=== PATIENT | female | born 1970 ===

== ENCOUNTER 2020-05-26 09:29 | Outpatient (REF) | payer MEDICAID, SELFPAY ==
--- NOTE | 2020-05-26 09:34 | CT_ITS ---
EXAMINATION: CT ABDOMEN WITHOUT AND WITH CONTRAST CLINICAL INFORMATION: Disorder of adrenal gland COMPARISON: CT abdomen and pelvis with and without contrast 06/25/2018 TECHNIQUE: Contiguous axial thin section helical images of the abdomen were performed before and after the administration of oral contrast and 85 mL of Omnipaque 350 intravenous contrast. The data set was reformatted in the coronal and sagittal planes and reviewed on an independent workstation. This CT examination was performed using dose optimization techniques as appropriate, variously including the following: *Automated exposure control *Adjustment of mA and/or kV according to patient size (this includes techniques or standardized protocols for targeted exams where dose is matched to indication/reason for exam; i.e. extremities or head) *Use of iterative reconstruction technique DLP: 578 mGy-cm FINDINGS: LUNG BASES: There is dependent bibasilar atelectasis. The heart size is normal. LIVER, GALLBLADDER, AND BILIARY TREE: The liver is normal size, shape and position. There is homogeneous liver enhancement without any focal lesion or intrahepatic ductal dilatation. The gallbladder is nondistended but appears unremarkable. PANCREAS: The pancreas is normal size and shape. No focal lesion seen. SPLEEN: The spleen is unremarkable. ADRENAL GLANDS AND KIDNEYS: The right adrenal lesion measuring 2.2 x 1.6 cm. On precontrast it measures -9 Hounsfield units. On immediate post contrast, it measures 58 Hounsfield units and delayed 10 minute washout measures 21 Hounsfield units. Relative washout of greater than 40% and low precontrast value is suggestive of adenoma. The left adrenal gland measures 1.3 x 1.0 cm. On precontrast exam, it measures 9.14 Hounsfield units. On immediate postcontrast exam, it measures 80 Hounsfield units and delayed 10 minute postcontrast images it measures 20 Hounsfield units. The absolute washout greater than 60%, relative washout greater than 75% suggestive of adenoma. Both kidneys are normal size, shape and position. No enhancing renal mass seen. There is a nonobstructive 2 mm radiopaque calculi, upper pole calyx left kidney. There is a 5 mm small nonenhancing cyst, upper pole right kidney. BOWEL LOOPS: Scattered stool and gas seen throughout the colon without any significant distention. The small bowel loops are normal caliber. The appendix has been surgically removed. LYMPH NODES: No abnormal size retroperitoneal or mesenteric lymph nodes seen. VASCULAR: Unremarkable. PELVIS: On partially visualized pelvis, the uterus is heterogenous and enlarged most likely from fibroid disease. BONES: There are 2 cages at L5-S1 disc level for disc fusion. No lytic or sclerotic process seen. CT/CT abdomen wo/w con IMPRESSION: 1. Bilateral adrenal adenomas. They are stable. 2. A non-obstructive 2 mm radiopaque calculi, upper pole left kidney. No hydronephrosis seen. 3. Bulky enlarged uterus, heterogenous most likely fibroid disease. These findings were seen on the previous CT abdomen and pelvic exam 06/25/2018.
[2020-05-26] MEDS: iohexoL 350 MG/ML 100 ML INFUS..BTL IV (11:05)
== END 2020-05-26 09:30 | disposition home or self-care (01) ==
LOC: HO.CT 09:29
PROVIDERS: PCP Internal Medicine; Visit Provider Internal Medicine
DX: E27.9 Disorder of adrenal gland, unspecified (principal); K31.9 Disease of stomach and duodenum, unspecified; R93.5 Abnormal findings on diagnostic imaging of other abdominal regions, including retroperitoneum
CPT/HCPCS: 74170; Q9967

== ENCOUNTER → 2020-09-24 10:54 | Outpatient (BNVA) | payer MEDICAID, SELFPAY | PROVIDERS: PCP Internal Medicine; Visit Provider Obstetrics & Gynecology ==

== ENCOUNTER 2020-10-07 13:12 | Outpatient (REF) | payer MEDICAID, SELFPAY ==
[2020-10-07 15:02] LABS: Hematocrit 48.3 % (37-47); Mean Corpuscular HGB Conc 33.1 g/dl (31.0-35.0); Mean Corpuscular Volume 96.6 fL (80-98); Mean Platelet Volume 10.1 fL (9.4-12.3); Platelet Count 286 X10*3/uL (160-400); Red Cell Distribution Width 12.8 % (11.0-16.0); White Blood Count 11.1 X10*3/uL (4.8-10.8)
[2020-10-07 17:47] LABS: HCG Quantitative < 2 mIU/mL; Thyroid Stimulating Hormone 0.36 uIU/mL (0.32-4.0)
[2020-10-07 17:59] LABS: CT PCR NOT DETECTED (Not Detect.); NG PCR NOT DETECTED (Not Detect.)
[2020-10-10 01:07] LABS: HPV mRNA E6/E7 rflx Not Detected (Not Detected)
== END 2020-10-07 13:13 | disposition home or self-care (01) ==
LOC: HO.LAB 13:12
PROVIDERS: PCP Internal Medicine; Visit Provider Obstetrics & Gynecology
DX: N92.1 Excessive and frequent menstruation with irregular cycle (principal)
CPT/HCPCS: 36415; 58100; 58301; 84443; 84702; 85027; 87491; 87591; 87624; 88142; 88305; 99212

== ENCOUNTER 2020-10-14 10:56 | Outpatient (REF) | payer MEDICAID, SELFPAY ==
--- NOTE | ~2020-10-14 | US_ITS ---
EXAMINATION: PELVIC ULTRASOUND CLINICAL INFORMATION: Excessive and frequent menstruation with irregular cycle COMPARISON: Previous Pelvic ultrasound December 2018 and pelvic MRI January 2019 TECHNIQUE: transabdominal and transvaginal pelvic ultrasound was performed. Transvaginal exam was performed for better visualization of the uterus and ovaries. FINDINGS: The uterus is anteverted. The uterus is enlarged measuring 11.3 x 7.6 x 8.6 cm in dimension. Uterine echotexture is diffusely heterogeneous again suggestive of adenomyosis. There are 3 small focal hypoechoic uterine lesions measuring 2 x 1.1 x 1.9 cm in the anterior uterine body, 1.6 x 1.2 x 1.4 cm in the right uterine body and 0.8 x 0.6 x 1.1 cm in the anterior uterine body questionable for focal adenomyomas versus small fibroids. There are small cysts seen in the uterus near the endometrium. The endometrium does not appear thickened measuring 0.4 cm. There are small nabothian cysts in the cervix. The right ovary is enlarged measuring 4.3 x 2.7 x 4.4 cm, volume 27 mL. There is a 3.1 x 2.7 x 3.5 cm simple right ovarian cyst. The left ovary measures 3 x 1.4 x 2.7 cm, volume 7 mL and is normal-appearing. There is no fluid in the pelvis. There is a 1.4 x 1.1 x 2 cm simple cyst seen in the posterior cul-de-sac on transvaginal imaging. US/US pelvic complete IMPRESSION: Enlarged heterogeneous uterus likely related to adenomyomatosis. 3 small focal uterine lesions, largest measuring 2 cm, questionable for focal adenomyomas versus small fibroids. Normal thickness endometrium. 3.1 x 2.7 x 3.5 cm simple right ovarian cyst. 1.4 x 1.1 x 2 cm simple cyst seen on transvaginal imaging in the posterior cul-de-sac.
== END 2020-10-14 10:57 | disposition home or self-care (01) ==
LOC: HO.US 10:56
PROVIDERS: PCP Internal Medicine; Visit Provider Internal Medicine
DX: N92.1 Excessive and frequent menstruation with irregular cycle (principal)
CPT/HCPCS: 76830; 76856

== ENCOUNTER → 2020-10-26 16:02 | Outpatient (BNVA) | payer MEDICAID, SELFPAY | PROVIDERS: PCP Internal Medicine; Visit Provider Obstetrics & Gynecology ==

== ENCOUNTER 2020-11-27 11:22 | Outpatient (REF) | payer MEDICAID, SELFPAY ==
--- NOTE | ~2020-11-27 | MM_ITS ---
EXAMINATION: MM SCREENING DIGITAL BREAST TOMOSYNTHESIS, BILATERAL CLINICAL INFORMATION: Screening. Asymptomatic. History reduction mammoplasty 2013. Due for yearly. The lifetime risk of breast cancer based on the Tyrer-Cuzick Model is 11%. COMPARISON: Mammography: 10/09/2018, 04/05/2017, 12/24/2015, 07/10/2014, 05/15/2017, 12/24/2015, 07/10/2014 TECHNIQUE: Digital breast tomosynthesis is performed in both the craniocaudal and mediolateral oblique views along with computer-aided detection (CAD). Synthesized 2D images are generated from the tomosynthesis. FINDINGS: There are scattered areas of fibroglandular density (ACR BI-RADS breast composition Category b). Parenchymal pattern is similar to prior studies. There are shifting fibroglandular densities from year to year consistent positioning and compression without significant mass, architectural abnormality, or abnormal calcifications. The axilla and skin contours are unremarkable. No significant changes. MM/MM tomosynthesis screening BI IMPRESSION: No significant changes from prior studies. ASSESSMENT: BI-RADS 2: Benign RECOMMENDATION: Routine annual mammography screening. This patient's information was entered into a reminder system with a target due date for their next mammogram.
== END 2020-11-27 11:23 | disposition home or self-care (01) ==
LOC: HO.MAMMO 11:22
PROVIDERS: PCP Internal Medicine; Visit Provider Obstetrics & Gynecology
DX: Z12.31 Encounter for screening mammogram for malignant neoplasm of breast (principal)
CPT/HCPCS: 77063; 77067

== ENCOUNTER 2021-03-10 14:13 | Outpatient (REF) | payer MEDICAID, SELFPAY ==
[2021-03-10 16:14] LABS: Hematocrit 36.7 % (37-47); Hemoglobin 11.4 g/dl (12.0-16.0); Mean Corpuscular HGB Conc 31.1 g/dl (31.0-35.0); Mean Corpuscular Hemoglobin 25.1 pg (27.0-33.0); Mean Corpuscular Volume 80.8 fL (80-98); Mean Platelet Volume 9.9 fL (9.4-12.3); Red Blood Count 4.54 X10*6/uL (4.20-5.50); Red Cell Distribution Width 16.4 % (11.0-16.0); White Blood Count 11.2 X10*3/uL (4.8-10.8)
[2021-03-10 16:28] LABS: Platelet Count 463 X10*3/uL (160-400)
== END 2021-03-10 14:14 | disposition home or self-care (01) ==
LOC: HO.LAB 14:13
PROVIDERS: PCP Internal Medicine; Visit Provider Obstetrics & Gynecology
DX: N93.9 Abnormal uterine and vaginal bleeding, unspecified (principal)
CPT/HCPCS: 36415; 85027; 99212

== ENCOUNTER 2022-04-06 14:54 | Outpatient (REF) | payer MEDICAID, SELFPAY ==
--- NOTE | ~2022-04-06 | MM_ITS ---
EXAMINATION: MM SCREENING DIGITAL BREAST TOMOSYNTHESIS, BILATERAL CLINICAL INFORMATION: Screening. Asymptomatic. History reduction mammoplasty, 2013. The lifetime risk of breast cancer based on the Tyrer-Cuzick Model is 11%. COMPARISON: Mammography: 11/27/2020, 10/09/2018, 04/05/2017 TECHNIQUE: Digital breast tomosynthesis is performed in both the craniocaudal and mediolateral oblique views along with computer-aided detection (CAD). Synthesized 2D images are generated from the tomosynthesis. FINDINGS: There are scattered areas of fibroglandular density (ACR BI-RADS breast composition Category b). There are no significant masses, abnormal calcifications, or other abnormalities. Parenchymal pattern is similar to prior studies. There is no developing density or architectural abnormality. The axilla and skin contours are unremarkable. No significant changes. MM/MM tomosynthesis screening BI IMPRESSION: No mammographic evidence of malignancy. ASSESSMENT: BI-RADS 1: Negative RECOMMENDATION: Routine annual mammography screening. This patient's information was entered into a reminder system with a target due date for their next mammogram.
== END 2022-04-06 14:55 | disposition home or self-care (01) ==
LOC: HO.MAMMO 14:54
PROVIDERS: Visit Provider Internal Medicine
DX: Z12.31 Encounter for screening mammogram for malignant neoplasm of breast (principal)
CPT/HCPCS: 77063; 77067

== ENCOUNTER → 2022-04-12 08:42 | Outpatient (BNVA) | payer MEDICAID, SELFPAY | PROVIDERS: PCP Internal Medicine; Visit Provider Obstetrics & Gynecology | DX: N92.0 Excessive and frequent menstruation with regular cycle (principal) | CPT/HCPCS: 99212 ==

== ENCOUNTER → 2022-10-27 10:28 | Outpatient (BNVA) | payer MEDICAID, SELFPAY | PROVIDERS: PCP Internal Medicine; Visit Provider Obstetrics & Gynecology ==

== ENCOUNTER 2022-11-10 11:00 | Outpatient (REF) | payer MEDICAID, SELFPAY ==
--- NOTE | ~2022-11-10 | US_ITS ---
EXAMINATION: US PELVIS COMPLETE CLINICAL INFORMATION: Leiomyoma; the last menstrual period was 3 weeks prior. COMPARISON: Pelvic ultrasound dated 10/14/2020; MRI pelvis dated 02/13/2019. TECHNIQUE: Transabdominal imaging was performed. FINDINGS: The uterus is of normal size and echogenicity, measuring 12.4 x 7.3 x 8.8 cm. The uterus is anteverted and anteflexed. There is asymmetric thickening of the posterior myometrium, raising the possibility of adenomyosis. A regular, homogeneous endometrium is identified measuring 0.5 cm. Nabothian cysts are seen within the cervix FIBROIDS: There are 5 fibroids seen. 1. Location: Rightward mid body, subendometrial. Size: 1.9 x 1.2 x 1.3 cm. Prior: 0.8 x 0.6 x 1.1 cm. Fibroid characteristics: Heterogeneous echotexture. 2. Location: Leftward body, myometrial. Size: 1.5 x 0.7 x 1.1 cm. Prior: Not seen. Fibroid characteristics: Heterogeneous echotexture. 3. Location: Upper rightward body, subendometrial. Size: 1.6 x 2.7 x 2.0 cm. Prior: 2.0 x 1.1 x 1.9 cm per Fibroid characteristics: Hyperechoic. 4. Location: Left isthmus, myometrial. Size: 1.1 x 1.1 x 0.8 cm. Prior: Not seen. Fibroid characteristics: Heterogeneous echotexture. 5. Location: Rightward fundus, myometrial. Size: 1.9 x 1.9 x 2.0 cm. Prior: 1.6 x 1.2 x 1.4 cm. Fibroid characteristics: Heterogeneous echotexture. Both ovaries are of normal size and echogenicity. The right ovary measures 3.2 x 2.5 x 1.8 cm for a volume of 7.5 mL. The left ovary measures 4.3 x 1.9 x 2.7 cm for a volume of 11.6 mL. The left ovary contains a 2.0 cm anechoic, simple, dominant follicle. There is a small amount of free fluid in the cul-de-sac. Within the cul-de-sac, a 2.2 x 1.2 x 1.9 cm simple cyst is seen, possibly a paraovarian cyst. US/US pelvic and transvaginal IMPRESSION: 1. There is uterine fibroid disease. 2. There is asymmetric thickening of the posterior myometrium, raising the possibility of adenomyosis. This is consistent with prior MRI findings. 3. Nabothian cysts are seen within the cervix. 4. A 2.0 cm benign, simple left ovarian cyst is seen, for which no imaging follow-up is recommended. 5. Within the cul-de-sac, a 2.2 cm simple cyst is seen, possibly a paraovarian cyst. 6. A 2.0 cm benign, simple left ovarian dominant follicle is noted.
== END 2022-11-10 11:01 | disposition home or self-care (01) ==
LOC: HO.US 11:00
PROVIDERS: PCP Internal Medicine; Visit Provider Obstetrics & Gynecology
DX: D25.9 Leiomyoma of uterus, unspecified (principal)
CPT/HCPCS: 76830; 76856

== ENCOUNTER → 2022-12-01 10:08 | Outpatient (BNVA) | payer MEDICAID, SELFPAY | PROVIDERS: PCP Internal Medicine; Visit Provider Obstetrics & Gynecology | DX: D25.9 Leiomyoma of uterus, unspecified (principal) | CPT/HCPCS: 99212 ==

== ENCOUNTER 2023-04-28 15:10 | Outpatient (REF) | payer MEDICAID, SELFPAY | END 2023-04-28 15:11 | disposition home or self-care (01) | LOC: HO.MAMMO 15:10 | PROVIDERS: PCP Internal Medicine; Visit Provider Internal Medicine | DX: Z12.31 Encounter for screening mammogram for malignant neoplasm of breast (principal) | CPT/HCPCS: 77063; 77067 ==

== ENCOUNTER → 2023-04-28 15:15 | Outpatient (BNV) | payer MEDICAID, SELFPAY | PROVIDERS: PCP Internal Medicine; Visit Provider Radiology Diagnostic Radiology | DX: Z12.31 Encounter for screening mammogram for malignant neoplasm of breast (principal) | CPT/HCPCS: 77063; 77067 ==

== ENCOUNTER 2023-11-09 10:06 | Outpatient (AMB) | payer MEDICAID, SELFPAY ==
[2023-11-09 10:25] VITALS: BP 112/68; BMI 30.3
--- NOTE | 2023-11-09 10:25 | A.OFFVIS_ITS ---
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 No complaints. Last Pap/HPV was negative in 10/21 Last Mammogram was BI-RADS 1 in 04/24 Last pelvic ultrasound in 11/22 showed multiple myomas Last Colonoscopy was few years ago, the patient is unsure of the date but was told by her PCP that she has not due for a screening colonoscopy this year [facility] Medical History HTN (hypertension) H/O nephrolithotomy with removal of calculi Back problem Kidney stones Surgical History History of appendectomy Hx of abdominoplasty History of breast reconstruction History of bilateral tubal ligation Family History Mother HTN (hypertension) Father Emphysema lung Social History (Updated 11/09/23 @ 10:33 by Marsha Thomas CMA) Household Members Other:: daughter Housing: House Alcohol intake: never Patient Tobacco Use Status: Current everyday Tobacco user Cigarettes Per Day: 1 Current occupational status: unemployed Sexually active: Yes Sexual orientation: Straight/Heterosexual Gender identity: Female Female Reproductive History Menstrual Age of Menarche: 13 Date of last menstrual period: 10/15/23 Total pregnancies: 3 Full term: 2 Number of Living Children: 2 Ab spontaneous: 1 Date of last pap smear: 10/08/20 Date of Mammogram: 04/28/23 Review of Systems Const All systems reviewed & are unremarkable except as noted in HPI and below Card Reports as per HPI Resp Reports as per HPI GI Reports as per HPI and Reports no additional complaints Reports as per HPI Physical Exam Vital Signs: BMI result Body Mass Index 30.3 Const General: cooperative, healthy appearing and comfortable Chest Chest palpation & inspection: normal inspection of the chest and normal palpa tion of entire chest wall Breast/axilla inspection: normal inspection of the breasts and normal inspection of the axillae Breast/axilla palpation: normal palpation of the breasts, normal palpation of the axillae and no axillary lymphadenopathy Resp Effort & Inspection: normal respiratory effort Auscultation: clear to auscultation bilaterally Percussion: percussion normal Cardio Palpation: normal PMI Rate: regular rate Rhythm: regular rhythm Heart sounds: no murmurs and no rubs Peripheral pulses: Peripheral pulses 2+ throughout GI Inspection: Yes normal to inspection Palpation (GI): Soft to palpation, nontender, no guarding, not rigid and No hepatosplenomegaly present Percussion: Yes normal to percussion Auscultation: normal bowel sounds Rectal Exam - Female: deferred General: Yes bladder normal to palpation External Female Exam: No lesion Speculum Exam - Vagina: normal appearance of the vagina, normal palpation, normal vaginal discharge and not erythematous Speculum Exam - Cervix: normal appearance of the cervix and normal palpation Bimanual exam- vagina & uterus: normal bimanual exam, normal palpation, uterine size normal, bladder normal to palpation, consistency normal and normal palpation Bimanual Exam- Adnexa, other: normal adnexae, no masses and no tenderness Assessment & Plan Assessment & Plan (1) Well woman exam: Code(s): Z01.419 - Encounter for gynecological examination (general) (routine) without abnormal findings Category: Medical Plan: Co testing not indicated this year. Counseled the patient about the recommended dietary allowance of 1200 mg of Calcium & 600 IU of vitamin D. Instructions given the patient check on her next due date for her screening colonoscopy and to schedule next screening Mammogram in 04/25. The patient was instructed to perform monthly self-breast exams and schedule annual exam in a year. All questions answered and the patient verbalized understanding. (2) Uterine myoma: Code(s): D25.9 - Leiomyoma of uterus, unspecified Category: Medical Plan: Will repeat pelvic ultrasound and compare the size of previous myomas. Instructions given the patient to schedule the ultrasound and a follow-up appointment, all questions answered, the patient verbalized understanding Orders: Orders US pelvic and transvaginal Today D25.9 - Leiomyoma of uterus, unspecified Coding Level of Care Code Est Pt Prev Care 40-64y(87375) Diagnoses Well woman exam Z01.419 Uterine myoma D25.9
== END 2023-11-09 10:47 | disposition home or self-care (01) ==
LOC: HO.HWS 10:06
PROVIDERS: PCP Internal Medicine; Visit Provider Obstetrics & Gynecology
DX: Z01.419 Encounter for gynecological examination (general) (routine) without abnormal findings (principal); D25.9 Leiomyoma of uterus, unspecified
CPT/HCPCS: 99396

== ENCOUNTER → 2023-11-09 10:06 | Outpatient (BNVA) | payer MEDICAID, SELFPAY | PROVIDERS: PCP Internal Medicine; Visit Provider Obstetrics & Gynecology | DX: Z01.419 Encounter for gynecological examination (general) (routine) without abnormal findings (principal); D25.9 Leiomyoma of uterus, unspecified | CPT/HCPCS: 99396 ==

== ENCOUNTER 2023-11-21 11:20 | Outpatient (REF) | payer MEDICAID, SELFPAY ==
--- NOTE | ~2023-11-21 | US_ITS ---
EXAMINATION: US PELVIS COMPLETE CLINICAL INFORMATION: Leiomyoma; the last menstrual period was on 11/14/2023. COMPARISON: Pelvic ultrasound dated 11/10/2022. TECHNIQUE: Transabdominal imaging was performed. FINDINGS: The uterus is of normal size and echogenicity, measuring 1.2 x 7.8 x 8.2 cm. The uterus is anteverted and anteflexed. A regular homogeneous endometrium is identified measuring 0.5 cm. Nabothian cysts are seen within the cervix FIBROIDS: There are 5 fibroids seen. 1. Location: Rightward body, myometrial. Size: 1.1 x 0.8 x 1.1 cm. Prior: 1.9 x 1.2 x 1.3 cm. Fibroid characteristics: Heterogeneously hypoechoic. 2. Location: Leftward body, subserosal. Size: 1.4 x 1.2 x 1.3 cm. Prior: 1.5 x 0.7 x 1.1 cm. Fibroid characteristics: Heterogeneous echotexture. 3. Location: Upper rightward body, subendometrial. Size: 2.2 x 1.4 x 2.5 cm. Prior: 1.6 x 2.7 x 2.0 cm. Fibroid characteristics: Hypoechoic. 4. Location: Upper leftward body towards the isthmus, myometrial. Size: 1.8 x 1.5 x 1.4 cm. Prior: 1.1 x 1.1 x 0.8 cm. Fibroid characteristics: Heterogeneously hypoechoic. 5. Location: Rightward fundus, myometrial. Size: 1.7 x 1.4 x 1.5 cm. Prior: 1.9 x 1.9 x 2.0 cm. Fibroid characteristics: Heterogeneously hypoechoic. Both ovaries are of normal size and echogenicity. [The ovaries show normal doppler flow.] The right ovary measures 2.8 x 2.3 x 2.2 cm for a volume of 7.4 mL. The left ovary measures 3.1 x 2.5 x 1.7 cm for a volume of 6.9 mL. The left ovary contains a 1.8 cm benign, simple follicle, for which no imaging follow-up is recommended. There is no pelvic free fluid. No adnexal solid mass is seen. A 2.2 x 1.2 x 2.1 cm left paraovarian cyst is seen. US/US pelvic and transvaginal IMPRESSION: 1. Multiple uterine fibroids are redemonstrated. 2. Nabothian cysts are seen within the cervix. 3. A 2.2 cm left paraovarian cyst is seen.
== END 2023-11-21 11:21 | disposition home or self-care (01) ==
LOC: HO.US 11:20
PROVIDERS: PCP Internal Medicine; Visit Provider Obstetrics & Gynecology
DX: D25.9 Leiomyoma of uterus, unspecified (principal)
CPT/HCPCS: 76830; 76856

== ENCOUNTER 2024-02-05 11:48 | Outpatient (AMB) | payer MEDICAID, SELFPAY ==
--- NOTE | 2024-02-05 11:49 | MHC.OFFVIS ---
Intake Visit Reasons: U/S follow up Allergies No Known Allergies [No Known Allergies*] Allergy (Verified 11/09/23 10:31) HPI Comments Details: The patient is scheduled telehealth visit to discuss the results the pelvic ultrasound. No pelvic pain or pressure symptoms with the patient's bleeding is controlled with TXA Recent pelvic ultrasound showed the following: The uterus is of normal size and echogenicity, measuring 1.2 x 7.8 x 8.2 cm. The uterus is anteverted and anteflexed. A regular homogeneous endometrium is identified measuring 0.5 cm. Nabothian cysts are seen within the cervix FIBROIDS: There are 5 fibroids seen. 1. Location: Rightward body, myometrial. Size: 1.1 x 0.8 x 1.1 cm. Prior: 1.9 x 1.2 x 1.3 cm. Fibroid characteristics: Heterogeneously hypoechoic. 2. Location: Leftward body, subserosal. Size: 1.4 x 1.2 x 1.3 cm. Prior: 1.5 x 0.7 x 1.1 cm. Fibroid characteristics: Heterogeneous echotexture. 3. Location: Upper rightward body, subendometrial. Size: 2.2 x 1.4 x 2.5 cm. Prior: 1.6 x 2.7 x 2.0 cm. Fibroid characteristics: Hypoechoic. 4. Location: Upper leftward body towards the isthmus, myometrial. Size: 1.8 x 1.5 x 1.4 cm. Prior: 1.1 x 1.1 x 0.8 cm. Fibroid characteristics: Heterogeneously hypoechoic. 5. Location: Rightward fundus, myometrial. Size: 1.7 x 1.4 x 1.5 cm. Prior: 1.9 x 1.9 x 2.0 cm. Fibroid characteristics: Heterogeneously hypoechoic. Both ovaries are of normal size and echogenicity. [The ovaries show normal doppler flow.] The right ovary measures 2.8 x 2.3 x 2.2 cm for a volume of 7.4 mL. The left ovary measures 3.1 x 2.5 x 1.7 cm for a volume of 6.9 mL. The left ovary contains a 1.8 cm benign, simple follicle, for which no imaging follow-up is recommended. There is no pelvic free fluid. No adnexal solid mass is seen. A 2.2 x 1.2 x 2.1 cm left paraovarian cyst is seen. PFSH Medical History HTN (hypertension) H/O nephrolithotomy with removal of calculi Back problem Kidney stones Surgical History History of appendectomy Hx of abdominoplasty History of breast reconstruction History of bilateral tubal ligation Family History Mother HTN (hypertension) Father Emphysema lung Social History Household Members Other:: daughter Housing: House Alcohol intake: never Patient Tobacco Use Status: Current everyday Tobacco user Cigarettes Per Day: 1 Current occupational status: unemployed Sexual orientation: Straight/Heterosexual Gender identity: Female Female Reproductive History Menstrual Age of Menarche: 13 Review of Systems Const All systems reviewed & are unremarkable except as noted in HPI and below Reports as per HPI and Reports no additional complaints GI Reports no additional complaints Reports no additional complaints Telehealth Telehealth Telehealth Platform: Telephone Location of provider rendering services: practice address Location of patient: address on file Patient Identification confirmed using: Name, : Yes Telehealth method: video Patient verbally consented to treatment: Yes Patient verbally consented to billing insurance company: Yes Patient informed of any privacy concerns related to visit: Yes Assessment & Plan Assessment & Plan (1) Uterine myoma: Code(s): D25.9 - Leiomyoma of uterus, unspecified Category: Medical Plan: Discussed with the patient the findings on pelvic ultrasound & the risk of myosarcoma; discussed with the patient the options of treatment including expectant management versus hysterectomy; the pros and cons, risks benefits of each approach were discussed with the patient including the fact that in cases of myosarcoma, surgical treatment can lead to early diagnosis and positively affects the prognosis; after further discussion, the patient decided to proceed with expectant management. Will repeat pelvic ultrasound periodically. Instructions given to patient to call in case any of the following occurs: pressure symptoms, abnormal uterine bleeding, pelvic pain; and to schedule a future office follow-up appointment for reassessment and to order a repeat ultrasound . All questions answered, the patient verbalized understanding and agreed with the plan . I spent a total of 20 minutes reviewing the chart, talking to the patient via video and documenting in the medical record. Medications: Refilled tranexamic acid 1,300 mg (2 x 650 mg) PO TID 5 days 30 tabs 11RF Coding Level of Care Code Tele Est Pt Level 1 (82340) Diagnoses Uterine myoma D25.9
== END 2024-02-05 13:13 ==
LOC: HO.HWS 11:48
PROVIDERS: PCP Internal Medicine; Visit Provider Obstetrics & Gynecology
DX: D25.9 Leiomyoma of uterus, unspecified (principal)
CPT/HCPCS: 99211

== ENCOUNTER → 2024-02-05 11:48 | Outpatient (BNVA) | payer MEDICAID, SELFPAY | PROVIDERS: PCP Internal Medicine; Visit Provider Obstetrics & Gynecology ==

== ENCOUNTER 2024-04-09 11:14 | Outpatient (REF) | payer MEDICAID, SELFPAY ==
--- NOTE | ~2024-04-09 | XR_ITS ---
EXAMINATION: XR WRIST, LEFT CLINICAL INFORMATION: Wrist pain COMPARISON: None available. TECHNIQUE: PA, lateral, and oblique views of the left wrist. FINDINGS: The bones and soft tissues are normal. No fracture. Alignment is anatomic with normal joint spaces. No erosions or abnormal soft tissue calcifications. XR/XR wrist LT min 3V IMPRESSION: Normal left wrist. Electronically signed by: Lukas Sal MD 04/09/2024 03:26 PM EDT RP
== END 2024-04-09 11:15 | disposition home or self-care (01) ==
LOC: HO.HHCX 11:14
PROVIDERS: Visit Provider Internal Medicine
DX: M25.532 Pain in left wrist (principal)
CPT/HCPCS: 73110

== ENCOUNTER 2024-06-11 14:18 | Outpatient (REF) | payer MEDICAID, SELFPAY | END 2024-06-11 14:19 | disposition home or self-care (01) | LOC: HO.MAMMO 14:18 | PROVIDERS: PCP Internal Medicine; Visit Provider Internal Medicine | DX: Z13.89 Encounter for screening for other disorder (principal) ==

== ENCOUNTER 2024-06-13 09:16 | Outpatient (AMB) | payer MEDICAID, SELFPAY ==
--- NOTE | 2024-06-13 09:28 | A.OFFVIS_ITS ---
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 Operations Specialist: Pharmacy Operations Specialist Present (Teodora) Accompanied by: Self / Same As Patient Allergies No Known Allergies [No Known Allergies*] Allergy (Verified 06/13/24 09:32) HPI Comments Details: Presenting complaining left breast tender lump no associated nipple discharge [facility] Medical History HTN (hypertension) H/O nephrolithotomy with removal of calculi Back problem Kidney stones Surgical History History of appendectomy Hx of abdominoplasty History of breast reconstruction History of bilateral tubal ligation Family History Mother HTN (hypertension) Father Emphysema lung Social History Household Members Other:: daughter Housing: House Alcohol intake: never Patient Tobacco Use Status: Current everyday Tobacco user Cigarettes Per Day: 1 Current occupational status: unemployed Sexual orientation: Straight/Heterosexual Gender identity: Female Female Reproductive History Menstrual Age of Menarche: 13 Duration of menses: 3-5 days Date of last menstrual period: 05/31/24 Physical Exam Chest Chest palpation & inspection: normal inspection of the chest, normal palpation of entire chest wall and abnormal inspection of the chest Breast/axilla inspection: normal inspection of the breasts, normal inspection of the axillae and abnormal inspection of the axilla Breast/axilla palpation: normal palpation of the breasts (Right breast within normal, left breast 02:00 o'clock 9 cm from the nipple ) Assessment & Plan Assessment & Plan (1) Breast lump on left side at 2 o'clock position: Code(s): N63.21 - Unspecified lump in the left breast, upper outer quadrant Category: Medical Plan: Discussed with the patient the finding on Breast exam (breast lump) .The differential diagnosis includes but not limited to lump/cyst/pre cancer/cancer o r dense breast tissue. The work up includes breast US and diagnostic mammogram and referred the patient for surgical breast consult. Instructed the patient to call our office back in case a referral appointment is not scheduled, missed or canceled so that we will assist on rescheduling another appointment, the patient verbalized understanding agreed with the plan. Orders: Orders MM tomosynthesis diagnostic BI Today N63.21 - Unspecified lump in the left breast, upper outer quadrant US breast LT complete Today N63.21 - Unspecified lump in the left breast, upper outer quadrant Coding Level of Care Code Est Pt Level 3 (31490) Diagnoses Breast lump on left side at 2 o'clock position N63.21
== END 2024-06-13 09:50 | disposition home or self-care (01) ==
PROVIDERS: PCP Internal Medicine; Visit Provider Obstetrics & Gynecology
DX: N63.21 Unspecified lump in the left breast, upper outer quadrant (principal)
CPT/HCPCS: 99213

== ENCOUNTER → 2024-06-13 09:16 | Outpatient (BNVA) | payer MEDICAID, SELFPAY | PROVIDERS: PCP Internal Medicine; Visit Provider Obstetrics & Gynecology | DX: N63.21 Unspecified lump in the left breast, upper outer quadrant (principal) | CPT/HCPCS: 99212 ==

== ENCOUNTER 2024-07-09 06:20 | Outpatient (REF) | payer MEDICAID, SELFPAY ==
--- NOTE | 2024-07-09 | EMG_ITS ---
Left median and ulnar motor and sensory studies were performed. Left radial and median and lateral antecubital brachial sensory studies were performed and paraspinal muscles were tested with a needle. IMPRESSION: Mild left median neuropathy across carpal tunnel. MD JOURDAN Pratt/DARIUSZ / [id number]
== END 2024-07-09 06:21 | disposition home or self-care (01) ==
LOC: HO.NEURO 06:20
PROVIDERS: PCP Internal Medicine; Visit Provider Internal Medicine
DX: M25.532 Pain in left wrist (principal)
CPT/HCPCS: 95886; 95910

== ENCOUNTER 2024-08-15 10:29 | Outpatient (REF) | payer MEDICAID, SELFPAY ==
--- OUTSIDE RECORDS SUMMARY | 2024-08-15 11:13 | XMS_ITS | Encounter Summary ---
Author Organization [employer] Address [address] [place] [address] Care Team Providers Care Call Center Support Representative Name Role Phone Marvin Harden MD Primary Care Provide r Reason for Visit * Reason Onset Date Comments Chart Prep 08/08/2024 Encounter Details Date Type Department Care Team ([facility] st Contact Info) Description 08/08/2024 Telephone [facility] MEDICINE [address] [place], [place] [phone] Marvin Harden MD [address] [place], [place] [phone] Chart Prep Social History Tobacco Use Types Packs/Day Years Used Date Smoking Tobacco: Every Day Cigarettes 0.5 39.1 Started: 1985 Passive Smoke Exposure: Current Smokeless Tobacco: Never Alcohol Use Standard Drinks/Week Comments Not Currently 0 (1 standard drink = 0.6 oz pur e alcohol) Depression Answer Date Recorded Patient Health Questionnaire-9 Score 15 04/09/2024 Patient Health Questionnaire-9 Score 15 04/09/2024 Last PHQ-9: Questionnaire Data Not on file 1 Housing Stability Answer Date Recorded What is your housing situation today? I have cayla knight 04/09/[address] you li ve. Do you have problems with any of the following? None of the above 04/09/2024 Food Insecurity Answer Date Recorded Within the past 12 months, y ou worried that your food would run out before you got money to buy more: Never True 04/09/2024 Within the past 12 months,th e food you bought just didn't last and you didn't have enough money to get more: Never True 02/2024 Transportation Answer Date Recorded In the past 12 months, has l ack of transportation kept you from medical appts, meetings, work or from getting things needed for daily living? No 04/09/2024 Utilities Answer Date Recorded In the past 12 months, has t he electric, gas, oil or water company threatened to shut off services in your home? No 04/09/2024 Depression Answer Date Recorded Patient Health Questionnaire-2 Score 5 04/09/2024 Internet Access Answer Date Recorded Internet Access Q1 Yes 04/09/2024 Internet Access Q2 Not on file 04/09/2024 Comments Unknown Sex and Gender Information Value Date Recorded Sex Assigned at Female 05/02/2022 10:16 AM EDT Legal Sex Female 10:16 AM EDT Gender Identity Female 05/02/2022 10:16 AM EDT Sexual Orientation Straight 05/02/2022 10 :16 AM EDT documented as of this encounter Miscellaneous Notes * Telephone Encounter - Yanet Murray [place] - 08/08/2024 2:39 PM EST Chart Prep Labs: not done Images: done Vaccines due: Covid Due, Hep A Due, PCV20 Due, and Flu Due Referrals: Not Applicable Screenings: Lung Cancer screening Overdue care gaps: Sbirt and PHQ-9 Chart prep for upcoming appt with Dr.Esparza james LB documented in this encounter Plan of Treatment Upcoming Encounters Date Type Department Care Team (Late st Contact Info) Description 08/20/2024 3:00 PM EST Office Visit [facility] MEDICINE [address] [place] [address] Marvin Harden MD [address] [place] [address] documented as of this encounter Goals Goal Patient Goal Type Associated Problems Recent Progress Patient-Stated? Author Blood Pressure < 140/90 Blood Pressure 134/77( 024 10:05 AM EDT) No Sid Walters, PharmD Quit using tobacco (cigarettes, smokeless, etc) Tobacco Use Tobacco dependence syndrome No Sid Walters, PharmD documented as of this encounter Visit Diagnoses Not on filedocumented in this encounter Additional Health Concerns Assessment Noted Time PHQ-9 Depression Total Score: 15 024 10:06 AM EDT documented as of this encounter Care Teams Call Center Support Representative Relationship Specialty Start Date End Date Marvin Harden MD [address] [place] [address] PCP - General Internal Medicine 07/31/14 documented as of this encounter
--- OUTSIDE RECORDS SUMMARY | 2024-08-15 11:13 | XMS_ITS | Encounter Summary ---
Author Organization [employer] Address [address] [place] [address] Care Team Providers Care Fruit Tester Name Role Phone Marvin Harden MD Primary Care Provide r Reason for Visit * Reason Comments Pre-visit Planning SDOH Screening negat kory and Tobacco screening negative Encounter Details Date Type Department Care Team ([facility] st Contact Info) Description 08/05/2024 Patient Outreach [facility] MEDICINE [address] [place], [place] [phone] Marvin Harden MD [address] [place], [place] [phone] Pre-visit Planning (SDOH Screening negative and Tobacco screening negative) Social History Tobacco Use Types Packs/Day Years [...] AM EDT documented as of this encounter Progress Notes * Ally Stephens - 08/05/2024 11:27 AM EST [facility] placed successful outbound call to patient for pre-visit planning. Patient name and confirmed. Patient confirms appt date and time, and has transportation arrangements. Biggest concern for appointment at this time is left brace script was sent [facility] but patient received a call from them stating they do not do the brace for hand there. Patient haven't been able to contact the [facility] due to keep coming in and out of the hospital with daughter. Spoke with Doris from [facility] send it to [facility] at [address] [place] [address] . Patient aware. Patient advised to bring to appointment a photo id and insurance card. Appropriate screenings completed in anticipation of appointment. Tobacco screening positive. Will need counseling. documented in this encounter Plan of Treatment Upcoming Encounters Date Type Department Care Team ([facility] st Contact Info) Description 08/20/2024 3:00 PM EST Office Visit [facility] MEDICINE [address] [place] [address] Marvin Harden MD [address] [place] [address] documented as of this encounter Goals Goal Patient Goal Type Associated Problems Recent Progress Patient-Stated? Author Blood Pressure < 140/90 Blood Pressure 134/77( 024 10:05 AM EDT) No Yen Waltersl, PharmD Quit using tobacco (cigarettes, smokeless, etc) Tobacco Use Tobacco dependence syndrome No Sid Walters, PharmD documented as of this encounter Visit Diagnoses Not on filedocumented in this encounter Additional Health Concerns Assessment Noted Time PHQ-9 Depression Total Score: 15 024 10:06 AM EDT documented as of this encounter Care Teams Fruit Tester Relationship Specialty Start Date End Date Marvin Harden MD [address] [place] [address] PCP - General Internal Medicine 07/31/14 documented as of this encounter
--- OUTSIDE RECORDS SUMMARY | 2024-08-15 11:13 | XMS_ITS | Clinical Summary ---
Author Organization [facility] Address [address] [place] [address] Care Team Providers Care It Help Desk Analyst Name Role Phone Unavailable Primary Care Provider Unavailabl e Source Comments PLEASE NOTE, if this patient is a minor, it may be UNLAWFUL to discuss sensitive information that is contained in these records (such as FAMILY PLANNING, MENTAL HEALTH or SUBSTANCE ABUSE) with the minor patient's parent or other person without the patient's specific authorization.[facility] Medications ibuprofen (ADVIL,MOTRIN) 600 mg tabletIndication s:Postoperative pain Take 1 Tab by mouth 4 (four) times daily as needed for pain 18 Tab 8 Active fluoride, sodium, (SF 5000 PLUS) 1.1 % creaIndications: Encounter for dental examination Place in mouth once daily apply a thin ribbon on toothbrush. [place] thoroughly once daily for two minutes, preferably at bedtime. After use expectorate. For best results, do not eat, drink, or rinse for 30 minutes. 51 g 2 Active Social History Tobacco Use Types Packs/Day Years Used Date Smoking Tobacco: Every Day Cigarettes Smokeless Tobacco: Never Tobacco Cessation:Ready to Q uit: Not Asked; Counseling Given: Not Answered Social Connections Answer Date Recorded Connectedness 0 03/21/2024 Financial Resource Strain Answer Date R ecorded Financial Resource Strain 0 2021 Stress Answer Date Recorded Stress 0 01/18/2022 Physical Activity Answer Date Recorded Physical Activity 0 01/18/2022 Food Insecurity Answer Date Recorded Food 0 03/28/2024 Transportation Needs Answer Date Record ed Transportation 0 01/18/2022 Housing Stability Answer Date Recorded Housing 0 01/18/2022 Safety and Environment Answer Date Abdirashid rded Safety 0 01/18/2022 Utilities Answer Date Recorded Utilities 0 01/18/2022 Employment Answer Date Recorded Stress 0 03/21/2024 Comments Unknown Sex and Gender Information Value Date Recorded Sex Assigned at Female 01/18/2022 1:33 PM PDT Legal Sex Female 12:40 PM PDT Gender Identity Female 01/18/2022 1:33 PM PDT Sexual Orientation Straight 01/18/2022 1: 33 PM PDT Last Filed Vital Signs Vital Sign Reading Time Taken Comments Blood Pressure 131/77 01/18/2022 2:34 PM EDT Pulse 76 01/18/2022 2:34 PM EDT Temperature - - Respiratory Rate - - Oxygen Saturation - - Inhaled Oxygen Concentration - - Weight - - Height - - Body Mass Index - - Plan of Treatment Health Maintenance Due Date Last Done Comments Dental FMX/Pano 1971 Dental Perio Charting 1971 Diabetes Screening 1971 HPV Screening 1971 Hepatitis C Screening 1971 Lipid Screening 1971 Pap + HPV 1971 Tobacco Cessation Counseling (#1) 1971 Tobacco Screening 1971 HIV Screening 1986 Imm-DTaP/Tdap/Td (1 - Tdap) 1990 Imm-Hepatitis B (1 of 3 - 19+ 3-dose series) 1 Imm-Pneumococcal (1 of 2 - PCV) 1990 Cervical Cancer Screening 1992 Pap Smear 1992 Breast Cancer Screening (Mammogram) 2011 CT Colonography 2016 Colonoscopy 2016 Colorectal Cancer Screening 2016 FIT/gFOBT 2016 Fecal DNA 2016 Flexible Sigmoidoscopy 2016 Imm-Zoster, Recombinant (1 of 2) 2021 Hypertension Screening (#1) 01/18/2023 Dental BW 01/20/2023 01/18/2022 Dental Examination 01/20/2023 01/18/2022 Dental Prophy 01/20/2023 01/18/2022 [id number] ( season) 2024 Imm-Influenza (#1) 2024 Alcohol and Drug Screen 07/03/2024 Depression Annual Screen 07/03/2024 Cervical Ablation/Cold-Knife Conization Discontinued Cervical Cryotherapy Discontinued Colposcopy Discontinued Endometrial Biopsy Discontinued Excision/Leep Discontinued HPV Genotyping Discontinued Vaginal Pap Discontinued Vulvoscopy Discontinued Procedures Procedure Name Priority Date/Time Associated Diagnosis Comments BITEWINGS - FOUR RADIOGRAPHIC IMAGES Routine 01/18/2022 2:20 PM EDT Encounter for dental examination Full PROPHYLAXIS - ADULT Routine 022 2:20 PM EDT Encounter for dental examination PERIODIC ORAL EVALUATION ESTABLISHED PATIENT Routine 01/18/2022 2:20 PM EDT Encounter for dental examination from Last 3 Months or Most Recently Relevant to [employer] Maintenance Insurance [facility] [place] [place] DENTAL
--- OUTSIDE RECORDS SUMMARY | 2024-08-15 11:13 | XMS_ITS | Clinical Summary ---
Author Organization [employer] Address [address] [place] [address] Care Team Providers Care Hardware Installer Name Role Phone Marvin Harden MD Primary Care Provide r Allergies Active Allergy Reactions Criticality Noted Date Comments Doxycycline Rash Low 07/21/2020 Oxycodone-Acetaminophen Rash Low 08/11/2022 Medications tranexamic acid (Lysteda) 650 MG tablet tablet TAKE 2 TABLETS BY MOUTH THREE TIMES DAILY FOR 5 DAYS 07/15/2022 Active fluticasone (Flonase) 50 MCG/ACT nasal spray SHAKE LIQUID AND USE 2 SPRAYS IN EACH NOSTRIL DAILY 07/08/2023 Active lisinopril-hydr oCHLOROthiazide 10-12.5 MG tablet Take 1 tablet by mouth Once per day. 90 tablet 3 01/15/2024 Active meloxicam (Mobic) 15 MG tabletIndicatio ns:Wrist pain, acute, left Take 1 tablet (15 mg) by mouth Once per day. 30 tablet 3 04/09/2024 Active Active Problems Problem Noted Date Diagnosed Date Class 1 obesity due to exces s calories with serious comorbidity and body mass index (BMI) of 31.0 to 31.9 in adult 04/09/2024 Assessment & Plan (04/09/2024 10:14 AM EDT): Patient has been counseled and educated about diet and exercise. Personal goal of weight loss discussedPatient has comorbidity of: HTN Wrist pain, acute, left 04/09/2024 Assessment & Plan (04/09/2024 10:35 AM EDT): Patient with c/o new onset left wrist pain intensity 4/10 not associated with any trauma. On exam there is tenderness, but no redness, no swelling, no increase in temperature. Equivocal phallen maneuver Etiology ? OA VS CTS Plan: Plain films left wrist. NSAIDS, NCS, Wrist splint at night Follow up if no improvement. Might need OT Endometriosis of uterus 08/11/2022 Assessment & Plan (04/09/2024 10:10 AM EDT): Here for a f/u Under the care of Scouring Train Operator Dr. Sven Colin , last seen 02/05/2024, Last U/S 12/11/2023 Previously she had a Pelvic MRI on 03/16/2016 showed: 1. A 1.4 x 1.3 cm nodule extending from the inferior endometrial surface to project into the endometrial cavity. This is nonspecific in etiology, and may represent a uterine fibroid. An endometrial polyp is considered less likely. A malignant lesion is also considered less likely. Attention on follow-up imaging recommended to ensure stability (consider 6-month followup pelvic MRI without and with contrast) Repeat MRI 02/13/2019 showed: 1. Enlarged uterus similar to prior studies. Probable diffuse underlying adenomyosis. No focal fibroid. 2. Trace fluid cul-de-sac. No significant ascites. No adnexal mass. 3. Prominent gonadal veins on CT 2018, not well visualized on current study. If there is concern for pelvic congestion syndrome, then interventional radiology consult would be recommended. for this reason she was referred to Sven Colin RADAR SCIENTIST . He repeated her Pelvis US that once again showed an enlarged uterus suggestive of adenomyosis. He also did an endometrial biopsy on 04/24/2019 that was negative for malignancy Pt will continue to follow with Dr. Colin Last U/S 12/2023: Multiple uterine fibroids are redemonstrated. Nabothian cysts are seen within the cervix. A 2.2 cm left paraovarian cyst is seen Assessment & Plan (08/11/2022 12:42 PM EST): Here for a f/u Under the care of Scouring Train Operator Dr. Sven Colin , last seen 03/10/2021, Last U/S 10/14/2020 Previously she had a Pelvic MRI on 03/16/2016 showed: 1. A 1.4 x 1.3 cm nodule extending from the inferior endometrial surface to project into the endometrial cavity. This is nonspecific in etiology, and may represent a uterine fibroid. An endometrial polyp is considered less likely. A malignant lesion is also considered less likely. Attention on follow-up imaging recommended to ensure stability (consider 6-month followup pelvic MRI without and with contrast) Repeat MRI 02/13/2019 showed: 1. Enlarged uterus similar to prior studies. Probable diffuse underlying adenomyosis. No focal fibroid. 2. Trace fluid cul-de-sac. No significant ascites. No adnexal mass. 3. Prominent gonadal veins on CT 2018, not well visualized on current study. If there is concern for pelvic congestion syndrome, then interventional radiology consult would be recommended. for this reason she was referred to Sven Colin RADAR SCIENTIST . He repeated her Pelvis US that once again showed an enlarged uterus suggestive of adenomyosis. He also did an endometrial biopsy on 04/24/2019 that was negative for malignancy Pt will continue to follow with Dr. Colin He started her on Lysteda Essential hypertension 08/11/2022 Overview (01/15/2024): Pharmacotherapy: Updated 01/15/24 - Lisinopril/ hydrochlorothiazide 10-12.5mg daily History: Updated 01/15/24 Started CDTM in April 2022. Cares for 22 yo daughter who is blind which is a highly stressful for patient. Hydrochlorothiazide was switched to Lisinopril/ hydrochlorothiazide 10-12.5 mg and has been stable for 1+ years. Assessment & Plan (04/09/2024 10:12 AM EDT): Patient with Hypertension Here for a f/u BP currently controlled She is on a regimen of: Lisinopril 10-Hctz 12.5 mg po daily ( confirmed with [facility] ) Most recent electrolytes, Bun and Creatinine done on: 04/14/2022 were within normal limits. Will repeat plan: Continue current regimen f/u 4 months patient advised to adhere to a low sodium diet, encouraged about medication compliance, counseled about weight loss. Assessment & Plan (01/15/2024 5:44 PM EDT): Assessment: - BP is at goal of less than 140/90 per JNC8 guidelines Plan/ Recommendations: - Continue with current therapy, refills provided - BMP ordered for repeat Monitoring: No results found for: K BP Readings from Last 2 Encounters: 01/15/24 130/80 01/09/23 132/82 Assessment & Plan (01/09/2023 4:35 PM EDT): - BP is at goal of less than 140/90 per JNC8 guidelines. - BMP normal as of 04/2022 - F/u in 1 year. Assessment & Plan (08/11/2022 3:42 PM EST): Patient with Hypertension Here for a f/u currently controlled She is on a regimen of: Lisinopril 10-Hctz 12.5 mg po daily ( confirmed with [facility] ) Most recent electrolytes, Bun and Creatinine done on: 04/14/2022 were within normal limits. Will repeat plan: Continue current regimen f/u 4 months patient advised to adhere to a low sodium diet, encouraged about medication compliance, counseled about weight loss. Chronic midline low back pain without sciatica 0 08/11/2022 Assessment & Plan (08/11/2022 12:41 PM EST): She is s/p Anterior lumbar interbody fusion L5-S1 with titanium cages and bone morphogenic protein product in 07/2018 by Lopez Manning, she initially reported improvement after the surgery, but that is no longer the case Pt was also evaluated as well by Dr. Cintia Monroy Neurosurgeon who was in agreement with Dr. Manning regarding her diagnosis and the plan She was last seen by Dr Manning 06/28/2019 who has been prescribing Gabapentin and Nabumetone 500 mg po BID, she is no longer taking them Previous imaging: MRI LS spine done 05/22/2017 showed multilevel degenerative changes with a new left paracentral disc protrusion at the L5-S1 which impinges in the traversing Left S1 nerve root after review Dr Lopez Manning recommended a microdiscectomy. On 11/15/2017 She underwent microdiscectomy L5-S1 left for a previously described mid thoracic and low back pain. Unfortunately the pain did not improve. Patient is no longer following with [facility]. They had previously prescribed Cymbalta 120 mg po BID for her but she felt it was not helping. Previously I offered patient a referral to a tertiary care center in [place] to be evaluated by a Neurosurgeon for a second opinion. On 09/04/2019 She was finally seen by Dr. Akbar Osuna at the [facility] Neuro[facility] office at [facility]. He mentions in his notes he asked pt for some of her previous imaging and he was going to f/u with her afterwards. Pt tells me she never followed up. I will need to contact Dr Webber to find out exactly what he needs to see if we can facilitate this so he can complete his work up and give an assessment During my last visit I ordered a CBC, ESR, CRP, ANAND, Uric Acid, Lyme titers All of them came back normal with the exception of the Lyme titers, She had 2 IGM borrelial proteins positives suggestive of acute lyme, although given the fact that her symptoms have been present for longer than a month and there is no recent Hx of a tick bite this is likely to be a false positive. Never the lest pt was very symptomatic in terms of joint pain and headaches so I treated her with a full course of Doxy. pt completed the treatment. Adrenal nodule 08/11/2022 Assessment & Plan (04/09/2024 10:19 AM EDT): this was an incidental finding on MRI of the thoracic spine CT of abdomen and pelvis 06/28/2018 showed: Bilateral adrenal nodules, right greater than left demonstrating absolute washout greater than 60% consistent with adrenal adenomas. 2. Punctate nonobstructive left renal calculi. repeat CT 05/26/2020 showed: IMPRESSION: 1. Bilateral adrenal adenomas. They are stable. 2. A non-obstructive 2 mm radiopaque calculi, upper pole left kidney. No hydronephrosis seen. 3. Bulky enlarged uterus, heterogenous most likely fibroid disease. These findings were seen on the previous CT abdomen and pelvic exam 06/25/2018. No further intervention given stability Mucosal abnormality of duodenum (K31.9). Televisit Previous CT of Abdomen and Pelvis 2017 showed: 3. Subtle low-attenuation along the medial wall second portion of duodenum may represent differential enhancement. No evidence of biliary or pancreatic ductal dilatation. Monitoring is recommended. repeat CT of Abdomen with and without contrast showed: BOWEL LOOPS: The small bowel loops are normal caliber. No further intervention Assessment & Plan (08/11/2022 12:43 PM EST): this was an incidental finding on MRI of the thoracic spine CT of abdomen and pelvis 06/28/2018 showed: Bilateral adrenal nodules, right greater than left demonstrating absolute washout greater than 60% consistent with adrenal adenomas. 2. Punctate nonobstructive left renal calculi. repeat CT 05/26/2020 showed: IMPRESSION: 1. Bilateral adrenal adenomas. They are stable. 2. A non-obstructive 2 mm radiopaque calculi, upper pole left kidney. No hydronephrosis seen. 3. Bulky enlarged uterus, heterogenous most likely fibroid disease. These findings were seen on the previous CT abdomen and pelvic exam 06/25/2018. No further intervention given stability Mucosal abnormality of duodenum (K31.9). Televisit Previous CT of Abdomen and Pelvis 2017 showed: 3. Subtle low-attenuation along the medial wall second portion of duodenum may represent differential enhancement. No evidence of biliary or pancreatic ductal dilatation. Monitoring is recommended. repeat CT of Abdomen with and without contrast showed: BOWEL LOOPS: The small bowel loops are normal caliber. No further intervention Urge incontinence of urine 08/11/2022 Assessment & Plan (08/11/2022 12:45 PM EST): Being evaluated by RADAR SCIENTIST, according to pt she might be referred to Uro gynecology per her RADAR SCIENTIST. will f/u She was seen by Urology for this back in 07/2018 they were awaiting her surgery before they would proceed with urodynamic testing Chronic nonintractable headache 08/11/2022 Assessment & Plan (08/11/2022 12:47 PM EST): Pt with previous c/o moderate to severe headaches mainly occipital. radiation from her neck? Previous work up included a CT of her brain on December that was basically negative. In the past she was seen by a neurologist in the area. TSH was [facility] 08/11/2022 Assessment & Plan (04/09/2024 10:12 AM EDT): Mammogram: April 2023 Normal Colonoscopy: 2015 Dr Orellana Assessment & Plan (01/15/2024 5:43 PM EDT): - Ordered A1c and Lipid Panel Assessment & Plan (01/09/2023 4:37 PM EDT): - Due for Shingrix Vaccine. Scheduled for 7-13 in the pharmacy. 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 Cut down starting in 2020. Maintains 1 Cig/daily. Assessment & Plan (01/15/2024 5:42 PM EDT): Still smoking 1 cig/ daily. Not ready to quit Assessment & Plan (01/09/2023 4:36 PM EDT): Has desire to quit but is not ready to quit at this time and would like to do it on her own. Lichen simplex chronicus 03/20/2012 Assessment & Plan (08/11/2022 12:46 PM EST): Pt seen by the ice cream dipper who diagnosed her with Lichen simplex chronicus and injected her previously described lesion on her toe with Kenalog. Depressive disorder 12/15/2011 Assessment & Plan (04/09/2024 10:22 AM EDT): Pt here for a follow up Stopped taking the Cymbalta regularly Of note previously she was recently admitted to a psychiatric unit voluntarily ( records requested) while she was there she was prescribed Trazodone, Hydroxyzine and Aripiprazole She stopped them because she felt itchy and she also feels that the main reason for her to go in was that she was so depressed that she started to feel paranoid but feels like she was always in control and denies any suicidal ideation Her daughter is very ill and she is very stressed, finds herself crying all the time, feels hopeless, denies any SI complicated due to her chronic pain She has a new psychotherapist, Dianelys Lizama at [facility] she declines to be referred to a psychiatric prescriber states she is not interested in taking medications. Denies suicidal ideation. Assessment & Plan (08/11/2022 12:39 PM EST): reports she is taking the Cymbalta regularly Of note previously she was recently admitted to a psychiatric unit voluntarily ( records requested) while she was there she was prescribed Trazodone, Hydroxyzine and Aripiprazole She stopped them because she felt itchy and she also feels that the main reason for her to go in was that she was so depressed that she started to feel paranoid but feels like she was always in control and denies any suicidal ideation Her daughter is very ill and she is very stressed, finds herself crying all the time, feels hopeless, denies any SI complicated due to her chronic pain She used to follow with a psychotherapist Naina Helton, but last visit she told me she was looking for another therapist for her because they are friends. I referred her to our [facility] program. Plan: Continue Cymbalta to 60 mg po daily Chronic neck pain 07/03/1958 Assessment & Plan (08/11/2022 12:44 PM EST): She has chronic neck pain She has a long hx of chronic neck pain .In the past she has been treated with PT, ibuprofen and Flexeril. She has chronic persistent rt sided neck pain and mid thoracic pain. S/p Bilat Breast reduction surgery. Previous MRI of her thoracic and lumbar spine showed mild degenerative disc disease along L5-S1. She no longer follows with [facility] where she had received facet injections with no good results. Back then their impression was that her pain was myofascial . MRI of her C-Spine on May 10, 2012 showed degenerative changes most pronounced at C4-C5 and C5-C6 as well as mild spinal stenosis. Back then she was under the care of a Neurosurgeon (Dr Howard) who recommended PT and a trial of TENS, he thought if both of these modalities were ineffective she may ultimately require C4-C5 and C5-C6 anterior discectomy and fusion. Most recent MRI of her C-Spine on 09/04/2014 and showed: Cervical cord appears normal, it showed cervical spondylosis specially at C5-C6 has a left paracentral hernia disc causing spinal canal stenosis with mild left sided cord compression, NO cord ischemia. Pt no longer follows with [facility], she was discharged from their practice. Pt was seen for a second opinion at the [facility]. 09/04/2019 Encounters Date Type Department Care Team Description 08/08/2024 Telephone [facility] [address] [place] [phone] Marvin Harden MD Chart Prep 08/05/2024 Patient Outreach [facility] [address] [place] [address] Marvin Harden MD Pre-visit Planning (SDOH Screening negative and Tobacco screening negative) from Last 3 Months Immunizations Name Administration Dates Next Due Hep B, adult 10/08/2009,03/03/2009,12/10/2008 Influenza injectable quadriv alent IIV4 with preservative 03/21/2017 Influenza injectable quadriv alent preservative free 03/22/2022,07/21/2020 Influenza, IIV3, injectable 05/22/2014, 1 Influenza, Split (incl. britany fied surface antigen) 07/02/2013 Influenza, seasonal, injecta ble, preservative free 04/14/2015 PPD Test 07/25/2023 TD (adult), 2 Lf tetanus tox oid, preservative free, adsorbed 12/10/2008 Tdap 04/14/2015,07/02/2013 Zoster, Recombinant 04/11/2023,02/07/2023 Social History Tobacco Use Types Packs/Day Years Used Date Smoking Tobacco: Every Day Cigarettes 0.5 39.1 Started: 1985 Passive Smoke Exposure: Current Smokeless Tobacco: Never Tobacco Cessation:Ready to Q uit: Not Asked; Counseling Given: Not Answered Alcohol Use Standard Drinks/Week Comments Not Currently 0 (1 standard drink = 0.6 oz pur e alcohol) Depression Answer Date Recorded Patient Health Questionnaire-9 Score 15 04/09/2024 Patient Health Questionnaire-9 Score 15 04/09/2024 Last PHQ-9: Questionnaire Data Not on file 1 Housing Stability Answer Date Recorded What is your housing situation today? I have cayla eugene 04/09/[address] you li [...] Orientation Straight 05/02/2022 10 :16 AM EDT Last Filed Vital Signs Vital Sign Reading Time Taken Comments Blood Pressure 134/77 04/09/2024 10:05 AM EDT Pulse 68 04/09/2024 10:05 AM EDT Temperature 36.3 ??C (97.3 ??F) 04/09/2024 1 0:05 AM EDT Respiratory Rate 20 04/09/2024 10:0 5 AM EDT Oxygen Saturation 97% 04/09/2024 10: 05 AM EDT Inhaled Oxygen Concentration - - Weight 69.8 kg (153 lb 12.8 oz) 024 10:05 AM EDT Height 149.9 cm (4' 11 ) 04/09/2024 10: 05 AM EDT Body Mass Index 31.06 04/09/2024 10:05 AM EDT Plan of Treatment Upcoming Encounters Date Type Department Care Team (Late st Contact Info) Description 08/20/2024 3:00 PM EST Office Visit [facility] [address] [place] [phone] Marvin Harden MD [address] [place], [place] [phone] Health Maintenance Due Date Last Done Comments CT Colonography 1971 FIT DNA/Cologuard 1971 FIT 1971 FOBT 1971 HIV Screening 1971 Sigmoidoscopy 1971 Alcohol/Substance Use Screening 1983 Hepatitis C Screening 1989 Hepatitis A Vaccines (1 of 2 - Risk 2-dose series) 1990 Pneumococcal Vaccine: 50+ Years (1 of 2 - PCV) 1990 Pap Smear 1992 Lung Cancer Screening 2021 COVID-19 Vaccine ( season) 2024 12/31/2020, 12/09/2020 Influenza Vaccine (#1) 2024 2, 07/21/2020, 03/21/2017, Additional history exists Depression Monitoring (PHQ-9) 10/08/2024 04/09/2024, 04/09/2024 Depression Screening 04/09/2025 04/09/2024, 04/09/20 24 Tobacco Screening 04/09/2025 04/09/2024 DTaP/Tdap/Td Vaccines (3 - Td or Tdap) 04/14/2025 04/14/2015, 07/02/2013, 12/10/2008 Mammogram 04/28/2025 04/28/2023, 10/2021, 10/10/2018 SDOH Screening 08/05/2025 08/05/2024 Cervical Cancer Screening 10/07/2025 HPV/Cotest 10/07/2025 10/07/2020, 10/07/2020 Colonoscopy 02/04/2026 02/05/2016 Colorectal Cancer Screening 02/04/2026 Lipid Panel 04/14/2027 04/14/2022 RSV Patients and Patients Aged 60 years or older (1 - 1-dose 75+ series) 2046 Hepatitis B Vaccines Completed 10/08/2009, 03/03/2009, 12/10/2008 Zoster Vaccines Completed 04/11/2023, 02/07/2023 HIB Vaccines Aged Out No longer eligi ble based on patient's age to complete this topic HPV Vaccines Aged Out No longer eligi ble based on patient's age to complete this topic IPV Vaccines Aged Out No longer eligi ble based on patient's age to complete this topic Meningococcal Vaccine Aged Out No cady tomas eligible based on patient's age to complete this topic RSV under 20 months Aged Out No longe r eligible based on patient's age to complete this topic Rotavirus Vaccines Aged Out No longer eligible based on patient's age to complete this topic Goals Goal Patient Goal Type Associated Problems Recent Progress Patient-Stated? Author Blood Pressure < 140/90 Blood Pressure 134/77( 024 10:05 AM EDT) No Sid Walters PharmD Quit using tobacco (cigarettes, smokeless, etc) Tobacco Use Tobacco dependence syndrome No Sid Walters PharmD Procedures Procedure Name Priority Date/Time Associated Diagnosis Comments BI MAMMOGRAM SCREENING TOMOSYNTHESIS BILATERAL Routine 04/28/2023 3:30 PM EDT LIPID PANEL, STANDARD Routine 04/14/2022 10:45 AM EDT ZZZ HISTORICAL HPV E6/E7 RFLX [place] 16 18/45 Routine 10/07/2020 1:50 PM EDT HM COLONOSCOPY Routine 02/05/2016 from Last 3 Months or Most Recently Relevant to Health Maintenance Results * BI Mammogram Screening Tomosynthesis Bilateral (04/28/2023 3:30 PM EDT) Anatomical Region Laterality Modality Breast Bilateral Mammography 04/28/2023 3:30 PM EDT Narrative 05/21/2023 11:05 PM EST ? [facility] ? [address] ?[place] [address] ? Mammography Report ? Signed ? Patient: Lizama,Neha ?MR#: [id number] ?? 1 ? : 1970 ?Acct:[id number] ? Age/Sex: 52 / F ?ADM Date: 04/28/23 ? Loc: HO.MAMMO ? Attending Dr: Marvin Hough MD ? Ordering Physician: Marvin Hough MD ?Resu ?? lts: 1Negative ? Date of Service: 04/28/23 ?Follow Up: 1 Year From Orig ?? inal Mammogram ? Procedure(s): MM tomosynthesis screening BI ?? Accession Number(s): [id number] ? cc: Marvin Hough MD ? EXAMINATION: ?? MM SCREENING DIGITAL BREAST TOMOSYNTHESIS, BILATERAL ? CLINICAL INFORMATION: ? Screening. Asymptomatic. ? COMPARISON: ?? Mammography: This study is compared with prior exams dating back to ?? 2017. ? TECHNIQUE: ?? Digital breast tomosynthesis is performed in both the craniocaudal and ?? mediolateral oblique views along with computer-aided detection (CAD). ?? Synthesized 2D images are generated from the tomosynthesis. ? FINDINGS: ?? There are scattered areas of fibroglandular density (ACR BI-RADS breast ?? composition Category b). ? There are no significant masses, abnormal calcifications, or other ?? abnormalities. ? MM/MM tomosynthesis screening BI ?? IMPRESSION: ?? No mammographic evidence of malignancy. ? ASSESSMENT: ? BI-RADS BI-RADS 1 - Negative ? RECOMMENDATION: ?? Routine annual mammography screening. ? 1 year F/U ? This examination should not preclude the clinical evaluation of a ?? suspicious palpable abnormality. ? This patient's information was entered into a reminder system with a ?? target due date for their next mammogram. ? Dictated By: ?Phyllis Peterson MD ? Signed By: ?<Electronically signed by Phyllis Peterson MD in [place]> ? 05/21/23 2301 ? DD/ 1530 ? TD/TT: ? Yolk Spray Drier: ? Procedure Note Lav[place], Image - 05/21/2023 [facility] [address] [place] [address] Mammography Report Signed Patient: Desiree Lizama#: [id number] 1 : 1970Acct:[id number] Age/Sex: 52 / FADM Date: 04/28/23 Loc: ISSA Attending Dr: Marvin Hough MD Ordering Physician: Marvin Hough MDResu lts: 1Negative Date of Service: 04/28/23Follow Up: 1 Year From Orig inal Mammogram Procedure(s): MM tomosynthesis screening BI Accession Number(s): [id number] cc: Marvin Hough MD EXAMINATION: MM SCREENING DIGITAL BREAST TOMOSYNTHESIS, BILATERAL CLINICAL INFORMATION: Screening. Asymptomatic. COMPARISON: Mammography: This study is compared with prior exams dating back to 2017. TECHNIQUE: Digital breast tomosynthesis is performed in both the craniocaudal and mediolateral oblique views along with computer-aided detection (CAD). Synthesized 2D images are generated from the tomosynthesis. FINDINGS: There are scattered areas of fibroglandular density (ACR BI-RADS breast composition Category b). There are no significant masses, abnormal calcifications, or other abnormalities. MM/MM tomosynthesis screening BI IMPRESSION: No mammographic evidence of malignancy. ASSESSMENT: BI-RADS BI-RADS 1 - Negative RECOMMENDATION: Routine annual mammography screening. 1 year F/U This examination should not preclude the clinical evaluation of a suspicious palpable abnormality. This patient's information was entered into a reminder system with a target due date for their next mammogram. Dictated By: Phyllis Peterson MD Signed By: <Electronically signed by Phyllis Peterson MD in OV> 05/21/23 2301 DD/ 1530 TD/TT: Yolk Spray Drier: us Marvin Zapata MD IMG BI PROCEDURES Christopher rambo Result - Final * (ABNORMAL) LIPID PANEL, STANDARD (04/14/2022 10:45 AM EDT) Chol/HDLC Ratio 5.2(H) <5.0 (calc) [facility] Cholesterol, Total 214(H) <200 mg/dL [facility] HDL Cholesterol 41(L) > OR = 50 mg/dL [facility] LDL Cholesterol 140(H) mg/dL (calc) [facility] Comment: Reference range: <100 ?? Desirable range <100 mg/dL for primary prevention; ?? <70 mg/dL for patients with CHD or diabetic patients ?? with > or = 2 CHD risk factors. ?? LDL-C is now calculated using the Martha ?? calculation, which is a validated novel method providing ?? better accuracy than the Friedewald equation in the ?? estimation of LDL-C. ?? Brandon GOMEZ et al. NAVIN. 2013;310(19): 2951-7551 ?? (http://education.[employer].Evergig/faq/ZZE808) Non-HDL Cholesterol 173(H) <130 mg/dL (calc) [facility] Comment: For patients with diabetes plus 1 major ASCVD risk ?? factor, treating to a non-HDL-C goal of <100 mg/dL ?? (LDL-C of <70 mg/dL) is considered a therapeutic ?? option. Triglycerides 194(H) <150 mg/dL [facility] 04/14/2022 10:4 5 AM EDT us Marvin Zapata MD LAB BLOOD ORDERABLES Final Result [facility] * HPV E6/E7 RFLX [place] 16 18/45 (10/07/2020 1:50 PM EDT) Pathologist [facility] HPV 16 RNA TNP [facility] HPV 18/45 RNA [facility]NP [facility] HPV E6 E7 ADD [facility]NP [facility] HPV mRNA E6/E7 rflx Not Detected Not Detected [facility] Comment: Methodology: Camera Assembler-Mediated Amplification This assay detects E6/E7 viral messenger RNA (mRNA) from 14 high-risk HPV types (16,18,31,33,35,39,45,51,52,56,58,59,66,68). The analytical performance characteristics of this assay have been determined by [employer]. The modifications have not been cleared or approved by the FDA. This assay has been validated pursuant to the CLIA regulations and is used for clinical purposes. For additional information, please refer to http://education.Stem/faq/ZRR259w7 (This link if provided for information/ educational purposes only.) THIS TEST WAS PERFORMED AT: [facility] [address] [place] [address] [address] [place], [place] ??[phone] MARIVEL GILBERT MD 10/07/2020 1:50 PM EDT us Sven Colin MD HISTORICAL/NON ORDERABLE LABS Fi nal Result [facility] [address] * Hm Colonoscopy (02/05/2016) Colonoscopy Normal Normal us Historical Provider HEALTH MAINTENANCE Final Result from Last 3 Months or Most Recently Relevant to Health Maintenance Insurance C3 [facility] FULL Care Teams Hardware Installer Relationship Specialty Start Date End Date Marvin Harden MD [address] [place] [phone] PCP - General Internal Medicine 07/31/14
[2024-08-15 11:45] LABS: Estimated Average Glucose 117 mg/dL; Hemoglobin A1C 129.7819 umol/L; Hemoglobin A1c % 5.7 % (<6.0); Total Hemoglobin (HGBA1C) 3366.1111 umol/L
[2024-08-15 11:52] LABS: Alanine Aminotransferase 19 U/L (0-31); Albumin Level 4.1 g/dL (3.5-5.0); Alkaline Phosphatase 72 U/L (39-117); Anion Gap 12 (12-20); Aspartate Amino Transferase 17 U/L (5-31); Bilirubin Total 0.3 mg/dL (0.0-1.0); Blood Urea Nitrogen 14 mg/dL (9-16); Carbon Dioxide 24 mmol/L (22-29); Chloride 108 mmol/L (96-108); Cholesterol 204 mg/dL (<200); Estimated Glomerular Filt Rate > 60; Glucose Fasting 80 mg/dL (60-99); Glucose Random 80 mg/dL (60-115); HDL Cholesterol 47 mg/dL (>40); LDL Cholesterol Calculated 125 mg/dL (<100); Potassium 4.3 mmol/L (3.3-5.1); Sodium 140 mmol/L (135-145); Total Protein 7.3 g/dL (6.5-8.0); Triglycerides 162 mg/dL (<150)
[2024-08-15 12:08] LABS: HIV AB/AG Nonreactive (Nonreactive); HIV Num 1 0.08 S/CO (0.00-0.99); ~HepC Num1 0.34 S/CO (0.00-0.79); ~Hepatitis C Antibody Nonreactive (Nonreactive)
[2024-08-15 12:10] LABS: TSH reflex Free T4 0.83 uIU/mL (0.32-4.0)
== END 2024-08-15 10:30 | disposition home or self-care (01) ==
LOC: HO.HHCL 10:29
PROVIDERS: Visit Provider Internal Medicine
DX: Z00.00 Encounter for general adult medical examination without abnormal findings (principal); I10 Essential (primary) hypertension; F32.A Depression, unspecified
CPT/HCPCS: 36415; 80048; 80053; 80061; 83036; 84443; 86803; 87389

== ENCOUNTER 2024-08-29 13:25 | Outpatient (REF) | payer MEDICAID, SELFPAY ==
--- NOTE | ~2024-08-29 | MM_ITS ---
EXAMINATION: MM DIAGNOSTIC DIGITAL BREAST TOMOSYNTHESIS, BILATERAL Limited left breast ultrasound. CLINICAL INFORMATION: Left breast palpable lump upper outer quadrant. COMPARISON: Mammography: Comparison is made with relevant prior exams. TECHNIQUE: Digital breast mammography with tomosynthesis is performed in both the craniocaudal and mediolateral oblique views along with computer-aided detection (CAD). Limited left breast ultrasound. FINDINGS: There are scattered areas of fibroglandular density (ACR BI-RADS breast composition Category b). Status post bilateral reduction mammoplasty changes. Left: BB marker in the upper outer left breast posterior depth at the site of palpable lump without underlying abnormality. Targeted color Doppler ultrasound scanning in the area the patient's palpable lump in the upper outer quadrant and low axilla demonstrates normal axillary and breast tissue and normal-appearing axillary lymph nodes. Is no sonographic abnormality. Right: Post reduction mammoplasty changes are stable. No suspicious masses calcifications or other abnormal findings. Results are provided to the patient at time of visit by the technologist. MM/MM tomosynthesis diagnostic BI IMPRESSION: Right : Benign. Left: No mammographic or sonographic abnormality to account for the patient's palpable left breast lump. Recommend clinical evaluation and follow-up. ASSESSMENT: BI-RADS BI-RADS 2 - Benign Findings RECOMMENDATION: 1 year F/U This patient's information was entered into a reminder system with a target due date for their next mammogram. Electronically signed by: Chel Maldonado DO 08/29/2024 02:36 PM [facility]
--- OUTSIDE RECORDS SUMMARY | 2024-08-29 16:02 | XMS_ITS | Encounter Summary ---
Author Organization [employer] Address [address] [facility] 7t [place] [address] Care Team Providers Care Community Health Nurse Supervisor Name Role Phone Marvin Harden MD Primary Care Provide r Reason for Visit * Reason Onset Date Comments Chart Prep 08/08/2024 Encounter Details Date Type Department Care Team ([facility] st Contact Info) Description 08/08/2024 Telephone [facility] [address] [place], [place] [phone] Marvin Harden MD [address] [place], [place] [phone] Chart Prep Social History Tobacco Use Types Packs/Day Years Used Date Smoking Tobacco: Every Day Cigarettes 0.5 39.2 Started: 1985 Passive Smoke Exposure: Current Smokeless [...] Care Team (Late st Contact Info) Description 11/28/2024 11:30 AM EDT Office Visit [facility] [address] [place] [address] Marvin Harden MD [address] [place] [address] documented as of this encounter Goals Goal [...] documented as of this encounter Care Teams Community Health Nurse Supervisor Relationship Specialty Start Date End Date Marivn Harden MD [address] [place] [phone] PCP - General Internal Medicine 07/31/14 documented as of this encounter
--- OUTSIDE RECORDS SUMMARY | 2024-08-29 16:02 | XMS_ITS | Encounter Summary ---
Author Organization [employer] Address [address] [facility] 7t [place] [address] Care Team Providers Care Block Making Machine Operator Name Role Phone Marvin Harden MD Primary Care Provide r Encounter Details Date Type Department Care Team ([facility] st Contact Info) Description 08/22/[address] [facility] [address] [place], [place] [phone] Marvin Harden MD [address] [place], [place] [phone] Social History Tobacco Use Types Packs/Day Years [...] AM EDT documented as of this encounter Plan of Treatment Upcoming Encounters Date Type Department Care Team (Late st Contact Info) Description 11/28/2024 11:30 [address] EDT Office [address] [facility] [address] [place] [address] Marvin Harden MD [address] [place] [address] documented as of this encounter Goals Goal Patient Goal Type Associated Problems Recent Progress Patient-Stated? Author Blood Pressure < 140/90 Blood Pressure 134/77( 024 10:05 AM EDT) No Yen Waltersl, PharmD Quit using tobacco (cigarettes, smokeless, etc) Tobacco Use Tobacco dependence syndrome No WaltersChapo polkril, PharmD documented as of this encounter Visit Diagnoses Not on filedocumented in this encounter Additional Health Concerns Assessment Noted Time PHQ-9 Depression Total Score: 15 024 10:06 AM EDT documented as of this encounter Care Teams Block Making Machine Operator Relationship Specialty Start Date End Date Marvin Harden MD [address] [place] [address] PCP - General Internal Medicine 07/31/14 documented as of this encounter
--- OUTSIDE RECORDS SUMMARY | 2024-08-29 16:02 | XMS_ITS | Clinical Summary ---
Author Organization [facility] Address [address] [place] [address] Care Team Providers Care Orchestra Leader Name Role Phone Unavailable Primary Care Provider [...] daily apply a thin ribbon on toothbrush. Hawkins thoroughly once daily for two minutes, preferably [...] Examination 01/20/2023 01/18/2022 Dental Prophy 01/20/2023 01/18/2022 [id number] ( season) 2024 Imm-Influenza (#1) 2024 Alcohol [...] 3 Months or Most Recently Relevant to [employer] Maintenance Insurance [facility] [place]ENT[place]
--- OUTSIDE RECORDS SUMMARY | 2024-08-29 16:02 | XMS_ITS | Encounter Summary ---
Author Organization [employer] Address [address] [facility] 7t [place] [address] Care Team Providers Care Strap Cutting Machine Operator Name Role Phone Marvin Harden MD Primary Care Provide r Reason for Visit * Reason Comments Pre-visit Planning SDOH Screening negat kory and Tobacco screening negative Encounter Details Date Type Department Care Team ([facility] st Contact Info) Description 08/05/2024 Patient Outreach [facility] [address] [place], [place] [phone] Marvin Harden MD [address] [place], [place] [phone] Pre-visit Planning (SDOH Screening negative and Tobacco [...] Patient haven't been able to contact the [facility] due to keep coming in and out of the hospital with daughter. Spoke with Doris from [facility] send it to [facility] at [address] [place] [address] . Patient aware. Patient advised to bring to appointment a photo id and insurance card. Appropriate screenings completed in anticipation of appointment. Tobacco screening positive. Will need counseling. documented in this encounter Plan of Treatment Upcoming Encounters Date Type Department Care Team ([facility] st Contact Info) Description 11/28/2024 11:30 AM EDT Office Visit [facility] [address] [place] [address] Marvin Harden MD [address] [place] [address] documented as of this encounter Goals Goal [...] documented as of this encounter Care Teams Strap Cutting Machine Operator Relationship Specialty Start Date End Date Marvin Harden MD [address] [place] [address] PCP - General Internal Medicine 07/31/14 documented as of this encounter
--- OUTSIDE RECORDS SUMMARY | 2024-08-29 16:02 | XMS_ITS | Encounter Summary ---
Author Organization [employer] Address [address] [facility] 7t [place] [address] Care Team Providers Care Machinist Wood Name Role Phone Marvin Harden MD Primary Care Provide r Reason for Visit * Reason Onset Date Comments Durable Medical Equipment 08/22/2024 brace Encounter Details Date Type Department Care Team ([facility] st Contact Info) Description 08/22/2024 Telephone [facility] [address] [place], [place] [phone] Marvin Harden MD [address] [place], [place] [phone] Durable Medical Equipment (brace) Social History Tobacco Use Types Packs/Day Years [...] encounter Miscellaneous Notes * Telephone Encounter - Richelle Bradley - 08/22/2024 11:00 AM EST RX for Brace signed and faxed to [facility] . Confirmation received and sent to scan. If patient calls to check status on above, please advise them to contact [facility] at [phone]. documented in this encounter Plan of Treatment Upcoming Encounters Date Type Department Care Team (Late st Contact Info) Description 11/28/2024 11:30 AM EDT Office Visit [facility] [address] [place] [address] Marvin Harden MD [address] [place] [address] documented as of this encounter Goals Goal [...] documented as of this encounter Care Teams Machinist Wood Relationship Specialty Start Date End Date Marvin Harden MD [address] [place] [address] PCP - General Internal Medicine 07/31/14 documented as of this encounter
--- OUTSIDE RECORDS SUMMARY | 2024-08-29 16:02 | XMS_ITS | Clinical Summary ---
Author Organization [employer] Address [address] [facility] 7t [place] [address] Care Team Providers Care Linking Machine Operator Name Role Phone Marvin Harden [...] for a f/u Under the care of Scanning Supervisor Dr. Sven Colin , last seen 02/05/2024, [...] reason she was referred to Sven Colin ONLINE TRADER . He repeated her Pelvis US that [...] for a f/u Under the care of Scanning Supervisor Dr. Sven Colin , last seen 03/10/2021, [...] reason she was referred to Sven Colin ONLINE TRADER . He repeated her Pelvis US that [...] referral to a tertiary care center in [place] to be evaluated by a Neurosurgeon for a second opinion. On 09/04/2019 She was finally seen by Dr. Akbar Osuna at the [facility] Neurosurgery office at [facility]. He mentions in his notes he asked [...] (08/11/2022 12:45 PM EST): Being evaluated by ONLINE TRADER, according to pt she might be referred to Uro gynecology per her ONLINE TRADER. will f/u She was seen by Urology [...] a neurologist in the area. TSH was [facility] 08/11/2022 Assessment & Plan (04/09/2024 10:12 AM [...] 12:46 PM EST): Pt seen by the inlayer who diagnosed her with Lichen simplex chronicus [...] has a new psychotherapist, Dianelys Lizama at [facility] she declines to be referred to a [...] are friends. I referred her to our [facility] program. Plan: Continue Cymbalta to 60 mg [...] seen for a second opinion at the [facility]. 09/04/2019 Encounters Date Type Department Care Team Description 08/22/2024 Telephone [facility] [address] [place] [phone] Marvin Harden MD Durable Medical Equipment (brace) 08/22/2024 Telephone [facility] [address] [place] [phone] Marvin Harden MD 08/08/[address] [address] Marvin Harden MD Chart Prep 08/05/2024 Patient Outreach [address] [phone] Marvin Harden MD Pre-visit Planning (SDOH Screening [...] Description 11/28/2024 11:30 AM EDT Office Visit [facility] [address] [place], [place] [phone] Marvin Harden MD [address] [place] [address] Health Maintenance Due Date Last Done Comments CT Colonography 1971 FIT DNA/Cologuard 1971 FIT 1971 FOBT 1971 Sigmoidoscopy 1971 Alcohol/Substance Use Screening 1983 Hepatitis A Vaccines (1 of 2 - Risk 2-dose series) 1990 Pneumococcal Vaccine: 50+ Years (1 of 2 - PCV) 1990 Pap Smear 1992 Lung Cancer Screening 2021 COVID-19 Vaccine ( season) 2024 12/31/2020, 12/09/2020 Influenza Vaccine (#1) 2024 , 07/21/2020, 03/21/2017, Additional history exists Depression Monitoring (PHQ-9) 10/08/2024 04/09/2024, 04/09/2024 Depression Screening 04/09/2025 04/09/2024, 04/09/20 24 Tobacco Screening 04/09/2025 04/09/2024 DTaP/Tdap/Td Vaccines (3 - Td or Tdap) 04/14/2025 04/14/2015, 07/02/2013, 12/10/2008 Mammogram 04/28/2025 04/28/2023, 1010/2021, 10/10/2018 SDOH Screening 08/05/2025 08/05/2024 Diabetes: Hemoglobin A1C 08/15/2025 08/15/2024 Cervical Cancer Screening 10/07/2025 HPV/Cotest 10/07/2025 10/07/2020, 10/07/2020 Colonoscopy 02/04/2026 02/05/2016 Colorectal Cancer Screening 02/04/2026 Lipid Panel 08/15/2029 08/15/2024, 04/14/2022 RSV Patients and Patients Aged 60 years or older (1 - 1-dose 75+ series) 2046 Hepatitis B Vaccines Completed 10/08/2009, 03/03/2009, 12/10/2008 Zoster Vaccines Completed 04/11/2023, 02/07/2023 HIV Screening Completed 08/15/2024 Hepatitis C Screening Completed 08/15/2024 HIB Vaccines Aged Out No longer eligi [...] Tobacco dependence syndrome No Sid Walters, PharmD Procedures Procedure Name Priority Date/Time Associated Diagnosis Comments BASIC METABOLIC PANEL, FASTING Routine 08/15/2024 10:32 AM EST HEMOGLOBIN A1C Routine 08/15/2024 10:32 AM EST HIV 1/2 ANTIGEN/ANTIBODY, FOURTH GENERATION W/RFL Routine 08/15/2024 10:32 AM EST Preventative health care HEPATITIS C AB W/REFL TO HCV RNA, QN, PCR Routine 08/15/2024 10:32 AM EST Preventative health care TSH W/REFLEX TO FT4 Routine 08/15/2024 1 0:32 AM EST Depressive disorder COMPREHENSIVE METABOLIC PANEL Routine 08/15/2024 10:32 AM EST Essential hypertension LIPID PANEL, STANDARD Routine 08/15/2024 10:32 AM EST Essential hypertension BI MAMMOGRAM SCREENING TOMOSYNTHESIS BILATERAL Routine 04/28/2023 3:30 PM EDT ZZZ HISTORICAL HPV E6/E7 RFLX [place] 16 18/45 Routine 10/07/2020 1:50 PM EDT HM COLONOSCOPY Routine 02/05/2016 from Last 3 Months or Most Recently Relevant to Health Maintenance Results * Basic Metabolic Panel, Fasting (08/15/2024 10:32 AM EST) Glucose Fasting 80 60 - 99 mg/dL [facility] 08/15/2024 10:3 2 AM EST 08/15/2024 11:15 AM EST us Marvin Zapata MD LAB BLOOD ORDERABLES Final Result [facility] [address] [place] [phone] * TSH with Reflex to Free T4 (08/15/2024 10:32 AM EST) TSH reflex Free T4 0.83 0.32 - 4.0 uIU/mL [facility] Blood Venous blood specimen / Unknown 08/15/2024 10:32 AM EST 08/15/2024 11:15 AM EST Marvin Zapata MD LAB BLOOD ORDERABLES Final Result Performing Organization Address [facility]/ZIP Co de Phone Number [facility] [address] [place] [phone] [phone] * Hepatitis C Antibody with Reflex to HCV, RNA, Quantitative, Real-Time PCR (08/15/2024 10:32 AM EST) Hepatitis C Antibody Nonreactive Nonreactive [facility] Comment:Antibodies to HCV no t detected; does not exclude early acuteHCV infection. Blood Venous blood specimen / Unknown 08/15/2024 10:32 AM EST 08/15/2024 11:15 AM EST Marvin Zapata MD LAB BLOOD ORDERABLES Final Result Performing Organization Address City/[facility]/ZIP Co de Phone Number [facility] [address] [place] [phone] * HIV-1/2 Antigen and Antibodies, Fourth Generation, with Reflexes (08/15/2024 10:32 AM EST) HIV AB/AG Nonreactive Nonreactive [facility] Comment:HIV-1 p24 Ag and/or HIV-1/HIV-2 Ab not detected.A test result that is nonreactive does not exclude thepossibility of exposure to or infection with HIV-1 and/orHIV-2. Nonreactive results in this assay for individualswith prior exposure to HIV-1 and/or HIV-2 may be due toantigen and antibody levels that are below the limit ofdetection of this assay.The [employer] HIV Ag/Ab Combo assay result andsupplemental assay results should be interpreted inconjunction with the patient's clinical presentation,history and other laboratory results. If the results areinconsistent with clinical evidence, additional testing issuggested to confirm the result. Blood Venous blood specimen / Unknown 08/15/2024 10:32 AM EST 08/15/2024 11:15 AM EST Marvin Zapata MD LAB BLOOD ORDERABLES Final Result Performing Organization Address [facility] Co de Phone Number [facility] [address] [place] [phone] * Hemoglobin A1c (08/15/2024 10:32 AM EST) Hemoglobin A1c 5.7 <6.0 % [facility] Comment:Hemoglobin A1C Refer ence Range Adults: 4.8 - 6.0 % Non diabetic: < 6.0 % Goal: < 7.0 %Additional Action Suggested: > 8.0 %Note: Hemoglobin A1c results are invalid for patients with abnormal amounts of HbF. Blood transfusions may impact the HbA1c concentration in the patient sample. Estimated Average Glucose 117 mg/dL [facility] Comment:eAG = Estimated ave rage glucose which is %A1C expressed asaverage glucose, using the formula of the I2T-JvaighoCtultfk Glucose study (ADAG), Diabetes Care, Vol.31,#8,Jan. 2007 08/15/2024 10:3 2 AM EST 08/15/2024 11:15 AM EST Marvin Zapata MD LAB BLOOD ORDERABLES Final Result Performing Organization Address [facility] Co de Phone Number [facility] [address] [place] [phone] * (ABNORMAL) Lipid Panel, Standard (08/15/2024 10:32 AM EST) Triglycerides 162(H) <150 mg/dL [facility] Comment:Desirable Triglyceri de: less than 150 mg/dLBorderline High Triglyceride 150-199 mg/dLHigh Triglyceride: 200-499 mg/dLVery High Triglyceride: greater than or equal to 5OO mg/dL Cholesterol 204(H) <200 mg/dL [facility] Comment:Desirable Cholestero l: less than 200 mg/dLBorderline High Cholesterol: 200-239 mg/dLHigh Cholesterol: greater than 239 mg/dL LDL Cholesterol Calculated 125(H) <100 mg/dL [facility] Comment:Desirable LDL: less than 100 mg/dLNear Optimal/Above Optimal LDL: 110- 129 mg/dLBorderline High LDL: 130-159 mg/dLHigh LDL: 160-189 mg/dLVery High LDL: greater than or equal to 190 mg/dL HDL Cholesterol 47 >40 mg/dL [facility] Comment:Desirable HDL: great er than 40 mg/dL Note: This HDL assay may give artificially low results in patients with liver disease. Blood Venous blood specimen / Unknown 08/15/2024 10:32 AM EST 08/15/2024 11:15 AM EST us Marvin Zapata MD LAB BLOOD ORDERABLES Final Result [facility] [address] [place] [phone] * Comprehensive Metabolic Panel (08/15/2024 10:32 AM EST) Sodium 140 135 - 145 mmol/L [facility] Potassium 4.3 3.3 - 5.1 mmol/L [facility] Chloride 108 96 - 108 mmol/L [facility] Carbon Dioxide 24 22 - 29 mmol/L [facility] Anion Gap 12 12 - 20 [facility] Urea Nitrogen (BUN) 14 9 - 16 mg/dL [facility] Creatinine, Serum 0.72 0.5 - 1.4 mg/dL [facility] Estimated Glomerular Filt Rate >60 [facility] Comment:Chronic Kidney Disea se: Estimated GFR < 60 mL/min/1.75w2Kzpnxi Kidney Disease: Estimated GFR < 15 mL/min/1.73m2 Glucose 80 60 - 115 mg/dL [facility] Calcium 9.0 8.4 - 10.2 mg/dL [facility] Bilirubin, Total 0.3 0.0 - 1.0 mg/dL [facility] Aspartate Amino Transferase 17 5 - 31 U/L [facility] Alanine Aminotransferase 19 0 - 31 U/L [facility] Total Protein 7.3 6.5 - 8.0 g/dL [facility] Albumin Level 4.1 3.5 - 5.0 g/dL [facility] Alkaline Phosphatase 72 39 - 117 U/L [facility] Blood Venous blood specimen / Unknown 08/15/2024 10:32 AM EST 08/15/2024 11:15 AM EST us Marvin Zapata MD LAB BLOOD ORDERABLES Final Result [facility] [address] [facility] [place] [address] [phone] * BI Mammogram Screening Tomosynthesis Bilateral (04/28/2023 3:30 PM EDT) Anatomical Region Laterality Modality Breast Bilateral Mammography 04/28/2023 3:30 PM EDT Narrative 05/21/2023 11:05 PM EST ? [facility] [place] ? [address] ?[place] [address] ? Mammography Report ? Signed ? Patient: Lizama,Neha ?MR#: [id number] ?? 1 ? : 1970 ?Acct:[id number] ? Age/Sex: 52 / F ?ADM Date: 10/27/23 ? Loc: HO.MAMMO ? Attending Dr: Marvin Hough MD ? Ordering Physician: Marvin Hough MD ?Resu ?? lts: 1Negative ? Date of Service: 04/28/23 ?Follow Up: 1 Year From Orig ?? inal Mammogram ? Procedure(s): MM tomosynthesis screening BI ?? Accession Number(s): [id number] ? cc: Marvin Hough MD ? EXAMINATION: ?? MM SCREENING DIGITAL BREAST TOMOSYNTHESIS, BILATERAL ? CLINICAL INFORMATION: ? Screening. Asymptomatic. ? COMPARISON: ?? Mammography: This study is compared with prior exams dating back to ?? 2016. ? TECHNIQUE: ?? Digital breast tomosynthesis is [...] by Phyllis Peterson MD in OV> ? 05/21/231 ? DD/ 29 ? TD/TT: ? Museum Informatics Specialist: ? Procedure Note Lav[place], Image - 05/21/2023 [facility] [address] [place] [address] Dr. [place], [place] [address] Mammography Report Signed Patient: Desiree Lizama#: [id number] 1 : 1970Acct:[id number] Age/Sex: 52 / FADM Date: 04/28/23 Loc: HO.MAMMO Attending Dr: Marvin Hough MD Ordering Physician: Marvin Hough MDResu lts: 1Negative Date of Service: 04/28/23Follow Up: 1 Year From Orig inal Mammogram Procedure(s): MM tomosynthesis screening BI Accession Number(s): [id number] cc: Marvin Hough MD EXAMINATION: MM SCREENING [...] in OV> 05/21/23 2301 DD/ 1530 TD/TT: Museum Informatics Specialist: us Marvin Zapata MD IMG BI PROCEDURES Christopher rambo Result - Final * HPV E6/E7 RFLX [place] 16 18/45 (10/07/2020 1:50 PM EDT) HPV 16 RNA TNP [facility] HPV 18/45 RNA [facility] HPV E6 E7 ADD [facility]NP [facility] HPV mRNA E6/E7 rflx Not Detected Not Detected [facility] Comment: Methodology: University Administrative Assistant-Mediated Amplification This assay detects E6/E7 viral messenger RNA (mRNA) from 14 high-risk HPV types (16,18,31,33,35,39,45,51,52,56,58,59,66,68). The analytical performance characteristics of this assay have been determined by [employer]. The modifications have not been cleared or approved by the FDA. This assay has been validated pursuant to the CLIA regulations and is used for clinical purposes. For additional information, please refer to http://education.[employer]/faq/FPT417v2 (This link if provided for information/ educational purposes only.) THIS TEST WAS PERFORMED AT: [employer] [address] [place] [address],[address] [place], [place] ??[phone] MARIVEL GILBERT MD 10/07/2020 1:50 PM EDT Sven Colin MD HISTORICAL/NON ORDERABLE LABS Fi nal Result [facility] [address] * Colonoscopy (02/05/2016) Pathologist [facility] Colonoscopy Normal Normal Historical Provider HEALTH MAINTENANCE Final Result from Last 3 Months or Most Recently Relevant to Health Maintenance [place] [address] [place] [address] C3 [employer]SN FULL Care Teams Linking Machine Operator Relationship Specialty Start Date End Date Marvin Harden MD [address] [place] [phone] PCP - General Internal Medicine 07/31/14
== END 2024-08-29 13:26 | disposition home or self-care (01) ==
LOC: HO.MAMMO 13:25
PROVIDERS: PCP Internal Medicine; Visit Provider Obstetrics & Gynecology
DX: N63.21 Unspecified lump in the left breast, upper outer quadrant (principal)
CPT/HCPCS: 76642; 77062; 77066

== ENCOUNTER → 2024-08-29 13:30 | Outpatient (BNV) | payer MEDICAID, SELFPAY | PROVIDERS: PCP Internal Medicine; Visit Provider Internal Medicine | DX: N63.21 Unspecified lump in the left breast, upper outer quadrant (principal) | CPT/HCPCS: 76642; 77062; 77066 ==

== ENCOUNTER 2025-05-07 13:34 | Outpatient (REF) | payer MEDICAID, SELFPAY ==
[2025-05-07 16:29] LABS: Bacterial Vaginosis PCR NEGATIVE (Negative); Candida Group PCR NOT DETECTED (Not Detect); Candida glab krusei PCR NOT DETECTED (Not Detect); Trichomonas vaginalis PCR NOT DETECTED (Not Detect)
--- OUTSIDE RECORDS SUMMARY | 2025-05-07 17:49 | XMS_ITS | Clinical Summary ---
Author Organization [facility] Address [address] [place] [address] Care Team Providers Care Warehouse Shift Supervisor Name Role Phone Unavailable Primary Care Provider [...] daily apply a thin ribbon on toothbrush. [place] thoroughly once daily for two minutes, preferably at bedtime. After use expectorate. For best results, do not eat, drink, or rinse for 30 minutes. 51 g 2 Active ibuprofen 600 mg tabletIndication s:Post-op pain Take 1 Tablet by mouth 3 (three) times daily as needed for pain for up to 3 days. 9 Tablet 5 05/03/20 25 Active Problems No known active problems Encounters Date Type Department Care Team Description 04/30/2025 2:20 PM EDT Office Visit [facility] [address] [place] [address] [phone] Chiquis Fermin DDS 04/29/2025 2:20 PM EDT Office Visit [facility] [address] [place] [phone] Chiquis Fermin DDS 04/16/2025 3:20 PM EDT Office Visit [facility] [place] [phone] Abril Lizama from Last 3 Months Social History Tobacco Use Types Packs/Day Years [...] Sign Reading Time Taken Comments Blood Pressure 104/76 04/30/2025 2:36 PM EDT Pulse 73 04/30/2025 2:36 PM EDT Temperature - - Respiratory Rate - - Oxygen Saturation - - Inhaled Oxygen Concentration - - Weight - - Height - - Body Mass Index - - Plan of Treatment Upcoming Encounters Date Type Department Care Team (Late st Contact Info) Description 05/16/2025 1:40 PM EST Office Visit [facility] [address] [place] [phone] Chiquis Fermin DDS [facility] [place] [address] 05/21/2025 9:40 AM EST Office Visit [facility] [address] [place] [address] [phone] Chiquis Fermin DDS [facility] [place] [address] 07/16/2025 3:00 PM EST Office Visit [facility] [address] [place] [phone] Abril Lizama [address] [place] [address] Health Maintenance Due Date Last Done Comments Anxiety Screening 1971 HPV Screening (self-collect) 1971 HPV Screening 1971 Pap + HPV 1971 Tobacco Cessation Counseling (#1) 1971 Imm-Pneumococcal 50+ (1 of 2 - PCV) 1990 Cervical Cancer Screening 1992 Pap Smear 1992 Breast Cancer Screening (Mammogram) 2011 CT Colonography 2016 Colonoscopy 2016 Colorectal Cancer Screening 2016 FIT/gFOBT 2016 Fecal DNA 2016 Flexible Sigmoidoscopy 2016 Alcohol and Drug Screen 07/03/2024 Depression Annual Screen 07/03/2024 [id number] ( season) 2025 Imm-Influenza (#1) 2025 03/22/2022, 0 07/21/2020, 03/21/2017, Additional history exists Imm-DTaP/Tdap/Td (3 - Td or Tdap) 04/14/2025 04/14/2015, 07/02/2013, 12/10/2008 Diabetes Screening 08/15/2025 08/15/2024, 08/15/2024 Dental BW 04/18/2026 04/16/2025, 01/18/2022 Dental Examination 04/18/2026 04/16/2025, 01/18/2022 Dental Perio Charting 04/18/2026 04/16/2025 Dental Prophy 04/18/2026 04/16/2025, 01/18/2022 Hypertension Screening (#1) 04/30/2026 Lipid Screening 08/15/2029 08/15/2024 Dental FMX/Pano 04/18/2030 04/16/2025 Imm-Hepatitis B Completed 10/08/2009, 09/0 07/2008, 12/10/2008 Imm-Zoster, Recombinant Completed 04/11/2023, 02/07 HIV Screening Completed 08/15/2024, 08/15/2024 Hepatitis C Screening Completed 08/15/2024 Cervical Ablation/Cold-Knife Conization Discontinued Cervical Cryotherapy Discontinued Colposcopy Discontinued Excision/Leep Discontinued HPV Genotyping Discontinued Vaginal Pap Discontinued Vulvoscopy Discontinued Procedures Procedure Name Priority Date/Time Associated Diagnosis Comments CASE PRESENTATION SUBS DTL & EXTENSIVE TX PLN Routine 04/30/2025 2:20 PM EDT Post-op pain 2 EXTRACTION ERUPTED TOOTH OR EXPOSED ROOT Routine 04/30/2025 2:20 PM EDT Post-op pain CASE PRESENTATION SUBS DTL & EXTENSIVE TX PLN Routine 04/29/2025 2:20 PM EDT Abfraction 28 B(V) RESIN-BASED COMPOSITE - ONE SURFACE POSTERIOR Routine 04/29/2025 2:20 PM EDT Abfraction 29 B(V) RESIN-BASED COMPOSITE - ONE SURFACE POSTERIOR Routine 04/29/2025 2:20 PM EDT Abfraction PERIODIC ORAL EVALUATION ESTABLISHED PATIENT Routine 04/16/2025 3:20 PM EDT Encounter for dental examination and cleaning with abnormal findings Stage 3 grade C generalized periodontitis per AAP/EFP 2017 classification DENTAL CASE MANAGEMENT - MOTIVATIONAL INTV Routine 04/16/2025 3:20 PM EDT Encounter for dental examination and cleaning with abnormal findings Stage 3 grade C generalized periodontitis per AAP/EFP 2017 classification PROPHYLAXIS - ADULT Routine 04/16/2025 3 :20 PM EDT Encounter for dental examination and cleaning with abnormal findings Stage 3 grade C generalized periodontitis per AAP/EFP 2017 classification COMP PERIODONTAL EVALUATION - NEW/EST PATIENT Routine 04/16/2025 3:20 PM EDT Encounter for dental examination and cleaning with abnormal findings Stage 3 grade C generalized periodontitis per AAP/EFP 2017 classification INTRAORAL - COMP SERIES OF RADIOGRAPHIC IMAGES Routine 04/16/2025 3:20 PM EDT Encounter for dental examination and cleaning with abnormal findings Stage 3 grade C generalized periodontitis per AAP/EFP 2017 classification CARIES RISK ASSESSMENT & DOC FINDING HIGH RISK Routine 04/16/2025 3:20 PM EDT Encounter for dental examination and cleaning with abnormal findings Stage 3 grade C generalized periodontitis per AAP/EFP 2017 classification NUTRITIONAL COUNSELING CONTROL OF DENTAL DISEASE Routine 04/16/2025 3:20 PM EDT Encounter for dental examination and cleaning with abnormal findings Stage 3 grade C generalized periodontitis per AAP/EFP 2017 classification ORAL HYGIENE INSTRUCTIONS Routine 04/16/2025 3:20 PM EDT Encounter for dental examination and cleaning with abnormal findings Stage 3 grade C generalized periodontitis per AAP/EFP 2017 classification ORAL CANCER SCREENING Routine 04/16/2025 3:20 PM EDT Encounter for dental examination and cleaning with abnormal findings Stage 3 grade C generalized periodontitis per AAP/EFP 2017 classification CASE PRESENTATION SUBS DTL & EXTENSIVE TX PLN Routine 04/16/2025 3:20 PM EDT Encounter for dental examination and cleaning with abnormal findings from Last 3 Months [facility] DENT[facility] MEDICAID DENTAL
== END 2025-05-07 13:35 | disposition home or self-care (01) ==
LOC: HO.LNP 13:34
PROVIDERS: PCP Internal Medicine; Visit Provider Obstetrics & Gynecology
DX: Z01.419 Encounter for gynecological examination (general) (routine) without abnormal findings (principal); N93.9 Abnormal uterine and vaginal bleeding, unspecified; D25.9 Leiomyoma of uterus, unspecified; Z12.11 Encounter for screening for malignant neoplasm of colon; Z12.31 Encounter for screening mammogram for malignant neoplasm of breast
CPT/HCPCS: 81515; 87626; 88175; 99212; 99396

== ENCOUNTER 2025-05-07 13:34 | Outpatient (AMB) | payer MEDICAID, SELFPAY ==
--- NOTE | 2025-05-07 14:11 | MHC.OFFVIS ---
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 Quality Control Projectionist Required: No Allergies acetaminophen (From Percocet) Adverse Reaction (Mild, Verified 05/07/25 14:18) Itching oxycodone (From Percocet) Adverse Reaction (Mild, Verified 05/07/25 14:18) Itching Medication List - Last Reconciled 05/07/25 by Jessy Bone LPN lisinopril-hydrochlorothiazide 10-12.5 mg 1 tab PO DAILY tranexamic acid 1,300 mg (2 x 650 mg) PO TID 5 days Is last menstrual period known: Yes Last menstrual period: 04/15/25 Post menopausal: No Patient : No Do you need a note to return to daycare/school/sports/work: No HPI Comments Details: Presenting for annual exam. Complaining of irregular menstrual cycle over the last few months Last Pap/HPV was negative in 10/21 Last Mammogram was BI-RADS 2 in 08/27 Last Colonoscopy was around 10 years ago Last ultrasound in 11/23 showed multiple uterine myomas PFSH Medical History HTN (hypertension) H/O nephrolithotomy with removal of calculi Back problem Kidney stones Surgical History History of appendectomy Hx of abdominoplasty History of breast reconstruction History of bilateral tubal ligation Family History Mother HTN (hypertension) Father Emphysema lung Paternal Aunt Breast cancer in female Social History Household Members Other:: daughter Housing: House Alcohol intake: never Patient Tobacco Use Status: Current everyday Tobacco user Cigarettes Per Day: 1 Patient : No Current occupational status: unemployed Sexual orientation: Straight/Heterosexual Gender identity: Female Female Reproductive History Menstrual Age of Menarche: 13 Duration of menses: 6-7 days Date of last menstrual period: 04/15/25 control method: permanent sterilization Total pregnancies: 3 Number of Living Children: 2 Date of last pap smear: 10/08/20 Date of Mammogram: 08/29/24 Review of Systems Const All systems reviewed & are unremarkable except as noted in HPI and below Card Reports as per HPI Resp Reports as per HPI GI Reports as per HPI and Reports no additional complaints Reports as per HPI Physical Exam Vital Signs: Last Vital Signs BP 124/88 05/07/25 14:13 BMI result Body Mass Index 27.9 Const General: cooperative, healthy appearing and comfortable Chest Chest palpation & inspection: normal inspection of the chest and normal palpation of entire chest wall Breast/axilla inspection: normal inspection of the breasts and normal inspection of the axillae Breast/axilla palpation: normal palpation of the breasts, normal palpation of the axillae and no axillary lymphadenopathy Resp Effort & Inspection: normal respiratory effort Auscultation: clear to auscultation bilaterally Percussion: percussion normal Cardio Palpation: normal PMI Rate: regular rate Rhythm: regular rhythm Heart sounds: no murmurs and no rubs Peripheral pulses: Peripheral pulses 2+ throughout GI Inspection: Yes normal to inspection Palpation (GI): Soft to palpation, nontender, no guarding, not rigid and No hepatosplenomegaly present Percussion: Yes normal to percussion Auscultation: normal bowel sounds Rectal Exam - Female: deferred General: Yes bladder normal to palpation External Female Exam: No lesion Speculum Exam - Vagina: normal appearance of the vagina, normal palpation, normal vaginal discharge and not erythematous Speculum Exam - Cervix: normal appearance of the cervix and normal palpation Bimanual exam- vagina & uterus: normal bimanual exam, normal palpation, uterine size normal, bladder normal to palpation, consistency normal and normal palpation Bimanual Exam- Adnexa, other: normal adnexae, no masses and no tenderness Assessment & Plan Assessment & Plan (1) Well woman exam: Code(s): Z01.419 - Encounter for gynecological examination (general) (routine) without abnormal findings Category: Medical Plan: Co testing done. Counseled the patient about the recommended dietary allowance of 1200 mg of Calcium & 600 IU of vitamin D. Mammogram ordered. The patient was referred to GI for screening colonoscopy . The patient was instructed to perform monthly self-breast exams and schedule annual exam in a year. All questions answered and the patient verbalized understanding. (2) Uterine myoma: Code(s): D25.9 - Leiomyoma of uterus, unspecified Category: Medical Plan: Ultrasound ordered, instructions given the patient to schedule an ultrasound follow-up appointment within 2 weeks. All questions answered, the patient verbalized understanding (3) Abnormal uterine bleeding (AUB): Code(s): N93.9 - Abnormal uterine and vaginal bleeding, unspecified Category: Medical Plan: Co testing done, GC and chlamydia taken CBC, TSH, HCG, and pelvic ultrasound ordered. Discussed with the patient the different causes of abnormal bleeding including thyroid disorders, uterine and ovarian pathology, endometrial hyperplasia, carcinoma and other potential causes. Discussed with the patient the work up including CBC (to r/o anemia), TSH, pelvic Ultrasound, endometrial biopsy to r/o endometrial pathology. All questions answered and the patient verbalized understanding. Instructed the patient to schedule an appointment for an endometrial biopsy in 2 weeks. Orders: Orders Complete Blood Count no Diff Today N93.9 - Abnormal uterine and vaginal bleeding, unspecified TSH reflex Free T4 Today N93.9 - Abnormal uterine and vaginal bleeding, unspecified Follicle Stimulating Hormone Today N93.9 - Abnormal uterine and vaginal bleeding, unspecified HCG Quantitative Today N93.9 - Abnormal uterine and vaginal bleeding, unspecified MM screening mammo BI Today Z12.31 - Encounter for screening mammogram for malignant neoplasm of breast Lutenizing Hormone Today N93.9 - Abnormal uterine and vaginal bleeding, unspecified US pelvic and transvaginal Today N93.9 - Abnormal uterine and vaginal bleeding, unspecified Referrals Gastroenterology Referral Z12.11 - Encounter for screening for malignant neoplasm of colon Coding Level of Care Code Est Pt Level 3 (50868) Est Pt Prev Care 40-64y(87080) Diagnoses Well woman exam Z01.419 Uterine myoma D25.9 Abnormal uterine bleeding (AUB) N93.9
[2025-05-07 14:13] VITALS: BP 124/88; BMI 27.9
--- OUTSIDE RECORDS SUMMARY | 2025-05-07 16:28 | XMS_ITS | Clinical Summary ---
Author Organization [employer] Address [address] [facility] [address] [place] [address] Care Team Providers Care Bulb Tester Name Role Phone Marvin Harden MD [...] SPRAYS IN EACH NOSTRIL DAILY 07/08/2023 Active meloxicam (Mobic) 15 MG tabletIndicatio ns:Wrist pain, acute, left Take 1 tablet (15 mg) by mouth Once per day. 30 tablet 3 11/28/2024 Active lisinopril-hydr oCHLOROthiazide 10-12.5 MG tablet TAKE 1 TABLET BY MOUTH DAILY 90 tablet 3 03/18/2025 Active Active Problems Problem Noted Date Diagnosed Date Class 1 obesity due to exces s calories with serious comorbidity and body mass index (BMI) of 31.0 to 31.9 in adult 04/09/2024 Assessment & Plan (11/28/2024 11:51 AM EDT): Patient has been counseled and educated about diet and exercise. Personal goal of weight loss discussedPatient has comorbidity of: HTN Assessment & Plan (04/09/2024 10:14 AM EDT): Patient has been counseled and educated about diet and exercise. Personal goal of weight loss discussedPatient has comorbidity of: HTN Carpal tunnel syndrome of left wrist 04/09/2024 Assessment & Plan (11/28/2024 11:54 AM EDT): Patient with c/o new onset left wrist pain intensity 4/10 not associated with any trauma. On exam there was tenderness, but no redness, no swelling, no increase in temperature. Equivocal phallen maneuver Etiology ? OA VS CTS Plain films left wrist: === 04/09/24 === XR WRIST 3+ VIEWS LEFT - Impression - Normal left wrist. Plan: continue NSAIDS, NCS, showed: mild CTS Recommended Wrist splint at night Follow up if no improvement. Might need OT Assessment & Plan (04/09/2024 10:35 AM EDT): [...] for a f/u Under the care of Garage Attendant Dr. Sven Colin , last seen 02/05/2024, [...] mass. 3. Prominent gonadal veins on CT 2017, not well visualized on current study. If there is concern for pelvic congestion syndrome, then interventional radiology consult would be recommended. for this reason she was referred to Sven Colin ONLINE PRODUCER . He repeated her Pelvis US that [...] for a f/u Under the care of Garage Attendant Dr. Sven Colin , last seen 03/10/2021, [...] she was referred to Sven Colin ONLINE PRODUCER . He repeated her Pelvis US that [...] stable for 1+ years. Assessment & Plan (11/28/2024 11:51 AM EDT): Patient with Hypertension Here for a f/u BP currently controlled She is on a regimen of: Lisinopril 10-Hctz 12.5 mg po daily ( confirmed with [facility] ) Most recent electrolytes, Bun and Creatinine done on: Lab Results Component Value Date NA 140 08/15/2024 K 4.3 08/15/2024 CL 108 08/15/2024 BUN 14 08/15/2024 BUN 16 04/14/2022 CREATININE 0.72 08/15/2024 were within normal limits. plan: Continue current regimen f/u 4 months patient advised to adhere to a low sodium diet, encouraged about medication compliance, counseled about weight loss. Assessment & Plan (04/09/2024 10:12 AM EDT): [...] referral to a tertiary care center in [place] to be evaluated by a Neurosurgeon for a second opinion. On 09/04/2019 She was finally seen by Dr. Akbar Osuna at [place] [facility]. He mentions in his notes he [...] 12:45 PM EST): Being evaluated by ONLINE PRODUCER, according to pt she might be referred to Uro gynecology per her ONLINE PRODUCER. will f/u She was seen by Urology [...] a neurologist in the area. TSH was wnl [facility] 08/11/2022 Assessment & Plan (11/28/2024 12:05 PM EDT): Mammogram: April 2023 Normal,Pt tells me she had a repeat. Records requested Colonoscopy: 2015 Dr Orellana Assessment & Plan (04/09/2024 10:12 AM EDT): [...] 12:46 PM EST): Pt seen by the finishing trimmer who diagnosed her with Lichen simplex chronicus [...] has a new psychotherapist, Dianelys Lizama at [facility] she declines to be referred to [...] are friends. I referred her to our [facility] program. Plan: Continue Cymbalta to 60 [...] seen for a second opinion at the [facility]. 09/04/2019 Encounters Date Type Department Care Team Description 04/03/[address] [facility] [address] [place] [address] Marvin Harden MD Chronic midline low back pain without sciatica (Primary Dx) 04/01/[address] [facility] [address] [place] [address] Marvin Harden MD Referral 03/17/[address] [facility] [address] [place] [address] Marvin Harden MD May recall 03/13/[address] [facility] [address] [place] [address] Carlee Mac, RN NTTS 03/08/[address] [facility] [address] [place] [address] Sid Walters, PharmD from Last 3 Months Immunizations Immunization Administration Dates Next Due Hep B, adult [...] Types Packs/Day Years Used Date Smoking Tobacco: Some Days Cigarettes 0.5 39.8 Started: 1985 Passive Smoke Exposure: Current Smokeless [...] Sign Reading Time Taken Comments Blood Pressure 130/72 11/28/2024 11:47 AM EDT Pulse 77 11/28/2024 11:47 AM EDT Temperature 36.4 C (97.5 F) 11/28/2024 11:47 AM EDT Respiratory Rate 18 11/28/2024 11:47 AM EDT Oxygen Saturation 98% 11/28/2024 11:47 AM EDT Inhaled Oxygen Concentration - - Weight 64 kg (141 lb 3.2 oz) 11/28/2024 11:47 AM EDT Height 149.9 cm (4' 11 ) 11/28/2024 11:47 AM EDT Body Mass Index 28.52 11/28/2024 11:47 AM EDT Plan of Treatment Upcoming Encounters Date Type Department Care Team (Late st Contact Info) Description 05/27/2025 1:15 PM EST Office Visit [facility] [address] [place] [address] Marvin Harden MD [address] [place] [address] Health Maintenance Due Date Last Done Comments CT Colonography 1971 FIT DNA/Cologuard 1971 FIT 1971 FOBT 1971 Sigmoidoscopy 1971 Disability Screening 1971 Alcohol/Substance Use Screening 1983 Pap Smear 1992 Lung Cancer Screening 2021 Depression Monitoring 10/08/2024 04/09/2024, 024 COVID-19 Vaccine ( season) 2025 12/31/2020, 12/09/2020 Influenza Vaccine (#1) 2025 , 07/21/2020, 03/21/2017, Additional history exists DTaP/Tdap/Td Vaccines (3 - Td or Tdap) 04/14/2025 04/14/2015, 07/02/2013, 12/10/2008 Mammogram 04/28/2025 04/28/2023, 10/2021, 10/10/2018 SDOH Screening 08/05/2025 08/05/2024 Diabetes: Hemoglobin A1C 08/15/2025 08/15/2024 Cervical Cancer Screening 10/07/2025 HPV/Cotest 10/07/2025 10/07/2020, 10/07/2020 Pneumococcal Vaccine: 50+ Years (1 of 2 - PCV) 11/28/2025 Postponed from 1990 (Patient Refused) Tobacco Screening 11/28/2025 11/28/2024 Colonoscopy 02/04/2026 02/05/2016 Colorectal Cancer Screening 02/04/2026 [...] on patient's age to complete this topic Hepatitis A Vaccines Aged Out No long er eligible based on patient's age to complete this topic IPV Vaccines Aged Out No longer eligi ble based on patient's age to complete this topic Meningococcal B Vaccine Aged Out No l onger eligible based on patient's age to complete [...] Author Blood Pressure < 140/90 Blood Pressure 130/72( 025 11:47 AM EDT) No Sid Walters, [place] Quit using tobacco (cigarettes, smokeless, etc) Tobacco Use Tobacco dependence syndrome No Sid Walters PharmD Procedures Procedure Name Priority Date/Time Associated Diagnosis Comments HEPATITIS C AB W/REFL TO HCV RNA, QN, PCR Routine 08/15/2024 10:32 AM EST Preventative health care HIV 1/2 ANTIGEN/ANTIBODY, FOURTH GENERATION W/RFL Routine 08/15/2024 10:32 AM EST Preventative health care HEMOGLOBIN A1C Routine 08/15/2024 10:32 AM EST LIPID PANEL, STANDARD Routine 08/15/2024 10:32 AM EST Essential hypertension BI MAMMOGRAM SCREENING TOMOSYNTHESIS BILATERAL Routine 04/28/2023 3:30 PM EDT ZZZ HISTORICAL HPV E6/E7 RFLX [place] 16 18/45 Routine 10/07/2020 1:50 PM EDT HM COLONOSCOPY Routine 02/05/2016 from Last 3 Months or Most Recently Relevant to Health Maintenance Results * Hepatitis C Antibody with Reflex to HCV, RNA, Quantitative, Real-Time PCR (08/15/2024 10:32 AM EST) Pathologist [facility] Hepatitis C Antibody Nonreactive Nonreactive [facility] Comment:Antibodies to HCV no t detected; does not exclude early acuteHCV infection. Blood Venous blood specimen / Unknown 08/15/2024 10:32 AM EST 08/15/2024 11:15 AM EST us Marvin Zapata MD LAB BLOOD ORDERABLES Final Result [facility] [address] [place] [phone] * HIV-1/2 Antigen and Antibodies, Fourth Generation, with Reflexes (08/15/2024 10:32 AM EST) Pathologist [facility] HIV AB/AG Nonreactive Nonreactive [facility] Comment:HIV-1 p24 Ag and/or HIV-1/HIV-2 Ab not detected.A test result that is nonreactive does not exclude thepossibility of exposure to or infection with HIV-1 and/orHIV-2. Nonreactive results in this assay for individualswith prior exposure to HIV-1 and/or HIV-2 may be due toantigen and antibody levels that are below the limit ofdetection of this assay.The [employer] HIV Ag/Ab Combo assay result andsupplemental assay results should be interpreted inconjunction with the patient's clinical presentation,history and other laboratory results. If the results areinconsistent with clinical evidence, additional testing issuggested to confirm the result. Blood Venous blood specimen / Unknown 08/15/2024 10:32 AM EST 08/15/2024 11:15 AM EST Marvin Zapata MD LAB BLOOD ORDERABLES Final Result Performing Organization Address City/[facility]/ZIP Co de Phone Number [facility] [address] [place] [phone] * Hemoglobin A1c (08/15/2024 10:32 AM EST) Hemoglobin A1c 5.7 <6.0 % [facility] Comment:Hemoglobin A1C Refer ence Range Adults: 4.8 - 6.0 % Non diabetic: < 6.0 % Goal: < 7.0 %Additional Action Suggested: > 8.0 %Note: Hemoglobin A1c results are invalid for patients with abnormal amounts of HbF. Blood transfusions may impact the HbA1c concentration in the patient sample. Estimated Average Glucose 117 mg/dL [facility] Comment:eAG = Estimated ave rage glucose which is %A1C expressed asaverage glucose, using the formula of the H1D-KubvtwlAiczuiw Glucose study (ADAG), Diabetes Care, Vol.31,#8,Jan. 2007 08/15/2024 10:3 2 AM EST 08/15/2024 11:15 AM EST Marvin Zapata MD LAB BLOOD ORDERABLES Final Result Performing Organization Address City/[facility]/ZIP Co de Phone Number [facility] [address] [place] [phone] * (ABNORMAL) Lipid Panel, Standard (08/15/2024 10:32 AM EST) Triglycerides 162(H) <150 mg/dL [facility] Comment:Desirable Triglyceri de: less than 150 mg/dLBorderline High Triglyceride 150-199 mg/dLHigh Triglyceride: 200-499 mg/dLVery High Triglyceride: greater than or equal to 5OO mg/dL Cholesterol 204(H) <200 mg/dL [facility] Comment:Desirable Cholestero l: less than 200 mg/dLBorderline High Cholesterol: 200-239 mg/dLHigh Cholesterol: greater than 239 mg/dL LDL Cholesterol Calculated 125(H) <100 mg/dL [facility] Comment:Desirable LDL: less than 100 mg/dLNear Optimal/Above Optimal LDL: 110- 129 mg/dLBorderline High LDL: 130-159 mg/dLHigh LDL: 160-189 mg/dLVery High LDL: greater than or equal to 190 mg/dL HDL Cholesterol 47 >40 mg/dL [facility] Comment:Desirable HDL: great er than 40 mg/dL Note: This HDL assay may give artificially low results in patients with liver disease. Blood Venous blood specimen / Unknown 08/15/2024 10:32 AM EST 08/15/2024 11:15 AM EST us Marvin Zapata MD LAB BLOOD ORDERABLES Final Result [facility] [address] [place] [phone] * BI Mammogram Screening Tomosynthesis Bilateral (04/28/2023 3:30 PM EDT) Anatomical Region Laterality Modality Breast Bilateral Mammography 04/28/2023 3:30 PM EDT Narrative 05/21/2023 11:05 PM EST [facility] [address] [place] [address] [place] [address] Mammography Report Signed Patient: Neha Lizama MR#: [id number] 1 : 1970 Acct:[id number] Age/Sex: 52 / F ADM Date: 04/28/23 Loc: [facility] Attending Dr: Marvin Hough MD Ordering Physician: Marvin Hough MD Resu lts: 1Negative Date of Service: 04/28/23 Follow Up: 1 Year From Orig inal Mammogram Procedure(s): MM tomosynthesis screening BI Accession Number(s): [id number] cc: Marvin Hough MD EXAMINATION: MM SCREENING [...] in OV> 05/21/23 2301 DD/ 1530 TD/TT: Bell Tier: Procedure Note Donotuseinterpreter, Image - 05/21/2023 [facility] [address] [place], [place] [address] Mammography Report Signed Patient: Desiree Lizama#: [id number] 1 : 1970Acct:[id number] Age/Sex: 52 / FADM Date: 04/28/23 Loc: ISSA Attending Dr: Marvin Hough MD Ordering Physician: Marvin Hough MDResu lts: 1Negative Date of Service: 04/28/23Follow Up: 1 Year From Orig inal Mammogram Procedure(s): MM tomosynthesis screening BI Accession Number(s): [id number] cc: Marvin Hough MD EXAMINATION: MM SCREENING [...] in OV> 05/21/23 2301 DD/ 1530 TD/TT: Bell Tier: us Marvin Zapata MD IMG BI PROCEDURES Christopher rambo Result - Final * HPV E6/E7 RFLX [place] 16 18/45 (10/07/2020 1:50 PM EDT) HPV 16 RNA TNP [facility] HPV 18/45 RNA [facility]NP [facility] HPV E6 E7 ADD TNP [facility] HPV mRNA E6/E7 rflx Not Detected Not Detected [facility] Comment: Methodology: Certified Phlebotomist-Mediated Amplification This assay detects E6/E7 viral messenger RNA (mRNA) from 14 high-risk HPV types (16,18,31,33,35,39,45,51,52,56,58,59,66,68). The analytical performance characteristics of this assay have been determined by [facility]. The modifications have not been cleared or approved by the FDA. This assay has been validated pursuant to the CLIA regulations and is used for clinical purposes. For additional information, please refer to http://education.[employer]/faq/CAZ260k9 (This link if provided for information/ educational purposes only.) THIS TEST WAS PERFORMED AT: [facility] [address] [place] [address] [address] [phone] MARIVEL GILBERT MD 10/07/2020 1:5 0 PM EDT Sven Colin MD HISTORICAL/NON ORDERABLE LABS Fi nal Result [facility] [address] * Colonoscopy (02/05/2016) Colonoscopy Normal Normal Historical Provider HEALTH MAINTENANCE Final Result from Last 3 Months or Most Recently Relevant to Health Maintenance Insurance [employer] Care Teams Bulb Tester Relationship Specialty Start Date End Date Marvin Harden MD [address] [place] [phone] PCP - General Internal Medicine 07/31/14
--- OUTSIDE RECORDS SUMMARY | 2025-05-07 16:28 | XMS_ITS | Clinical Summary ---
Author Organization [facility] Address [address] [address] Phone Care Team Providers Care Cardiovascular Invasive Specialist Name Role Phone Marvin Hough MD Primary Care Provide r Social History Tobacco Use Types Packs/Day Years Used Date Smoking Tobacco: Never Assessed Education Answer Date Recorded Are you interested in more education? Not on isela e 10/28/2022 Are you concerned about learning? Not on file 10/28/2022 No 10/28/2022 No 10/28/2022 Digital Access Answer Date Recorded No 11/26/2022 No 11/26/2022 No 11/26/2022 Reliable internet access at home? Not on file 11/26/2022 Device with a working camera? Not on file Comments Unknown Sex and Gender Information Value Date Recorded Sex Assigned at Not on file Legal Sex Female 12:51 PM EST Gender Identity Not on file Sexual Orientation Not on file Plan of Treatment Health Maintenance Due Date Last Done Comments LIPID PANEL 1971 DEPRESSION SCREENING 1983 SMOKING Hx and SMOKELESS TOBACCO SCREENING 1984 HEPATITIS C SCREENING 1989 HIV ONE-TIME SCREENING (18-65 YEARS) 1989 PAP SMEAR 1992 COLOGUARD 2016 COLONOSCOPY 2016 COLORECTAL CANCER SCREENING 2016 FIT TEST 2016 FOBT 2016 SIGMOIDOSCOPY 2016 VIRTUAL COLONOSCOPY 2016 PNEUMOCOCCAL VACCINES (50+ years) (1 of 1 - PCV) 2021 ZOSTER VACCINES (1 of 2) 2021 INFLUENZA VACCINE (#1) 2025 , 03/21/2017, 04/14/2015, Additional history exists COVID-19 VACCINE ( season) 2025 12/31/2020, 12/09/2020 Adult Td,Tdap Booster 04/14/2025 04/14/2015 , 07/02/2013, 12/10/2008 MAMMOGRAM 04/28/2025 04/28/2023 RSV VACCINE (1 - 1-dose 75+ series) 2046 HEPATITIS A VACCINES Aged Out No long er eligible based on patient's age to complete this topic HIB VACCINES Aged Out No longer eligi ble based on patient's age to complete this topic MENINGOCOCCAL VACCINES (ACWY) Aged Out No longer eligible based on patient's age to complete this topic MENINGOCOCCAL VACCINES (B) Aged Out N o longer eligible based on patient's age to complete this topic Medical Devices Not on file Insurance C3 ACO C3 ACO C3 ACO C3 ACO C3 ACO C3 ACO C3 ACO C3 ACO [facility] C3 ACO Care Teams Cardiovascular Invasive Specialist Relationship Specialty Start Date End Date Marvin Hough MD [address] [place] [address] [address] [place] [phone] josé PCP - General Internal Medicine 06/06/19 Additional Source Comments The information contained in this document represents components of the legal health record. It is not the complete legal health record.[facility]
== END 2025-05-07 14:44 | disposition home or self-care (01) ==
LOC: HO.HWS 13:34
PROVIDERS: PCP Internal Medicine; Visit Provider Obstetrics & Gynecology
DX: Z01.419 Encounter for gynecological examination (general) (routine) without abnormal findings (principal); D25.9 Leiomyoma of uterus, unspecified; N93.9 Abnormal uterine and vaginal bleeding, unspecified
CPT/HCPCS: 99213; 99396; 99459

== ENCOUNTER 2025-05-08 09:45 | Outpatient (REF) | payer MEDICAID, SELFPAY ==
[2025-05-08 10:40] LABS: Hematocrit 44.4 % (37.0-47.0); Hemoglobin 14.0 g/dl (12.0-16.0); Mean Corpuscular HGB Conc 31.5 g/dl (31.0-35.0); Mean Corpuscular Hemoglobin 27.8 pg (27.0-33.0); Mean Corpuscular Volume 88.1 fL (80.0-98.0); NRBC Abs Auto 0.050 X10*3/uL (0.0-0.012); NRBC Pct Auto 0.8 /100WBC (0.0-0.2); Platelet Count 352 X10*3/uL (160-400); Red Blood Count 5.04 X10*6/uL (4.20-5.50); White Blood Count 6.4 X10*3/uL (4.8-10.8)
--- OUTSIDE RECORDS SUMMARY | 2025-05-08 11:01 | XMS_ITS | Clinical Summary ---
Author Organization [facility] Address [address] [place] [address] Care Team Providers Care Oncology Account Specialist Name Role Phone Unavailable Primary Care Provider [...] daily apply a thin ribbon on toothbrush. [place] thoroughly once daily for two minutes, preferably [...] Description 04/30/2025 2:20 PM EDT Office Visit [facility] [address] [place] [address] [phone] Chiquis Fermin DDS 04/29/2025 2:20 PM EDT Office Visit [facility] [address] [place] [phone] Chiquis Fermin DDS 04/16/2025 3:20 PM EDT Office Visit [facility] [place] [phone] Abril Lizama from Last 3 Months Social [...] Description 05/16/2025 1:40 PM EST Office Visit [facility] [address] [place] [phone] Chiquis Fermin DDS [facility] [place] [address] 05/21/2025 9:40 AM EST Office Visit [facility] [address] [place] [address] [phone] Chiquis Fermin DDS [facility] [place] [address] 07/16/2025 3:00 PM EST Office Visit [facility] [address] [place] [phone] Abril Lizama [address] [place] [address] Health Maintenance Due Date Last Done Comments [...] Drug Screen 07/03/2024 Depression Annual Screen 07/03/2024 [id number] ( season) 2025 Imm-Influenza (#1) 2025 03/22/2022, [...] with abnormal findings from Last 3 Months [facility] MEDICAID DENTAL
--- OUTSIDE RECORDS SUMMARY | 2025-05-08 11:01 | XMS_ITS | Clinical Summary ---
Author Organization [facility] [employer] Address [address] [facility] [address] [place] [address] Care Team Providers Care Installer Helper Name Role Phone Marvin Harden MD Primary [...] for a f/u Under the care of Recruiting Team Lead Dr. Sven oClin , last seen 02/05/2024, Last U/S 12/11/2023 [...] reason she was referred to Sven Colin TOOL ROOM ATTENDANT . He repeated her Pelvis US that [...] for a f/u Under the care of Recruiting Team Lead Dr. Sven Colin , last seen 03/10/2021, [...] reason she was referred to Sven Colin TOOL ROOM ATTENDANT . He repeated her Pelvis US that [...] referral to a tertiary care center in [place] to be evaluated by a Neurosurgeon for a second opinion. On 09/04/2019 She was finally seen by Dr. Akbar Osuna at the [facility] Neurosurgery office at [facility]. He mentions in his notes he [...] (08/11/2022 12:45 PM EST): Being evaluated by TOOL ROOM ATTENDANT, according to pt she might be referred to Uro gynecology per her TOOL ROOM ATTENDANT. will f/u She was seen by Urology [...] neurologist in the area. TSH was wnl [facility] 08/11/2022 Assessment & Plan (11/28/2024 12:05 [...] 12:46 PM EST): Pt seen by the sounding device operator who diagnosed her with Lichen simplex chronicus [...] are friends. I referred her to our [facility] program. Plan: Continue Cymbalta to [...] seen for a second opinion at the [facility] Spine Center. 09/04/2019 Encounters Date Type Department Care Team Description 04/03/2025 Orders Only [facility] [address] [place] [address] Marvin Harden MD Chronic midline low back pain without sciatica (Primary Dx) 04/01/2025 Telephone [facility] [address] [place] [address] Marvin Harden MD Referral 03/17/2025 Telephone [facility] [address] [place] [address] Marvin Harden MD May recall 03/13/2025 Telephone [facility] [address] [place] [address] Carlee Mac, RN NTTS 03/08/2025 Refill [facility] [address] [place] [address] Sid Walters, PharmD from Last 3 Months [...] Description 05/27/2025 1:15 PM EST Office Visit [facility] [address] [place] [address] Marvin Harden MD [address] [place] [address] Health Maintenance Due Date Last Done Comments [...] 130/72( 025 11:47 AM EDT) No Sid Walters PharmD Quit using tobacco (cigarettes, smokeless, etc) Tobacco Use Tobacco dependence syndrome No Sid Walters PharmD Procedures Procedure Name Priority Date/Time Associated Diagnosis Comments CBC Routine 05/08/2025 9:54 AM EST Chronic midline low back pain without sciatica HEPATITIS C AB W/REFL TO HCV RNA, [...] Recently Relevant to Health Maintenance Results * (ABNORMAL) CBC (05/08/2025 9:54 AM EST) White Blood Count 6.4 4.8 - 10.8 X10*3/uL [facility] Red Blood Count 5.04 4.20 - 5.50 X10*6/uL [facility] Hemoglobin 14.0 12.0 - 16.0 g/dl [facility] Hematocrit 44.4 37.0 - 47.0 % [facility] Mean Corpuscular Volume 88.1 80.0 - 98.0 fL [facility] Mean Corpuscular Hemoglobin 27.8 27.0 - 33.0 pg [facility] Mean Corpuscular HGB Conc 31.5 31.0 - 35.0 g/dl [facility] Red Cell Distribution Width 14.7 11.0 - 16.0 % [facility] Platelet Count 352 160 - 400 X10*3/uL [facility] Mean Platelet Volume 10.6 9.4 - 12.3 fL [facility] NRBC Pct Auto 0.8(H) 0.0 - 0.2 /100WBC [facility] NRBC Abs Auto 0.050(H) 0.0 - 0.012 X10*3/uL [facility] 05/08/2025 9:54 AM EST 05/08/2025 10:00 AM EST us Generic External Data Provider LAB BLOOD ORDERAB LES Final Result Performing Organization Address [facility]/ZIP Co de Phone Number [facility] [address] [place] [phone] * Hepatitis C Antibody with Reflex to HCV, RNA, Quantitative, Real-Time PCR (08/15/2024 10:32 AM EST) Hepatitis C Antibody Nonreactive Nonreactive [facility] Comment:Antibodies to HCV no t detected; does not exclude early acuteHCV infection. Blood Venous blood specimen / Unknown 08/15/2024 10:32 AM EST 08/15/2024 11:15 AM EST Marvin Zapata MD LAB BLOOD ORDERABLES Final Result Performing Organization Address [facility] Co de Phone Number [facility] [address] [place] [phone] * HIV-1/2 Antigen and Antibodies, Fourth Generation, with Reflexes (08/15/2024 10:32 AM EST) HIV AB/AG Nonreactive Nonreactive [facility] Comment:HIV-1 p24 Ag and/or HIV-1/HIV-2 Ab not detected.A test result that is nonreactive does not exclude thepossibility of exposure to or infection with HIV-1 and/orHIV-2. Nonreactive results in this assay for individualswith prior exposure to HIV-1 and/or HIV-2 may be due toantigen and antibody levels that are below the limit ofdetection of this assay.The Immy HIV Ag/Ab Combo assay result andsupplemental assay results should be interpreted inconjunction with the patient's clinical presentation,history and other laboratory results. If the results areinconsistent with clinical evidence, additional testing issuggested to confirm the result. Blood Venous blood specimen / Unknown 08/15/2024 10:32 AM EST 08/15/2024 11:15 AM EST Marvin Zapata MD LAB BLOOD ORDERABLES Final Result Performing Organization Address City/[facility]/ZIP Co de Phone Number [facility] [address] [place] [phone] * Hemoglobin A1c (08/15/2024 10:32 AM EST) Hemoglobin A1c 5.7 <6.0 % [facility] Comment:Hemoglobin A1C Refer ence Range Adults: 4.8 - 6.0 % Non diabetic: < 6.0 % Goal: < 7.0 %Additional Action Suggested: > 8.0 %Note: Hemoglobin A1c results are invalid for patients with abnormal amounts of HbF. Blood transfusions may impact the HbA1c concentration in the patient sample. Estimated Average Glucose 117 mg/dL [facility] Comment:eAG = Estimated ave rage glucose which is %A1C expressed asaverage glucose, using the formula of the Q7W-NmzhkxmVktfweh Glucose study (ADAG), Diabetes Care, Vol.31,#8,Jan. 2007 08/15/2024 10:3 2 AM EST 08/15/2024 11:15 AM EST Marvin Zapata MD LAB BLOOD ORDERABLES Final Result Performing Organization Address City/[facility]/ZIP Co de Phone Number [facility] [address] [place] [phone] * (ABNORMAL) Lipid Panel, Standard (08/15/2024 10:32 AM EST) Triglycerides 162(H) <150 mg/dL [facility] Comment:Desirable Triglyceri de: less than 150 mg/dLBorderline High Triglyceride 150-199 mg/dLHigh Triglyceride: 200-499 mg/dLVery High Triglyceride: greater than or equal to 5OO mg/dL Cholesterol 204(H) <200 mg/dL [facility] Comment:Desirable Cholestero l: less than 200 mg/dLBorderline High Cholesterol: 200-239 mg/dLHigh Cholesterol: greater than 239 mg/dL LDL Cholesterol Calculated 125(H) <100 mg/dL [facility] Comment:Desirable LDL: less than 100 mg/dLNear Optimal/Above Optimal LDL: 110- 129 mg/dLBorderline High LDL: 130-159 mg/dLHigh LDL: 160-189 mg/dLVery High LDL: greater than or equal to 190 mg/dL HDL Cholesterol 47 >40 mg/dL [facility] Comment:Desirable HDL: great er than 40 mg/dL Note: This HDL assay may give artificially low results in patients with liver disease. Blood Venous blood specimen / Unknown 08/15/2024 10:32 AM EST 08/15/2024 11:15 AM EST Marvin Zapata MD LAB BLOOD ORDERABLES Final Result [facility] [address] [place] [phone] * BI Mammogram Screening Tomosynthesis Bilateral (04/28/2023 3:30 PM EDT) Anatomical Region Laterality Modality Breast Bilateral Mammography 04/28/2023 3:30 PM EDT Narrative 05/21/2023 11:05 PM EST [facility] [address] [place] [address] Mammography Report Signed Patient: Neha Lizama MR#: [id number] 1 : 1970 Acct:[id number] Age/Sex: 52 / F ADM Date: 04/28/23 Loc: HO.MAMMO Attending Dr: Marvin Hough MD Ordering Physician: Marvin Hough MD Resu lts: 1Negative Date of Service: 04/28/23 Follow Up: 1 Year From Orig inal Mammogram Procedure(s): MM tomosynthesis screening BI Accession Number(s): [id number] cc: Marvin Hough MD EXAMINATION: MM SCREENING [...] in OV> 05/21/23 2301 DD/ 1530 TD/TT: Template Reproduction Technician: Procedure Note Donotuseinterpreter, Image - 05/21/2023 Od[facility] [address] [place], [place] [address] Mammography Report Signed Patient: Desiree Lizama#: [id number] 1 : 1970Acct:[id number] Age/Sex: 52 / FADM Date: 04/28/23 Loc: HO.MAMMO Attending Dr: Marvin Hough MD Ordering Physician: Marvin Hough MDResu lts: 1Negative Date of Service: 04/28/23Follow Up: 1 Year From Orig inal Mammogram Procedure(s): MM tomosynthesis screening BI Accession Number(s): [id number] cc: Marvin Hough MD EXAMINATION: MM SCREENING [...] in OV> 05/21/23 2301 DD/ 1530 TD/TT: Template Reproduction Technician: Marvin Zapata MD IMG BI PROCEDURES Christopher rambo Result - Final * HPV E6/E7 RFLX [place] 16 18/45 (10/07/2020 1:50 PM EDT) HPV 16 RNA [facility]NP [facility] HPV 18/45 RNA [facility] HPV E6 E7 ADD [facility]NP [facility] HPV mRNA E6/E7 rflx Not Detected Not Detected [facility] Comment: Methodology: Cra Officer-Mediated Amplification This assay detects E6/E7 viral messenger RNA (mRNA) from 14 high-risk HPV types (16,18,31,33,35,39,45,51,52,56,58,59,66,68). The analytical performance characteristics of this assay have been determined by [employer]. The modifications have not been cleared or approved by the FDA. This assay has been validated pursuant to the CLIA regulations and is used for clinical purposes. For additional information, please refer to http://education.Tarari.Blade[employer]ic/faq/XHV276e4 (This link if provided for information/ educational purposes only.) THIS TEST WAS PERFORMED AT: [facility] [address] [place] [address],[place] [phone] MARIVEL GILBERT MD 10/07/2020 1:50 PM EDT Sven Colin MD HISTORICAL/NON ORDERABLE LABS Fi nal Result [facility] [address] * Colonoscopy (02/05/2016) [facility] Signature Colonoscopy Normal Normal Historical Provider HEALTH MAINTENANCE Final Result from Last 3 Months or Most Recently Relevant to Health Maintenance Insurance C3 HSN FULL Care Teams Installer Helper Relationship Specialty Start Date End Date Marvin Harden MD [address] [place] [address] PCP - General Internal Medicine 07/31/14
--- OUTSIDE RECORDS SUMMARY | 2025-05-08 11:01 | XMS_ITS | Clinical Summary ---
Author Organization [facility] Address [address] [address] Phone Care Team Providers Care Housesmith Name Role Phone Marvin Hough MD Primary [...] ACO C3 ACO C3 ACO C3 ACO [facility] C3 ACO Care Teams Housesmith Relationship Specialty Start Date End Date Marvin Hough MD [address] [place] [address] [address] [place] [phone] josé PCP - General Internal Medicine 06/06/19 Additional Source Comments The information contained in this document represents components of the legal health record. It is not the complete legal health record.[facility]
[2025-05-09 06:13] LABS: Follicle Stimulating Hormone 55.3 mIU/mL
== END 2025-05-08 09:46 | disposition home or self-care (01) ==
LOC: HO.LAB 09:45
PROVIDERS: PCP Internal Medicine; Visit Provider Obstetrics & Gynecology
DX: N93.9 Abnormal uterine and vaginal bleeding, unspecified (principal)
CPT/HCPCS: 36415; 83001; 83002; 84443; 84702; 85027

== ENCOUNTER 2025-05-19 13:47 | Outpatient (REF) | payer MEDICAID, SELFPAY ==
--- NOTE | ~2025-05-19 | US_ITS ---
CLINICAL HISTORY: N93.9 - Abnormal uterine and vaginal bleeding, unspecified US pelvis transabdominal and transvaginal Comparison: None provided Findings: Transabdominal scanning performed for overall anatomy. Transvaginal scanning performed for additional detail. Uterus measures 10.3 cm x 8 cm x 7.8 cm. Diffuse myometrial heterogeneity. Scattered four small myometrial fibroid measuring 0.9 cm, 1.6 cm, 2.2 cm and 0.8 cm. Endometrium 6 mm thickness. Right ovary 2.7 x 1.7 x 1.5 cm. Left ovary 3.2 x 1.6 x 2.7 cm. Simple cyst adjacent to left ovary measuring 2.7 cm x 1.1 cm x 1.7 cm. Normal color Doppler of both ovaries. Small nabothian cysts. No free fluid. IMPRESSION: 1. Small myometrial fibroids as described. 2. Approximately 2 cm left para ovarian cyst. This document has been electronically signed by: Olive Alanis MD on 05/19/2025 18:53:38
== END 2025-05-19 13:48 | disposition home or self-care (01) ==
LOC: HO.US 13:47
PROVIDERS: PCP Internal Medicine; Visit Provider Obstetrics & Gynecology
DX: N93.9 Abnormal uterine and vaginal bleeding, unspecified (principal)
CPT/HCPCS: 76830; 76856

== ENCOUNTER → 2025-05-19 13:48 | Outpatient (BNV) | payer MEDICAID, SELFPAY | PROVIDERS: PCP Internal Medicine; Visit Provider Specialist | DX: D25.1 Intramural leiomyoma of uterus (principal); N83.292 Other ovarian cyst, left side | CPT/HCPCS: 76830; 76856 ==

== ENCOUNTER 2025-05-21 09:37 | Outpatient (AMB) | payer MEDICAID, SELFPAY ==
--- NOTE | 2025-05-21 10:04 | A.OFFVIS_ITS ---
Vital Signs 05/21/25 10:11 Height 4 ft 11 in Weight 138 lb BMI 27.9 BP 118/72 Intake Visit Reasons: u/s follow up & emb Allergies acetaminophen (From Percocet) Adverse Reaction (Mild, Verified 05/07/25 14:18) Itching oxycodone (From Percocet) Adverse Reaction (Mild, Verified 05/07/25 14:18) Itching Post menopausal: Yes HPI Comments Details: Presenting for EMB [facility] Medical History HTN (hypertension) H/O nephrolithotomy with removal of calculi Back problem Kidney stones Surgical History History of appendectomy Hx of abdominoplasty History of breast reconstruction History of bilateral tubal ligation Family History Mother HTN (hypertension) Father Emphysema lung Paternal Aunt Breast cancer in female Social History Household Members Other:: daughter Housing: House Alcohol intake: never Patient Tobacco Use Status: Current everyday Tobacco user Cigarettes Per Day: 1 Current occupational status: unemployed Sexual orientation: Straight/Heterosexual Gender identity: Female Female Reproductive History Menstrual Age of Menarche: 13 Review of Systems Const All systems reviewed & are unremarkable except as noted in HPI and below Reports as per HPI and Reports no additional complaints GI Reports no additional complaints Reports no additional complaints Physical Exam Vital Signs: Last Vital Signs BP 118/72 05/21/25 10:11 BMI result Body Mass Index 27.9 Office Procedures Endometrial Biopsy Details: The patient was counseled regarding the indication and benefits of endometrial sampling to rule out endometrial pathology including not limited to endometrial hyperplasia or endometrial cancer and others; The alternatives (Either do nothing vs. hysteroscopy D&C) & the risks were discussed with the patient including but not limited: pain, uterine perforation, bleeding, infection, possible injury to bladder, bowel, ureter, possible need for blood transfusion with all its possible risks. The patient verbalized understanding all questions answered and signed consent. The patient was placed into the dorsal lithotomy position; a speculum was inserted in the vagina. Using aseptic technique for the procedure, the cervix was cleansed with Betadine. The anterior lip of the cervix was grasped with a single tooth tenaculum. The uterus was sounded to 7 cm with a 4 mm Pipelle was used. Tissues samples were obtained and placed in formalin, in a patient labeled container and sent to the pathology department. At the end of the procedure, there was minimal bleeding noted The patient tolerated the procedure well and was discharged in good condition with the following instructions: Nothing in the vagina until the bleeding stops. No sex until the bleeding stops, to call if any of the following occurs: fever (>100.4), flu-like symptoms, abdominal pain, heavy bleeding, four smelling vaginal discharge. The patient was instructed to schedule a Follow up appointment in 2 weeks to discuss pathology results of the biopsy and treatment options. This note was generated with a voice recognition program. Some errors may have been overlooked during the review of this note. Sometimes these errors may affect the content or meaning of a given sentence. [id number] Biopsy Assessment & Plan Assessment & Plan (1) Abnormal uterine bleeding (AUB): Code(s): N93.9 - Abnormal uterine and vaginal bleeding, unspecified Category: Medical Plan: EMB done, see procedure note Orders: Orders AMB Endometrial Biopsy Today N93.9 - Abnormal uterine and vaginal bleeding, unspecified Coding Level of Care Code Procedure Only Diagnoses Abnormal uterine bleeding (AUB) N93.9 CPT Codes Endometrial Biopsy - CPT: 54142-Gxhepxujnrq Biopsy ([id number])
[2025-05-21 10:11] VITALS: BP 118/72; BMI 27.9
--- OUTSIDE RECORDS SUMMARY | 2025-05-21 17:46 | XMS_ITS | Encounter Summary ---
Author Organization [employer] Address [address] [place] [address] Care Team Providers Care Obiee Report Developer Name Role Phone Marvin Harden MD Primary Care Provide r Encounter Details Date Type Department Care Team ([facility] Contact Info) Description 05/19/2025 Orders Only [facility] External Provider, [facility] Social History Tobacco Use Types Packs/Day Years Used Date Smoking Tobacco: Some Days Cigarettes 0.5 39.9 Started: 1985 Passive Smoke Exposure: Current Smokeless [...] the past 12 months, has t he [employer], gas, oil or water company threatened to [...] Description 05/27/2025 1:15 PM EST Office Visit [facility] [address] [place] [address] Marvin Harden MD [address] [place] [address] documented as of this encounter Goals Goal Patient Goal Type Associated Problems Recent Progress Patient-Stated? Author Blood Pressure < 140/90 Blood Pressure 130/72( 025 11:47 AM EDT) No Walters, Chaporil, PharmD Quit using tobacco (cigarettes, smokeless, etc) Tobacco Use Tobacco dependence syndrome No Walters, Jerril, PharmD documented as of this encounter Procedures Procedure Name Priority Date/Time Associated Diagnosis Comments US PELVIS TRANSVAGINAL Routine 05/19/2025 6:53 PM EST documented in this encounter Results * US Pelvis Transvaginal (05/19/2025 6:53 PM EST) Anatomical Region Laterality Modality Pelvis Ultrasound 05/19/2025 6:53 PM EST Narrative 05/19/2025 6:54 PM EST [address] [address] Ultrasound Report Signed Patient: Neha Lizama MR#: [id number] 1 : 1970 Acct:[id number] Age/Sex: 54 / F ADM Date: 05/19/25 Loc: HO.US Attending Dr: Sven Colin MD Ordering Physician: Sven Colin MD Date of Service: 05/19/25 Procedure(s): US pelvic and transvaginal Accession Number(s): [id number] cc: Marvin Hough MD; Sven Colin MD Reason for Exam: N93.9 - Abnormal uterine and vaginal bleeding, unspecified CLINICAL HISTORY: N93.9 - Abnormal uterine and vaginal bleeding, unspecified US pelvis transabdominal and transvaginal Comparison: None provided Findings: Transabdominal scanning performed for overall anatomy. Transvaginal scanning performed for additional detail. Uterus measures 10.3 cm x 8 cm x 7.8 cm. Diffuse myometrial heterogeneity. Scattered four small myometrial fibroid measuring 0.9 cm, 1.6 cm, 2.2 cm and 0.8 cm. Endometrium 6 mm thickness. Right ovary 2.7 x 1.7 x 1.5 cm. Left ovary 3.2 x 1.6 x 2.7 cm. Simple cyst adjacent to left ovary measuring 2.7 cm x 1.1 cm x 1.7 cm. Normal color Doppler of both ovaries. Small nabothian cysts. No free fluid. IMPRESSION: 1. Small myometrial fibroids as described. 2. Approximately 2 cm left para ovarian cyst. This document has been electronically signed by: Olive Alanis MD on 05/19/2025 18:53:38 Dictated By: Olive Alanis MD Signed By: <Electronically signed by Olive Alanis MD in OV> 05/19/251853 DD/ 52 TD/TT: 05/19/251852 Real Estate Investment Analyst: Procedure Note Donotuseinterpreter, Image - 05/19/2025 [place] [address] Ultrasound Report Signed Patient: Desiree Lizama#: [id number] 1 : 1970Acct:[id number] Age/Sex: 54 / FADM Date: 05/19/25 Loc: HO.US Attending Dr: Sven Colin MD Ordering Physician: Sven Colin MD Date of Service: 05/19/25 Procedure(s): US pelvic and transvaginal Accession Number(s): [id number] cc: Marvin Hough MD; Sven Colin MD Reason for Exam: N93.9 - Abnormal uterine and vaginal bleeding,unspecified CLINICAL HISTORY: N93.9 - Abnormal uterine and vaginal bleeding,unspecified US pelvis transabdominal and transvaginal Comparison: None provided Findings: Transabdominal scanning performed for overall anatomy. Transvaginal scanning performed for additional detail. Uterus measures 10.3 cm x 8 cm x 7.8 cm. Diffuse myometrial heterogeneity. Scattered four small myometrial fibroid measuring 0.9 cm, 1.6 cm, 2.2 cm and 0.8 cm. Endometrium 6 mm thickness. Right ovary 2.7 x 1.7 x 1.5 cm. Left ovary 3.2 x 1.6 x 2.7 cm. Simple cyst adjacent to left ovary measuring 2.7 cm x 1.1 cm x 1.7 cm. Normal color Doppler of both ovaries. Small nabothian cysts. No free fluid. IMPRESSION: 1. Small myometrial fibroids as described. 2. Approximately 2 cm left para ovarian cyst. This document has been electronically signed by: Olive Alanis MD on 05/19/2025 18:53:38 Dictated By: Olive Alanis MD Signed By: <Electronically signed by Olive Alanis MD in OV> 05/19/251853 DD/ 52 TD/TT: 05/19/251852 Real Estate Investment Analyst: [facility] External Provider IMG US PROCEDURES Final Result documented in this encounter Visit Diagnoses Not on filedocumented in this encounter Additional Health Concerns Assessment Noted Time PHQ-9 Depression Total Score: 15 024 10:06 AM EDT documented as of this encounter Care Teams Obiee Report Developer Relationship Specialty Start Date End Date Marvin Harden MD [address] [place] [id number] PCP - General Internal Medicine 07/31/14 documented as of this encounter
--- OUTSIDE RECORDS SUMMARY | 2025-05-21 17:46 | XMS_ITS | Clinical Summary ---
Author Organization [employer] Address [address] [facility] [address] [place] [address] Care Team Providers Care Boat Outboard Engine Mechanic Name Role Phone Marvin Harden MD Primary [...] for a f/u Under the care of Technical Project Lead Dr. Sven Colin , last seen 02/05/2024, [...] reason she was referred to Sven Colin TRAFFIC CHIEF . He repeated her Pelvis US that [...] for a f/u Under the care of Technical Project Lead Dr. Sven Colin , last seen [...] reason she was referred to Sven Colin TRAFFIC CHIEF . He repeated her Pelvis US that [...] to a tertiary care center in [place] to be evaluated by a Neurosurgeon for a second opinion. On 09/04/2019 She was finally seen by Dr. Akbar Osuna at the [facility] Neurosurgery office at [facility]. He mentions in his notes he asked pt for some of her previous imaging and he was going to f/u with her afterwards. Pt tells me she never followed up. I will need to contact Dr Akbar to find out exactly what he needs [...] (08/11/2022 12:45 PM EST): Being evaluated by TRAFFIC CHIEF, according to pt she might be referred to Uro gynecology per her TRAFFIC CHIEF. will f/u She was seen by Urology [...] the area. TSH was wnl [facility] 08/11/2022 Assessment & Plan (11/28/2024 12:05 PM [...] 12:46 PM EST): Pt seen by the chisel trimmer who diagnosed her with Lichen simplex [...] has a new psychotherapist, Dianelys Lizama at [facility] she declines to be referred to a [...] are friends. I referred her to our [facility] program. Plan: Continue Cymbalta to [...] seen for a second opinion at the [facility]. 09/04/2019 Encounters Date Type Department Care Team Description 05/19/2025 Orders Only [facility] External Provider, [facility] 05/19/2025 Patient Outreach [facility] [address] [place] [address] Marvin Harden MD Pre-visit Planning (Pre-visit planning - LVM ) 04/03/2025 Orders Only [facility] [address] [place] [address] Marvin Harden MD Chronic midline low back pain without sciatica (Primary Dx) 04/01/2025 Telephone [facility] [address] [place] [address] Marvin Harden MD Referral 03/17/2025 Telephone [facility] [address] [place] [address] Marvin Harden MD November recall 03/13/2025 Telephone [facility] [address] [place] [address] Carlee Mac, RN NTTS 03/08/2025 Refill [facility] [address] [place] [address] Sid Walters, PharmD from Last 3 Months [...] Description 05/27/2025 1:15 PM EST Office Visit [facility] [address] [place] [address] Marvin Harden MD [address] [place] [address] Health Maintenance Due Date Last Done Comments [...] 04/14/2025 04/14/2015, 07/02/2013, 12/10/2008 Mammogram 04/28/2025 04/28/2023, 10/0 10/2021, 10/10/2018 SDOH Screening 08/05/2025 08/05/2024 Diabetes: [...] PELVIS TRANSVAGINAL Routine 05/19/2025 6:53 PM EST LH Routine 05/08/2025 9:54 AM EST Chronic midline low back pain without sciatica FSH Routine 05/08/2025 9:54 AM EST Chronic midline low back pain without sciatica HCG, TOTAL, QN Routine 05/08/2025 9:54 AM EST Chronic midline low back pain without sciatica TSH W/REFLEX TO FT4 Routine 05/08/2025 9 :54 AM EST Chronic midline low back pain without sciatica CBC Routine 05/08/2025 9:54 AM EST Chronic [...] Recently Relevant to Health Maintenance Results * US Pelvis Transvaginal (05/19/2025 6:53 PM EST) Anatomical Region Laterality Modality Pelvis Ultrasound 05/19/2025 6:53 PM EST Narrative 05/19/2025 6:54 PM EST [address] [address] Ultrasound Report Signed Patient: Neha Lizama MR#: [id number] 1 : 1970 Acct:[id number] Age/Sex: 54 / F ADM Date: 05/19/25 Loc: HO.US Attending Dr: Sven Colin MD Ordering Physician: Sven Colin MD Date of Service: 05/19/25 Procedure(s): US pelvic and transvaginal Accession Number(s): [id number] cc: Marvin Hough MD; Sven Colin MD [...] in OV> 05/19/251853 DD/ 52 TD/TT: 05/19/251852 Dairy Farmworker: Procedure Note Donotuseinterpreter, Image - 05/19/[address] [address] Ultrasound Report Signed Patient: Desiree Lizama#: [id number] 1 : 1970Acct:[id number] Age/Sex: 54 / FADM Date: 05/19/25 Loc: HO.US Attending Dr: Sven Colin MD Ordering Physician: Sven Colin MD Date of Service: 05/19/25 Procedure(s): US pelvic and transvaginal Accession Number(s): [id number] cc: Marvin Hough MD; Sven Colin MD [...] in OV> 05/19/251853 DD/ 52 TD/TT: 05/19/251852 Dairy Farmworker: us [facility] External Provider IMG US PROCEDURES Final Result * TSH with Reflex to Free T4 (05/08/2025 9:54 AM EST) TSH reflex Free T4 0.65 0.32 - 4.0 uIU/mL [facility] 05/08/2025 9:54 AM EST 05/08/2025 10:00 AM EST us Generic External Data Provider LAB BLOOD ORDERAB LES Final Result Performing Organization Address City/[facility]/ZIP Co de Phone Number [facility] [address] [place] [address] [phone] * (ABNORMAL) CBC (05/08/2025 9:54 AM EST) White Blood Count 6.4 4.8 - 10.8 X10*3/uL [facility] Red Blood Count 5.04 4.20 - 5.50 X10*6/uL [facility] Hemoglobin 14.0 12.0 - 16.0 g/dl [facility] Hematocrit 44.4 37.0 - 47.0 % [facility] Mean Corpuscular Volume 88.1 80.0 - 98.0 fL [facility] Mean Corpuscular Hemoglobin 27.8 27.0 - 33.0 pg [facility] Mean Corpuscular HGB Conc 31.5 31.0 - 35.0 g/dl [facility] Red Cell Distribution Width 14.7 11.0 - 16.0 % [facility] Platelet Count 352 160 - 400 X10*3/uL [facility] Mean Platelet Volume 10.6 9.4 - 12.3 fL [facility] NRBC Pct Auto 0.8(H) 0.0 - 0.2 /100WBC [facility] NRBC Abs Auto 0.050(H) 0.0 - 0.012 X10*3/uL [facility] 05/08/2025 9:54 AM EST 05/08/2025 10:00 AM EST us Generic External Data Provider LAB BLOOD ORDERAB LES Final Result Performing Organization Address [facility]/ZIP Co de Phone Number [facility] [address] [place] [address] [phone] * hCG, Total, Quantitative (05/08/2025 9:54 AM EST) HCG Quantitative <2 mIU/mL [facility] Comment:Weeks post LMP Appro ximate hCG(Last Menstrual Period) Range (mIU/ml)3 - 4 weeks 9 - 1304 - 5 weeks 75 - 2,6005 - 6 weeks 850 - 20,8006 - 7 weeks 4000 - 100,2007 - 12 weeks 11,500 - 289,18749 - 16 weeks 18,300 - 137,47470 - 29 weeks (2nd trimester) 1,400 - 53,73509 - 41 weeks (3rd trimester) 940 - 60,000The Cortes B- hCG assay is used for the early detection ofpregnancy; it cannot be used to diagnose any conditionunrelated to . If a B-hCG level is not supportedby the clinical evidence, results should be confirmed by analternative method (qualitative urine hCG, for example). 05/08/2025 9:54 AM EST 05/08/2025 10:00 AM EST Generic External Data Provider LAB BLOOD ORDERAB LES Final Result Performing Organization Address City/[facility]/ZIP Co de Phone Number [facility] [address] [place] [phone] * LH (05/08/2025 9:54 AM EST) Lutenizing Hormone 28.9 mIU/mL [facility] Comment:Reference Range Foll icular Phase 1.9-12.5 Mid-Cycle Peak 8.7-76.3 Luteal Phase 0.5-16.9 Postmenopausal 10.0-54.7THIS TEST WAS PERFORMED AT:[facility] [place] [phone] GILBERT MD 05/08/2025 9:54 AM EST 05/08/2025 10:00 AM EST us Generic External Data Provider LAB BLOOD ORDERAB LES Final Result Performing Organization Address City/[facility]/ZIP Co de Phone Number [facility] [address] [place] [phone] * FSH (05/08/2025 9:54 AM EST) Pathologist [facility] Follicle Stimulating Hormone 55.3 mIU/mL [facility] Comment:Reference Range Foll icular Phase 2.5-10.2 Mid-cycle Peak 3.1-17.7 Luteal Phase 1.5- 9.1 Postmenopausal 23.0-116.3THIS TEST WAS PERFORMED AT:[facility] [place] [phone] GILBERT MD 05/08/2025 9:54 AM EST 05/08/2025 10:00 AM EST Generic External Data Provider LAB BLOOD ORDERAB LES Final Result Performing Organization Address [facility]/ZIP Co de Phone Number [facility] [address] [place] [phone] * Hepatitis C Antibody with Reflex to HCV, RNA, Quantitative, Real-Time PCR (08/15/2024 10:32 AM EST) Pathologist [facility] Hepatitis C Antibody Nonreactive Nonreactive [facility] Comment:Antibodies to HCV no t detected; does not exclude early acuteHCV infection. Blood Venous blood specimen / Unknown 08/15/2024 10:32 AM EST 08/15/2024 11:15 AM EST us Marvin Zapata MD LAB BLOOD ORDERABLES Final Result Performing Organization Address City/[facility]/ZIP Co de Phone Number [facility] [address] [place] [phone] * HIV-1/2 Antigen and Antibodies, Fourth Generation, with Reflexes (08/15/2024 10:32 AM EST) Pathologist [facility] HIV AB/AG Nonreactive Nonreactive [facility] Comment:HIV-1 p24 Ag and/or HIV-1/HIV-2 Ab not detected.A test result that is nonreactive does not exclude thepossibility of exposure to or infection with HIV-1 and/orHIV-2. Nonreactive results in this assay for individualswith prior exposure to HIV-1 and/or HIV-2 may be due toantigen and antibody levels that are below the limit ofdetection of this assay.The Yorn HIV Ag/Ab Combo assay result andsupplemental assay results should be interpreted inconjunction with the patient's clinical presentation,history and other laboratory results. If the results areinconsistent with clinical evidence, additional testing issuggested to confirm the result. Blood Venous blood specimen / Unknown 08/15/2024 10:32 AM EST 08/15/2024 11:15 AM EST Marvin Zapata MD LAB BLOOD ORDERABLES Final Result Performing Organization Address [facility] Co de Phone Number [facility] [address] [place] [phone] * Hemoglobin A1c (08/15/2024 10:32 AM EST) Hemoglobin A1c 5.7 <6.0 % [facility] Comment:Hemoglobin A1C Refer ence Range Adults: 4.8 - 6.0 % Non diabetic: < 6.0 % Goal: < 7.0 %Additional Action Suggested: > 8.0 %Note: Hemoglobin A1c results are invalid for patients with abnormal amounts of HbF. Blood transfusions may impact the HbA1c concentration in the patient sample. Estimated Average Glucose 117 mg/dL [facility] Comment:eAG = Estimated ave rage glucose which is %A1C expressed asaverage glucose, using the formula of the D8L-TagftwhOducdjb Glucose study (ADAG), Diabetes Care, Vol.31,#8,Jan. 2007 08/15/2024 10:3 2 AM EST 08/15/2024 11:15 AM EST Marvin Zapata MD LAB BLOOD ORDERABLES Final Result Performing Organization Address [facility] Co de Phone Number [facility] [address] [place] [phone] * (ABNORMAL) Lipid Panel, Standard (08/15/2024 10:32 AM EST) Triglycerides 162(H) <150 mg/dL [facility] Comment:Desirable Triglyceri de: less than 150 mg/dLBorderline High Triglyceride 150-199 mg/dLHigh Triglyceride: 200-499 mg/dLVery High Triglyceride: greater than or equal to 5OO mg/dL Cholesterol 204(H) <200 mg/dL [facility] Comment:Desirable Cholestero l: less than 200 mg/dLBorderline High Cholesterol: 200-239 mg/dLHigh Cholesterol: greater than 239 mg/dL LDL Cholesterol Calculated 125(H) <100 mg/dL [facility] Comment:Desirable LDL: less than 100 mg/dLNear Optimal/Above Optimal LDL: 110- 129 mg/dLBorderline High LDL: 130-159 mg/dLHigh LDL: 160-189 mg/dLVery High LDL: greater than or equal to 190 mg/dL HDL Cholesterol 47 >40 mg/dL [facility] Comment:Desirable HDL: great er than 40 mg/dL Note: This HDL assay may give artificially low results in patients with liver disease. Blood Venous blood specimen / Unknown 08/15/2024 10:32 AM EST 08/15/2024 11:15 AM EST us Marvin Zapata MD LAB BLOOD ORDERABLES Final Result [facility] [address] [place] [phone] * BI Mammogram Screening Tomosynthesis Bilateral (04/28/2023 3:30 PM EDT) Anatomical Region Laterality Modality Breast Bilateral Mammography 04/28/2023 3:30 PM EDT Narrative 05/21/2023 11:05 PM EST [facility] [address] [place] [address] Mammography Report Signed Patient: Neha Lizama MR#: [id number] 1 : 1970 Acct:[id number] Age/Sex: 52 / F ADM Date: 04/28/23 Loc: ISSA Attending Dr: Marvin Hough MD Ordering Physician: Marvin Hough MD Resu lts: 1Negative Date of Service: 04/28/23 Follow Up: 1 Year From Orig inal Mammogram Procedure(s): MM tomosynthesis screening BI Accession Number(s): [id number] cc: Marvin Hough MD EXAMINATION: MM SCREENING [...] in OV> 05/21/23 2301 DD/ 1530 TD/TT: Dairy Farmworker: Procedure Note Donotuseinterpreter, Image - 05/21/2023 [place] [facility] [address] [place] [address] Mammography Report Signed Patient: Desiree Lizama#: [id number] 1 : 1970Acct:[id number] Age/Sex: 52 / FADM Date: 04/28/23 Loc: ISSA Attending Dr: Marvin Hough MD Ordering Physician: Marvin Hough MDResu lts: 1Negative Date of Service: 04/28/23Follow Up: 1 Year From Orig inal Mammogram Procedure(s): MM tomosynthesis screening BI Accession Number(s): [id number] cc: Marvin Hough MD EXAMINATION: MM SCREENING [...] in OV> 05/21/23 2301 DD/ 1530 TD/TT: Dairy Farmworker: Marvin Zapata MD IMG BI PROCEDURES Christopher rambo Result - Final * HPV E6/E7 RFLX [place] 16 18/45 (10/07/2020 1:50 PM EDT) HPV 16 RNA TNP [facility] HPV 18/45 RNA [facility]NP [facility] HPV E6 E7 ADD TNP [facility] HPV mRNA E6/E7 rflx Not Detected Not Detected [facility] Comment: Methodology: Computer Information Systems Professor-Mediated Amplification This assay detects E6/E7 viral messenger RNA (mRNA) from 14 high-risk HPV types (16,18,31,33,35,39,45,51,52,56,58,59,66,68). The analytical performance characteristics of this assay have been determined by [employer]. The modifications have not been cleared or approved by the FDA. This assay has been validated pursuant to the CLIA regulations and is used for clinical purposes. For additional information, please refer to http://education.Sembraire/faq/GKL761n7 (This link if provided for information/ educational purposes only.) THIS TEST WAS PERFORMED AT: [facility] [address] [place] [address] [address],[place] [address] MARIVEL GILBERT MD 10/07/2020 1:50 PM EDT Sven Colin MD HISTORICAL/NON ORDERABLE LABS Fi nal Result [facility] [address] * Colonoscopy (02/05/2016) Colonoscopy Normal Normal Historical Provider HEALTH MAINTENANCE Final Result from Last 3 Months or Most Recently Relevant to Health Maintenance Insurance [facility] C[facility] F[facility] Care Teams Boat Outboard Engine Mechanic Relationship Specialty Start Date End Date Marvin Harden MD [address] [place] [phone] PCP - General Internal Medicine 07/31/14
--- OUTSIDE RECORDS SUMMARY | 2025-05-21 17:46 | XMS_ITS | Encounter Summary ---
Author Organization [employer] Address [address] [facility] [address] [place] [address] Care Team Providers Care Sample Tailor Name Role Phone Marvin Harden MD Primary Care Provide r Reason for Visit * Reason Comments Pre-visit Planning Pre-visit planning - LVM Encounter Details Date Type Department Care Team ([facility] Contact Info) Description 05/19/2025 Patient Outreach [facility] [address] [place] [address] Marvin Harden MD [address] [place] [address] Pre-visit Planning (Pre-visit planning - LVM ) Social History Tobacco Use Types Packs/Day Years [...] encounter Progress Notes * Ally Stephens - 05/19/2025 3:35 PM EST [facility] Chua placed outbound call to patient to complete pre-visit planning. No answer at this time. Patient name and were not confirmed. CC left voicemail requesting return call. Direct contact information provided. documented in this encounter Plan of Treatment Upcoming Encounters Date Type Department Care Team (Late st Contact Info) Description 05/27/2025 1:15 PM EST Office Visit [facility] [address] [place] [address] Marvin Harden MD [address] [place] [address] documented as of this encounter Goals Goal Patient Goal Type Associated Problems Recent Progress Patient-Stated? Author Blood Pressure < 140/90 Blood Pressure 130/72( 025 11:47 AM EDT) No Sid Walters, PharmD Quit using tobacco (cigarettes, smokeless, etc) Tobacco Use Tobacco dependence syndrome No Sid Walters, PharmD documented as of this encounter Visit Diagnoses Not on filedocumented in this encounter Additional Health Concerns Assessment Noted Time PHQ-9 Depression Total Score: 15 024 10:06 AM EDT documented as of this encounter Care Teams Sample Tailor Relationship Specialty Start Date End Date Marvin Harden MD [address] [place] [address] PCP - General Internal Medicine 07/31/14 documented as of this encounter
--- OUTSIDE RECORDS SUMMARY | 2025-05-21 17:46 | XMS_ITS | Clinical Summary ---
Author Organization [facility] Address [address] [employer] [address] [address] Phone Care Team Providers Care Radial Drill Press Set Up Operator Name Role Phone Marvin Hough MD Primary [...] ACO C3 ACO C3 ACO C3 ACO [facility] C3 ACO Care Teams Radial Drill Press Set Up Operator Relationship Specialty Start Date End Date Marvin Hough MD [address] [place] [address] [address] [place] [phone] josé PCP - General Internal Medicine 06/06/19 Additional Source Comments The information contained in this document represents components of the legal health record. It is not the complete legal health record.[facility]
== END 2025-05-21 10:29 | disposition home or self-care (01) ==
LOC: HO.HWS 09:37
PROVIDERS: PCP Internal Medicine; Visit Provider Obstetrics & Gynecology
DX: N93.9 Abnormal uterine and vaginal bleeding, unspecified (principal)
CPT/HCPCS: 58100

== ENCOUNTER 2025-05-21 09:37 | Outpatient (REF) | payer MEDICAID, SELFPAY | END 2025-05-21 09:38 | disposition home or self-care (01) | LOC: HO.LNP 09:37 | PROVIDERS: PCP Internal Medicine; Visit Provider Obstetrics & Gynecology | DX: N93.9 Abnormal uterine and vaginal bleeding, unspecified (principal) | CPT/HCPCS: 58100; 88305 ==

== ENCOUNTER 2025-05-27 14:21 | Outpatient (REF) | payer MEDICAID, SELFPAY ==
--- NOTE | ~2025-05-27 | XR_ITS ---
EXAMINATION: XR FOOT 3 OR MORE VIEWS RIGHT HISTORY: right foot pain COMPARISON: There are no prior studies available for comparison. FINDINGS: Four views of the right foot are submitted. Osseous mineralization is normal. There is no fracture or dislocation. The joint spaces are preserved. The soft tissues are unremarkable. XR/XR foot RT min 3V IMPRESSION: Unremarkable examination of the right foot. Electronically signed by: Jason Rodriguez MD 05/27/2025 02:44 PM [facility]
--- OUTSIDE RECORDS SUMMARY | 2025-05-27 13:15 | XMS_ITS | Encounter Summary ---
Author Organization [employer] Address [address] [facility] 7 [place] [address] Care Team Providers Care Director Of Online Merchandising Name Role Phone Marvin Harden MD Primary Care Provide r Reason for Visit * Reason Comments Follow up HTN Encounter Details Date Type Department Care Team ([facility] st Contact Info) Description 05/27/2025 1:15 PM EST Office Visit [facility] MEDICINE [address], [place] [phone] Marvin Harden MD [address] [place] [address] Essential hypertension (Primary Dx); Chronic midline low back pain without sciatica; Screening for colorectal cancer; Preventative health care; Right foot pain; Encounter for immunization Social History Tobacco Use Types Packs/Day Years [...] AM EDT documented as of this encounter Last Filed Vital Signs Vital Sign Reading Time Taken Comments Blood Pressure 159/82 05/27/2025 1:41 PM EST Pulse 76 05/27/2025 1:33 PM EST Temperature 36.1 C (97 F) 05/27/2025 1:33 PM EST Respiratory Rate 18 05/27/2025 1:33 PM EST Oxygen Saturation - - Inhaled Oxygen Concentration - - Weight 65.2 kg (143 lb 12.8 oz) 05/27/2025 1:33 PM EST Height 149.9 cm (4' 11 ) 05/27/2025 1:33 PM EST Body Mass Index 29.04 05/27/2025 1:33 PM EST documented in this encounter Progress Notes * Marvin Zapata MD - 05/27/2025 1:15 PM EST SUBJECTIVE Neha Lizama is a 54 y.o. female who presents for Follow up HTN . Neha Lizama, 54 years Foot pain - History of plantar fasciitis diagnosed in the past - Current pain located on top of the foot and between toes, with permanent discomfort - Pain described as stronger upon waking, ongoing for several months - Occasional mild swelling and increased discomfort in the affected toe, noted two days prior to visit - Denies trauma or injury to the area - No redness or significant inflammation reported - Previously prescribed topical cream for pain, no oral anti-inflammatory medication given Blood pressure - Reports elevated blood pressure readings at home, with systolic values around 150 - Noted that blood pressure was previously controlled - Advised to monitor blood pressure weekly after taking medications - No symptoms related to blood pressure reported Weight changes - Weight was 153 lbs last year, decreased to 141 lbs, currently 143 lbs - Reports a net weight loss of 10 lbs compared to previous year Colonoscopy - Last colonoscopy performed in 2015 - Next colonoscopy scheduled for the following year Mammogram - Mammogram performed in August 2024, reported as normal Lumbar pain - History of lumbar pain, previously evaluated with imaging showing inflammation - Pain described as less severe than post-surgical pain experienced in the past Misc - Denies need for influenza and tetanus vaccines at this visit HPI Review of Systems Constitutional: Negative for fever. HENT: Negative for sore throat. Respiratory: Negative for cough and shortness of breath. Cardiovascular: Negative for chest pain. Gastrointestinal: Negative for abdominal pain. Neurological: Negative for headaches. Allergies[1] OBJECTIVE Vitals: 05/27/25 1333 05/27/25 1341 BP: (!) 170/90 (!) 159/82 BP Location: Right arm Left arm Patient Position: Sitting Sitting BP Cuff Size: Adult Pulse: 76 Resp: 18 Temp: 97 ??F (36.1 ??C) TempSrc: Oral Weight: 143 lb 12.8 oz (65.2 kg) Height: 4' 11 (1.499 m) Physical Exam Vitals reviewed. Constitutional: Appearance: Normal appearance. HENT: Head: Normocephalic and atraumatic. Right Ear: External ear normal. Left Ear: External ear normal. Nose: Nose normal. Mouth/Throat: Mouth: Mucous membranes are moist. Eyes: Conjunctiva/sclera: Conjunctivae normal. Cardiovascular: Rate and Rhythm: Normal rate and regular rhythm. Pulmonary: Effort: Pulmonary effort is normal. Breath sounds: Normal breath sounds. Skin: General: Skin is warm. Neurological: Mental Status: She is alert. Mental status is at baseline. Assessment/Plan Problem List Items Addressed This Visit Essential hypertension - Primary Patient with Hypertension Here for a f/u BP currently elevated She is on a regimen of: Lisinopril 10-Hctz 12.5 mg po daily ( confirmed with [facility] ) Most recent electrolytes, Bun and Creatinine done on: Lab Results Component Value Date NA 140 08/15/2024 K 4.3 08/15/2024 CL 108 08/15/2024 BUN 14 08/15/2024 BUN 16 04/14/2022 CREATININE 0.72 08/15/2024 were within normal limits. plan: Continue current regimen, repeat BMP, 1 month follow up with RN for BP check and with me f/u 4 months patient advised to adhere to a low sodium diet, encouraged about medication compliance, counseled about weight loss. Relevant Orders Comprehensive Metabolic Panel Lipid Panel, Standard Chronic midline low back pain without sciatica Pt is here for a follow up Patient requested to be seen by BERNARD, appointment was 05/23/2025 @ 9am tried to call to request notes but Left message for them to returm call. She is s/p Anterior lumbar interbody fusion L5-S1 with titanium cages and bone morphogenic protein product in 07/2018 by Lopez Manning, she initially reported improvement after the surgery, but that is no longer the case Pt was also evaluated as well by Dr. Cintia Monroy Neurosurgeon who was in agreement with Dr. Manningregarding her diagnosis and the plan She was [...] previously prescribed Cymbalta 120 mg po BID forher but she felt it was not helping. Previously I offered patient a referral to a tertiary care center in [place] to be evaluated by a Neurosurgeon for a second opinion. On 09/04/2019 She was finally seen by Dr. Akbar Osuna at the [facility] Neurosurgery office at [facility]. He mentions in his notes he asked pt for some of her previous imaging and he was going to f/u with her afterwards. Pt tells me she never followed up. Screening for colorectal cancer Future appointment [facility] 08/13/2025 @ 8am. Preventative health care Mammogram: 08/29/2024 Normal Colonoscopy: 2015 Dr Orellana Relevant Orders POCT Glucose (Completed) Right foot pain Right foot pain with localized discomfort and intermittent swelling; differential includes plantar fasciitis and possible arthritis. - Ordered right foot X-ray to evaluate for arthritis or other pathology. Recommended topical anti-inflammatory cream to be applied twice daily. Relevant Orders XR Foot 3+ Views Right Other Visit Diagnoses Encounter for immunization Relevant Orders TDAP VACCINE 7 yrs + (Completed) This note was drafted using Ambient (AI) technology. The patient/patient's guardian has been informed and has consented to the use of this technology: Yes Future Appointments Date Time Provider Department Center 06/25/2025 3:00 PM [facility] [place] TE[facility] NURSE MEDICINE [facility] 08/28/2025 2:00 PM Marvin Zapata MD MEDICINE [facility] [1] Allergies Allergen Reactions Doxycycline Rash Oxycodone-Acetaminophen Rash documented in this encounter Miscellaneous Notes * Assessment & Plan Note - Marvin Zapata MD - 05/27/2025 1:46 PM EST Associated Problem(s): Right foot pain Right foot pain with localized discomfort and intermittent swelling; differential includes plantar fasciitis and possible arthritis. - Ordered right foot X-ray to evaluate for arthritis or other pathology. Recommended topical anti-inflammatory cream to be applied twice daily. * Assessment & Plan Note - Marvin Zapata MD - 05/27/2025 1:36 PM EST Associated Problem(s): Screening for colorectal cancer Future appointment [facility] 08/13/2025 @ 8am. * Assessment & Plan Note - Mavrin Zapata MD - 05/27/2025 1:36 PM EST Associated Problem(s): Chronic midline low back pain without sciatica Pt is here for a follow up Patient requested to be seen by BERNARD, appointment was 05/23/2025 @ 9am tried to call to request notes but Left message for them to returm call. She is s/p Anterior lumbar interbody fusion L5-S1 with titanium cages and bone morphogenic protein product in 07/2018 by Lopez Manning, she initially reported improvement after the surgery, but that is no longer the case Pt was also evaluated as well by Dr. Cintia Monroy Neurosurgeon who was in agreement with Dr. Manningregarding her diagnosis and the plan She was [...] previously prescribed Cymbalta 120 mg po BID forher but she felt it was not helping. Previously I offered patient a referral to a tertiary care center in [place] to be evaluated by a Neurosurgeon for a second opinion. On 09/04/2019 She was finally seen by Dr. Akbar Osuna at the [facility] Neurosurgery office at [facility]. He mentions in his notes he asked pt for some of her previous imaging and he was going to f/u with her afterwards. Pt tells me she never followed up. * Assessment & Plan Note - Marvin Zapata MD - 05/27/2025 1:33 PM EST Associated Problem(s): Essential hypertension Patient with Hypertension Here for a f/u BP currently elevated She is on a regimen of: Lisinopril 10-Hctz 12.5 mg po daily ( confirmed with [facility] ) Most recent electrolytes, Bun and Creatinine done on: Lab Results Component Value Date NA 140 08/15/2024 K 4.3 08/15/2024 CL 108 08/15/2024 BUN 14 08/15/2024 BUN 16 04/14/2022 CREATININE 0.72 08/15/2024 were within normal limits. plan: Continue current regimen, repeat BMP, 1 month follow up with RN for BP check and with me f/u 4 months patient advised to adhere to a low sodium diet, encouraged about medication compliance, counseled about weight loss. * Assessment & Plan Note - Marvin Zapata MD - 05/27/2025 1:31 PM EST Associated Problem(s): Preventative health care Mammogram: 08/29/2024 Normal Colonoscopy: 2015 Dr Orellana documented in this encounter Plan of Treatment Upcoming Encounters Date Type Department Care Team (Late st Contact Info) Description 06/25/2025 3:00 PM EST Clinical Support [facility] MEDICINE [address] [place] [phone] 08/28/2025 2:00 PM EST Office Visit [facility] MEDICINE [address] [place] [phone] Marvin Harden MD [address] [place] [phone] Scheduled Orders Name Type Priority Associated Diagnoses Orde r Schedule Comprehensive Metabolic Panel Lab Routine Essential hypertension Ordered: 05/27/2025 Lipid Panel, Standard Lab Routine Essential hypertension Ordered: 05/27/2025 documented as of this encounter Goals Goal Patient Goal Type Associated Problems Recent Progress Patient-Stated? Author Blood Pressure < 140/90 Blood Pressure 159/82( 025 1:41 PM EST) No Sid Walters PharmD Quit using tobacco (cigarettes, smokeless, etc) Tobacco Use Tobacco dependence syndrome No Sid Walters PharmD documented as of this encounter Procedures Procedure Name Priority Date/Time Associated Diagnosis Comments XR FOOT 3+ VIEWS RIGHT Routine 05/27/2025 2:40 PM EST Right foot pain POCT GLUCOSE Routine 05/27/2025 1:35 PM EST Preventative health care documented in this encounter Results * XR Foot 3+ Views Right (05/27/2025 2:40 PM EST) Anatomical Region Laterality Modality Lower Extremities, Foot Right Radiogra phic Imaging 05/27/2025 2:40 PM EST Narrative 05/27/2025 2:47 PM EST [address] [address] XRay Report Signed Patient: Neha Lizama MR#: [id number] [birth year] : 1970 Acct:[id number] Age/Sex: 54 / F ADM Date: 05/27/25 Loc: HO.HHCX Attending Dr: Marvin Hough MD Ordering Physician: Marvin Hough MD Date of Service: 05/27/25 Procedure(s): XR foot RT min 3V Accession Number(s): [id number] cc: Marvin Hough MD Reason for Exam: right foot pain EXAMINATION: XR FOOT 3 OR MORE VIEWS RIGHT HISTORY: right foot pain COMPARISON: There are no prior studies available for comparison. FINDINGS: Four views of the right foot are submitted. Osseous mineralization is normal. There is no fracture or dislocation. The joint spaces are preserved. The soft tissues are unremarkable. XR/XR foot RT min 3V IMPRESSION: Unremarkable examination of the right foot. Electronically signed by: Jason Rodriguez MD 05/27/2025 02:44 PM EST Dictated By: Jason Rodriguez MD Signed By: <Electronically signed by Jason Rodriguez MD in OV> 05/27/25 144 DD/ 144 TD/TT: 05/27/251440 Biochemistry Specialist: Procedure Note [place], Image - 05/27/[address] [address] XRay Report Signed Patient: Desiree Lizama#: [id number] 1 : 1970Acct:[id number] Age/Sex: 54 / FADM Date: 05/27/25 Loc: .HHCX Attending Dr: Marvin Hough MD Ordering Physician: Marvin Hough MD Date of Service: 05/27/25 Procedure(s): XR foot RT min 3V Accession Number(s): [id number] cc: Marvin Hough MD Reason for Exam: right foot pain EXAMINATION: XR FOOT 3 OR MORE VIEWS RIGHT HISTORY: right foot pain COMPARISON: There are no prior studies available for comparison. FINDINGS: Four views of the right foot are submitted. Osseous mineralization is normal. There is no fracture or dislocation. The joint spaces are preserved. The soft tissues are unremarkable. XR/XR foot RT min 3V IMPRESSION: Unremarkable examination of the right foot. Electronically signed by: Jason Rodriguez MD 05/27/2025 02:44 PM EST Dictated By: Jason Rodriguez MD Signed By: <Electronically signed by Jason Rodriguez MD in OV> 05/27/25 1444 DD/ 1440 TD/TT: 05/27/25 144 Biochemistry Specialist: us Marvin Zapata MD IMG XR PROCEDURES Fin al Result * POCT Glucose (05/27/2025 1:35 PM EST) Glucose Blood, POC 154 60 - 200 mg/dL QC Media Lot # [id number] Lot# Expiration Date Blood Capillary blood specimen / Unknown 05/27/2025 1:35 PM EST Marvin Zapata MD POINT OF CARE TEST EN TER/EDIT ORDERABLES Final Result documented in this encounter Visit Diagnoses Diagnosis Essential hypertension- Primary Unspecified essential hypertension Chronic midline low back pain without sciatica Screening for colorectal cancer Preventative health care Routine general medical examination at a health care facility Right foot pain Pain in soft tissues of limb Encounter for immunization documented in this encounter Additional Health Concerns Assessment Noted Time PHQ-9 Depression Total Score: 15 024 10:06 AM EDT documented as of this encounter Care Teams Director Of Online Merchandising Relationship Specialty Start Date End Date Marvin Harden MD [address] [place] [phone] PCP - General Internal Medicine 07/31/14 documented as of this encounter
--- OUTSIDE RECORDS SUMMARY | 2025-05-27 18:13 | XMS_ITS | Encounter Summary ---
Author Organization [employer] Address [address] [facility] [address] [place] [address] Care Team Providers Care Director Agricultural Services Name Role Phone Marvin Harden MD Primary Care Provide r Encounter Details Date Type Department Care Team ([facility] st Contact Info) Description 05/23/2025 Telephone [facility] [address] [place], [place] [phone] Marvin Harden MD [address] [place], [place] [phone] Social History Tobacco Use Types Packs/Day Years [...] encounter Miscellaneous Notes * Telephone Encounter - Digna Henderson [place] - 05/23/2025 1:48 PM EST Chart Prep Labs: not applicable Images: not applicable Referrals: Pt has an apt at [facility] 05/23/2025 @ 9am tried to call to request notes but Left message for them to returm call. Future appointment [facility] Gastro 08/13/2025 @ 8am. Vaccines due: Covid, Flu, and Tdap Screenings: not applicable Overdue care gaps: SDOH and Disability screen documented in this encounter Plan of Treatment Upcoming Encounters Date Type Department Care Team ([facility] st Contact Info) Description 06/25/2025 3:00 PM EST Clinical Support [facility] [address] [place] [address] [place] [address] 08/28/2025 2:00 PM EST Office Visit [facility] [address] [place] [phone] Marvin Harden MD [address] [place] [address] documented as of this encounter Goals Goal Patient Goal Type Associated Problems Recent Progress Patient-Stated? Author Blood Pressure < 140/90 Blood Pressure 159/82( 025 1:41 PM EST) No Sid Walters, PharmD Quit using tobacco (cigarettes, smokeless, etc) Tobacco Use Tobacco dependence syndrome No Sid Walters PharmD documented as of this encounter Visit Diagnoses Not on filedocumented in this encounter Additional Health Concerns Assessment Noted Time PHQ-9 Depression Total Score: 15 024 10:06 AM EDT documented as of this encounter Care Teams Director Agricultural Services Relationship Specialty Start Date End Date Marvin Harden MD [address] [place] [phone] PCP - General Internal Medicine 07/31/14 documented as of this encounter
--- OUTSIDE RECORDS SUMMARY | 2025-05-27 18:13 | XMS_ITS | Clinical Summary ---
Author Organization [employer] Address [address] [place] [address] 7[address] [place] [address] Care Team Providers Care Equipment Operator Warehouse Name Role Phone Marvin Harden MD Primary [...] Active Problems Problem Noted Date Diagnosed Date Right foot pain 05/27/2025 Assessment & Plan (05/27/2025 2:46 PM EST): Right foot pain with localized discomfort and intermittent swelling; differential includes plantar fasciitis and possible arthritis. - Ordered right foot X-ray to evaluate for arthritis or other pathology. Recommended topical anti-inflammatory cream to be applied twice daily. Class 1 obesity due to exces s [...] for a f/u Under the care of Bobbin Collector Dr. Sven Colin , last seen 02/05/2024, [...] reason she was referred to Sven Colin POCKET SETTER . He repeated her Pelvis US that [...] for a f/u Under the care of Bobbin Collector Dr. Sven Colin , last seen 03/10/2021, [...] reason she was referred to Sven Colin POCKET SETTER . He repeated her Pelvis US that [...] stable for 1+ years. Assessment & Plan (05/27/2025 1:43 PM EST): Patient with Hypertension Here for [...] counseled about weight loss. Assessment & Plan (11/28/2024 11:51 AM EDT): [...] without sciatica 0 08/11/2022 Assessment & Plan (05/27/2025 1:36 PM EST): Pt is here for a follow up [...] referral to a tertiary care center in [place] to be evaluated by a Neurosurgeon for a second opinion. On 09/04/2019 She was finally seen by Dr. Akbar Osuna at the [facility] Neurosurgery office at [facility]. He mentions in his notes he asked pt for some of her previous imaging and he was going to f/u with her afterwards. Pt tells me she never followed up. Assessment & Plan (08/11/2022 12:41 PM EST): [...] referral to a tertiary care center in [place] to be evaluated by a Neurosurgeon for a second opinion. On 09/04/2019 She was finally seen by Dr. Akbar Osuna at the [facility] Neurosurgery office at [facility]. He mentions in his notes [...] Televisit Previous CT of Abdomen and Pelvis 2018 showed: 3. Subtle low-attenuation along the medial [...] Televisit Previous CT of Abdomen and Pelvis 2018 showed: 3. Subtle low-attenuation along the medial wall second portion of duodenum may represent differential enhancement. No evidence of biliary or pancreatic ductal dilatation. Monitoring is recommended. repeat CT of Abdomen with and without contrast showed: BOWEL LOOPS: The small bowel loops are normal caliber. No further intervention Urge incontinence of urine 08/11/2022 Assessment & Plan (08/11/2022 12:45 PM EST): Being evaluated by POCKET SETTER, according to pt she might be referred to Uro gynecology per her POCKET SETTER. will f/u She was seen by Urology [...] in the area. TSH was [facility] 08/11/2022 Assessment & Plan (05/27/2025 1:31 PM EST): Mammogram: 08/29/2024 Normal Colonoscopy: 2015 Dr Orellana Assessment & Plan (11/28/2024 12:05 PM EDT): [...] - Due for Shingrix Vaccine. Scheduled for 01-12 in the pharmacy. Assessment & Plan (08/11/2022 3:21 PM EST): Mammogram: April 2022 Normal Colonoscopy: 2015 Dr Orellana Screening for colorectal cancer 08/11/2022 Assessment & Plan (05/27/2025 1:36 PM EST): Future appointment [facility] Gastro 08/13/2025 @ 8am. Kidney stone 12/02/2014 Assessment & Plan (08/11/2022 [...] 12:46 PM EST): Pt seen by the propeller inspector who diagnosed her with Lichen simplex chronicus [...] has a new psychotherapist, Dianelys Lizama at [facility] she declines to be referred to a [...] are friends. I referred her to our I program. Plan: Continue Cymbalta to 60 mg [...] seen for a second opinion at the [facility] Spine Center. 09/04/2019 Encounters Date Type Department Care Team Description 05/27/2025 1:15 PM EST Office Visit [facility] [address] [place] [address] Marvin Harden MD Essential hypertension (Primary Dx); Chronic midline low back pain without sciatica; Screening for colorectal cancer; Preventative health care; Right foot pain; Encounter for immunization 05/27/2025 Results Follow-Up [facility] [address] [place] [address] Marvin Harden MD XR Foot 3+ Views Right 05/27/2025 Travel 05/23/2025 Telephone [facility] [address] [place] [address] Marvin Harden MD 05/19/2025 Orders Only [facility] External Provider, [facility] 05/19/2025 Patient Outreach [facility] [address] [place] [address] Marvin Harden MD Pre-visit Planning (Pre-visit planning - LVM ) 04/03/2025 Orders Only [facility] [address] [place] [address] Marvin Harden MD Chronic midline low back pain without sciatica (Primary Dx) 04/01/2025 Telephone [facility] [address] [place] [address] Marvin Harden MD Referral 03/17/[address] [address] Marvin Harden MD November recall 03/13/2025 Telephone [facility] [address] [place] [address] Carlee Mac, RN NTTS 03/08/2025 Refill [facility] [address] [place] [phone] Sid Walters, PharmD from Last 3 Months [...] tox oid, preservative free, adsorbed 12/10/2008 Tdap 05/27/2025,04/14/2015,07/02/2013 Zoster, Recombinant 04/11/2023,02/07/2023 Social History Tobacco Use [...] 18 05/27/2025 1:33 PM EST Oxygen Saturation 98% 11/28/2024 11: 47 AM EDT Inhaled Oxygen Concentration - - Weight 65.2 kg (143 lb 12.8 oz) 025 1:33 PM EST Height 149.9 cm (4' 11 ) 05/27/2025 1:33 PM EST Body Mass Index 29.04 05/27/2025 1:33 PM EST Plan of Treatment Upcoming Encounters Date Type Department Care Team (Late st Contact Info) Description 06/25/2025 3:00 PM EST Clinical Support [facility] [address] [place] [address] [phone] 08/28/2025 2:00 PM EST Office Visit [facility] [address] [place], [place] [phone] Marvin Harden MD [address] [place], [place] [phone] Health Maintenance Due Date Last Done Comments CT Colonography 1971 FIT DNA/Cologuard 1971 FIT 1971 FOBT 1971 Sigmoidoscopy 1971 Disability Screening 1971 Alcohol/Substance Use Screening 1983 Pap Smear 1992 Lung Cancer Screening 2021 Depression Monitoring 10/08/2024 04/09/2024, 024 COVID-19 Vaccine ( season) 2025 12/31/2020, 12/09/2020 Influenza Vaccine (#1) 2025 , 07/21/2020, 03/21/2017, Additional history exists SDOH Screening 08/05/2025 08/05/2024 Diabetes: Hemoglobin A1C 08/15/2025 08/15/2024 Cervical Cancer Screening 10/07/2025 HPV/Cotest 10/07/2025 10/07/2020, 10/07/2020 Pneumococcal Vaccine: 50+ Years (1 of 2 - PCV) 11/28/2025 Postponed from 1990 (Patient Refused) Tobacco Screening 11/28/2025 11/28/2024 Colonoscopy 02/04/2026 02/05/2016 Colorectal Cancer Screening 02/04/2026 Mammogram 08/29/2026 08/29/2024, 04/03, 04/06/2022, Additional history exists Lipid Panel 08/15/2029 08/15/2024, 04/14/2022 DTaP/Tdap/Td Vaccines (3 - Td or Tdap) 05/27/2035 05/27/2025, 04/14/2015, 07/02/2013, Additional history exists RSV Patients and Patients Aged 60 years [...] 025 1:41 PM EST) No Sid Walters, [place] Quit using tobacco (cigarettes, smokeless, etc) Tobacco Use Tobacco dependence syndrome No Sid Walters, PharmD Procedures Procedure Name Priority Date/Time Associated Diagnosis Comments XR FOOT 3+ VIEWS RIGHT Routine 05/27/2025 2:40 PM EST Right foot pain POCT GLUCOSE Routine 05/27/2025 1:35 PM EST Preventative health care AMB REFERRAL TO ORTHOPAEDIC SURGERY Routine 05/23/2025 Chronic midline low back pain without sciatica US PELVIS TRANSVAGINAL Routine 05/19/2025 6:53 PM [...] Recently Relevant to Health Maintenance Results * XR Foot 3+ Views Right (05/27/2025 2:40 PM EST) Anatomical Region Laterality Modality Lower Extremities, Foot Right Radiogra phic Imaging 05/27/2025 2:40 PM EST Narrative 05/27/2025 2:47 PM EST [address] [address] XRay Report Signed Patient: Neha Lizama MR#: [id number] 1 : 1970 Acct:[id number] Age/Sex: 54 / F ADM Date: 05/27/25 Loc: HOBRANDONX Attending Dr: Marvin Hough MD Ordering Physician: Marvin Hough MD Date of Service: 05/27/25 Procedure(s): XR foot RT min 3V Accession Number(s): [id number] cc: Marvin Hough MD Reason for Exam: [...] OV> 05/27/25 1444 DD/ 1440 TD/TT: 05/27/25 1441 Pharmacy Picking Tech: Procedure Note Donotuseinterpreter, Image - 05/27/[address] [address] XRay Report Signed Patient: Williams LizamaR#: [id number] 1 : 1970Acct:[id number] Age/Sex: 54 / FADM Date: 05/27/25 Loc: HO.HHCX Attending Dr: Marvin Hough MD Ordering Physician: Marvin Hough MD Date of Service: 05/27/25 Procedure(s): XR foot RT min 3V Accession Number(s): [id number] cc: Marvin Hough MD Reason for Exam: [...] Jason Rodriguez MD 05/27/2025 02:44 PM EST RP Dictated By: Jason Rodriguez MD Signed By: <Electronically signed by Jason Rodriguez MD in OV> 05/27/25 1444 DD/ 1440 TD/TT: 05/27/25 1441 Pharmacy Picking Tech: us Marvin Zapata MD IMG XR PROCEDURES Fin al Result * POCT Glucose (05/27/2025 1:35 PM EST) Glucose Blood, POC 154 60 - 200 mg/dL QC Media Lot # [id number] Lot# Expiration Date Blood Capillary blood specimen / Unknown 05/27/2025 1:35 PM EST us Marvin Zapata MD POINT OF CARE TEST EN TER/EDIT ORDERABLES Final Result * Referral to Orthopaedic Surgery (05/23/2025) us Marvin Zapata MD OUTPATIENT REFERRAL O RDERABLES Final Result * US Pelvis Transvaginal (05/19/2025 6:53 PM EST) Anatomical Region Laterality Modality Pelvis Ultrasound 05/19/2025 6:53 PM EST Narrative 05/19/2025 6:54 PM EST [address] [address] Ultrasound Report Signed Patient: Neha Lizama MR#: [id number] 1 : 1970 Acct:[id number] Age/Sex: 54 / F ADM Date: 05/19/25 Loc: HO.US Attending Dr: Sven Colin MD Ordering Physician: Sven Colin MD Date of Service: 05/19/25 Procedure(s): US pelvic and transvaginal Accession Number(s): [id number] cc: Marvin Hough MD; Sven Colin MD [...] in OV> 05/19/251853 DD/ 52 TD/TT: 05/19/251852 Pharmacy Picking Tech: Procedure Note Donotuseinterpreter, Image - 05/19/[address] [place] [address] Ultrasound Report Signed Patient: Desiree Lizama#: [id number] 1 : 1970Acct:[id number] Age/Sex: 54 / FADM Date: 05/19/25 Loc: HO.US Attending Dr: Sven Colin MD Ordering Physician: Sven Colin MD Date of Service: 05/19/25 Procedure(s): US pelvic and transvaginal Accession Number(s): [id number] cc: Marvin Hough MD; Sven Colin MD [...] in OV> 05/19/251853 DD/ 52 TD/TT: 05/19/251852 Pharmacy Picking Tech: [facility] External Provider IMG US PROCEDURES Final Result * TSH with Reflex to Free T4 (05/08/2025 9:54 AM EST) TSH reflex Free T4 0.65 0.32 - 4.0 uIU/mL [facility] 05/08/2025 9:54 AM EST 05/08/2025 10:00 AM EST us Generic External Data Provider LAB BLOOD ORDERAB LES Final Result Performing Organization Address City/[facility]/ZIP Co de Phone Number [facility] [address] [place] [address] [phone] * (ABNORMAL) CBC (05/08/2025 9:54 AM EST) White Blood Count 6.4 4.8 - 10.8 X10*3/uL [facility] Red Blood Count 5.04 4.20 - 5.50 X10*6/uL [facility] Hemoglobin 14.0 12.0 - 16.0 g/dl [facility] Hematocrit 44.4 37.0 - 47.0 % [facility] Mean Corpuscular Volume 88.1 80.0 - 98.0 fL [facility] Mean Corpuscular Hemoglobin 27.8 27.0 - 33.0 pg [facility] Mean Corpuscular HGB Conc 31.5 31.0 - 35.0 g/dl [facility] Red Cell Distribution Width 14.7 11.0 - 16.0 % [facility] Platelet Count 352 160 - 400 X10*3/uL [facility] Mean Platelet Volume 10.6 9.4 - 12.3 fL [facility] NRBC Pct Auto 0.8(H) 0.0 - 0.2 /100WBC [facility] NRBC Abs Auto 0.050(H) 0.0 - 0.012 X10*3/uL [facility] 05/08/2025 9:54 AM EST 05/08/2025 10:00 AM EST us Generic External Data Provider LAB BLOOD ORDERAB LES Final Result Performing Organization Address City/[facility]/ZIP Co de Phone Number [facility] [address] [place] [phone] [phone] * hCG, Total, Quantitative (05/08/2025 9:54 AM EST) HCG Quantitative <2 mIU/mL [facility] Comment:Weeks post LMP Appro ximate hCG(Last Menstrual Period) Range (mIU/ml)3 - 4 weeks 9 - 1304 - 5 weeks 75 - 2,6005 - 6 weeks 850 - 20,8006 - 7 weeks 4000 - 100,2007 - 12 weeks 11,500 - 289,52951 - 16 weeks 18,300 - 137,91289 - 29 weeks (2nd trimester) 1,400 - 53,27351 - 41 weeks (3rd trimester) 940 - [...] ORDERAB LES Final Result Performing Organization Address City/State/[facility] Co de Phone Number [facility] [address] [place] [phone] * LH (05/08/2025 9:54 AM EST) Lutenizing Hormone 28.9 mIU/mL [facility] Comment:Reference Range Foll icular Phase 1.9-12.5 Mid-Cycle Peak 8.7-76.3 Luteal Phase 0.5-16.9 Postmenopausal 10.0-54.7THIS TEST WAS PERFORMED AT:[facility] [place] [phone] GILBERT MD 05/08/2025 9:54 AM EST 05/08/2025 10:00 AM EST us Generic External Data Provider LAB BLOOD ORDERAB LES Final Result [facility] [address] [place] [phone] * FSH (05/08/2025 9:54 AM EST) Follicle Stimulating Hormone 55.3 mIU/mL [facility] Comment:Reference Range Foll icular Phase 2.5-10.2 Mid-cycle Peak 3.1-17.7 Luteal Phase 1.5- 9.1 Postmenopausal 23.0-116.3THIS TEST WAS PERFORMED AT:[facility] [place] [phone] GILBERT MD 05/08/2025 9:54 AM EST 05/08/2025 10:00 AM EST us Generic External Data Provider LAB BLOOD ORDERAB LES Final Result Performing Organization Address [facility] Phone Number [facility] [address] [place] [phone] * Hepatitis C Antibody with Reflex to HCV, RNA, Quantitative, Real-Time PCR (08/15/2024 10:32 AM EST) Pathologist [facility] Hepatitis C Antibody Nonreactive Nonreactive [facility] Comment:Antibodies to HCV no t detected; does not exclude early acuteHCV infection. Blood Venous blood specimen / Unknown 08/15/2024 10:32 AM EST 08/15/2024 11:15 AM EST us Marvin Zapata MD LAB BLOOD ORDERABLES Final Result Performing Organization Address [facility] Co de Phone Number [facility] [address] [place] [phone] * HIV-1/2 Antigen and Antibodies, Fourth Generation, with Reflexes (08/15/2024 10:32 AM EST) HIV AB/AG Nonreactive Nonreactive [facility] Comment:HIV-1 p24 Ag and/or HIV-1/HIV-2 Ab not detected.A test result that is nonreactive does not exclude thepossibility of exposure to or infection with HIV-1 and/orHIV-2. Nonreactive results in this assay for individualswith prior exposure to HIV-1 and/or HIV-2 may be due toantigen and antibody levels that are below the limit ofdetection of this assay.The [employer] HIV Ag/Ab Combo assay result andsupplemental assay results should be interpreted inconjunction with the patient's clinical presentation,history and other laboratory results. If the results areinconsistent with clinical evidence, additional testing issuggested to confirm the result. Blood Venous blood specimen / Unknown 08/15/2024 10:32 AM EST 08/15/2024 11:15 AM EST Marvin Zapata MD LAB BLOOD ORDERABLES Final Result Performing Organization Address [facility]/ZIP Co de Phone Number [facility] [address] [place] [phone] * Hemoglobin A1c (08/15/2024 10:32 AM EST) Hemoglobin A1c 5.7 <6.0 % [facility] Comment:Hemoglobin A1C Refer ence Range Adults: 4.8 - 6.0 % Non diabetic: < 6.0 % Goal: < 7.0 %Additional Action Suggested: > 8.0 %Note: Hemoglobin A1c results are invalid for patients with abnormal amounts of HbF. Blood transfusions may impact the HbA1c concentration in the patient sample. Estimated Average Glucose 117 mg/dL [facility] Comment:eAG = Estimated ave rage glucose which is %A1C expressed asaverage glucose, using the formula of the X1O-CpninsmDqgvwld Glucose study (ADAG), Diabetes Care, Vol.31,#8,Jan. 2007 08/15/2024 10:3 2 AM EST 08/15/2024 11:15 AM EST Marvin Zapata MD LAB BLOOD ORDERABLES Final Result Performing Organization Address [facility]/State/ZIP Co de Phone Number [facility] [address] [place] [phone] [phone] * (ABNORMAL) Lipid Panel, Standard (08/15/2024 10:32 AM EST) Triglycerides 162(H) <150 mg/dL [facility] Comment:Desirable Triglyceri de: less than 150 mg/dLBorderline High Triglyceride 150-199 mg/dLHigh Triglyceride: 200-499 mg/dLVery High Triglyceride: greater than or equal to 5OO mg/dL Cholesterol 204(H) <200 mg/dL [facility] Comment:Desirable Cholestero l: less than 200 mg/dLBorderline High Cholesterol: 200-239 mg/dLHigh Cholesterol: greater than 239 mg/dL LDL Cholesterol Calculated 125(H) <100 mg/dL [facility] Comment:Desirable LDL: less than 100 mg/dLNear Optimal/Above Optimal LDL: 110- 129 mg/dLBorderline High LDL: 130-159 mg/dLHigh LDL: 160-189 mg/dLVery High LDL: greater than or equal to 190 mg/dL HDL Cholesterol 47 >40 mg/dL [facility] Comment:Desirable HDL: great er than 40 mg/dL Note: This HDL assay may give artificially low results in patients with liver disease. Blood Venous blood specimen / Unknown 08/15/2024 10:32 AM EST 08/15/2024 11:15 AM EST Marvin Zapata MD LAB BLOOD ORDERABLES Final Result [facility] [address] [place] [phone] * BI Mammogram Screening Tomosynthesis Bilateral (04/28/2023 3:30 PM EDT) Anatomical Region Laterality Modality Breast Bilateral Mammography 04/28/2023 3:30 PM EDT Narrative 05/21/2023 11:05 PM EST [facility] [address] [place] [address] [place] [address] Mammography Report Signed Patient: Neha Lizama MR#: [id number] 1 : 1970 Acct:[id number] Age/Sex: 52 / F ADM Date: 04/28/23 Loc: ISSA Attending Dr: Marvin Hough MD Ordering Physician: Marvin Hough MD Resu lts: 1Negative Date of Service: 04/28/23 Follow Up: 1 Year From Orig inal Mammogram Procedure(s): MM tomosynthesis screening BI Accession Number(s): [id number] cc: Marvin Hough MD EXAMINATION: MM SCREENING [...] in OV> 05/21/23 2301 DD/ 1530 TD/TT: Pharmacy Picking Tech: Procedure Note Donotuseinterpreter, Image - 05/21/2023 [facility] [address] [place] [address] [place] [address] Mammography Report Signed Patient: Williams LizamaR#: [id number] 1 : 1970Acct:[id number] Age/Sex: 52 / FADM Date: 04/28/23 Loc: HO.MAMMO Attending Dr: Marvin Hough MD Ordering Physician: Marvin Hough MDResu lts: 1Negative Date of Service: 04/28/23Follow Up: 1 Year From Orig inal Mammogram Procedure(s): MM tomosynthesis screening BI Accession Number(s): [id number] cc: Marvin Hough MD EXAMINATION: MM SCREENING [...] in OV> 05/21/23 2301 DD/ 1530 TD/TT: Pharmacy Picking Tech: Marvin Zapata MD IMG BI PROCEDURES Christopher rambo Result - Final * HPV E6/E7 RFLX [place] 16 18/45 (10/07/2020 1:50 PM EDT) HPV 16 RNA [facility]NP [facility] HPV 18/45 RNA [facility]NP [facility] HPV E6 E7 ADD TNP [facility] HPV mRNA E6/E7 rflx Not Detected Not Detected [facility] Comment: Methodology: Glove Machine Operator-Mediated Amplification This assay detects E6/E7 viral messenger RNA (mRNA) from 14 high-risk HPV types (16,18,31,33,35,39,45,51,52,56,58,59,66,68). The analytical performance characteristics of this assay have been determined by [employer]. The modifications have not been cleared or approved by the FDA. This assay has been validated pursuant to the CLIA regulations and is used for clinical purposes. For additional information, please refer to http://education.[employer]/faq/YLF677x4 (This link if provided for information/ educational purposes only.) THIS TEST WAS PERFORMED AT: [facility] [address] [place] [address],[place] [phone] MARIVEL GILBERT MD 10/07/2020 1:50 PM EDT Sven Colin MD HISTORICAL/NON ORDERABLE LABS Fi nal Result [facility] [address] * Colonoscopy (02/05/2016) Colonoscopy Normal Normal Historical Provider HEALTH MAINTENANCE Final Result from Last 3 Months or Most Recently Relevant to Health Maintenance Insurance C3 Care Teams Equipment Operator Warehouse Relationship Specialty Start Date End Date Marvin Harden MD [address] [place] [phone] PCP - General Internal Medicine 07/31/14
--- OUTSIDE RECORDS SUMMARY | 2025-05-27 18:13 | XMS_ITS | Clinical Summary ---
Author Organization [facility] Address [address] [employer] [address] [address] Phone Care Team Providers Care Brim Setter Name Role Phone Marvin Hough MD Primary [...] ACO C3 ACO C3 ACO C3 ACO [facility] C3 ACO Care Teams Brim Setter Relationship Specialty Start Date End Date Marvin Hough MD [address] [place] [address] [phone] [place] [phone] josé PCP - General Internal Medicine 06/06/19 Additional Source Comments The information contained in this document represents components of the legal health record. It is not the complete legal health record.[facility]
--- OUTSIDE RECORDS SUMMARY | 2025-05-27 18:13 | XMS_ITS | Encounter Summary ---
Author Organization [employer] Address [address] [facility] [address] [place] [address] Care Team Providers Care Machine Feller Name Role Phone Marvin Harden MD Primary Care Provide r Reason for Visit * Reason Onset Date Comments Results 05/27/2025 Encounter Details Date Type Department [facility] Team ([facility] Description 05/27/2025 Results Follow-Up [facility] [address] [place] [phone] Marvin Harden MD [address] [place] [address] XR Foot 3+ Views Right Social History Tobacco Use Types Packs/Day Years [...] encounter Miscellaneous Notes * Telephone Encounter - Carlee Mac RN - 05/27/2025 3:46 PM EST Telephone call placed to pt regarding below results and pOC. No answer, left v/m. * Telephone Encounter - Carlee Mac RN - 05/27/2025 3:44 PM EST ----- Message from Marvin Zapata MD sent at 05/27/2025 3:12 PM EST ----- Please let patient know the x-ray of her foot was unremarkable, ask her to continue to use the topical NSAID. If worsening or no improvement to call us back ----- Message ----- From: Interface, Ris Results In Sent: 05/27/2025 2:48 PM EST To: Marvin Zapata MD * Result Encounter Note - Marvin Zapata MD - 05/27/2025 3:12 PM EST Please let patient know the x-ray of her foot was unremarkable, ask her to continue to use the topical NSAID. If worsening or no improvement to call us back documented in this encounter Plan of Treatment Upcoming Encounters Date Type Department Care Team (Late st Contact Info) Description 06/25/2025 3:00 PM EST Clinical Support [facility] [address] [place] [phone] 08/28/2025 2:00 PM EST Office Visit [facility] [address] [place] [phone] Marvin Harden MD [address] [place] [phone] documented as of this encounter Goals Goal Patient Goal Type Associated Problems Recent Progress Patient-Stated? Author Blood Pressure < 140/90 Blood Pressure 159/82( 025 1:41 PM EST) No Sid Walters, PharmD Quit using tobacco (cigarettes, smokeless, etc) Tobacco Use Tobacco dependence syndrome No Walters, Chaporil, PharmD documented as of this encounter Visit Diagnoses Not on filedocumented in this encounter Additional Health Concerns Assessment Noted Time PHQ-9 Depression Total Score: 15 024 10:06 AM EDT documented as of this encounter Care Teams Machine Feller Relationship Specialty Start Date End Date Marvin Harden MD [address] [place] [phone] PCP - General Internal Medicine 07/31/14 documented as of this encounter
--- OUTSIDE RECORDS SUMMARY | 2025-05-27 18:13 | XMS_ITS | Encounter Summary ---
Author Organization [employer] Address [address] [facility] [address] [place] [address] Care Team Providers Care Open Hearth Helper Name Role Phone Marvin Harden MD Primary Care Provide r Encounter Details Date Type Department Care Team (Latest Contact Info) Description 05/27/2025 Travel Social History Tobacco Use Types Packs/Day Years [...] Description 06/25/2025 3:00 PM EST Clinical Support [facility] [address] [place] [phone] 08/28/2025 2:00 PM EST Office Visit [facility] [address] [place] [phone] Marvin Harden MD [address] [place] [phone] documented as of this encounter Goals Goal Patient Goal Type Associated Problems Recent Progress Patient-Stated? Author Blood Pressure < 140/90 Blood Pressure 159/82( 025 1:41 PM EST) No Chapo Waltersril, PharmD Quit using tobacco (cigarettes, smokeless, etc) Tobacco Use Tobacco dependence syndrome No Walters, Jerril, PharmD documented as of this encounter Visit Diagnoses Not on filedocumented in this encounter Additional Health Concerns Assessment Noted Time PHQ-9 Depression Total Score: 15 024 10:06 AM EDT documented as of this encounter Care Teams Open Hearth Helper Relationship Specialty Start Date End Date Marvin Harden MD [address] [place] [phone] PCP - General Internal Medicine 07/31/14 documented as of this encounter
== END 2025-05-27 14:22 | disposition home or self-care (01) ==
LOC: HO.HHCX 14:21
PROVIDERS: PCP Internal Medicine; Visit Provider Internal Medicine
DX: M79.671 Pain in right foot (principal)
CPT/HCPCS: 73630

== ENCOUNTER → 2025-05-27 14:24 | Outpatient (BNV) | payer MEDICAID, SELFPAY | PROVIDERS: PCP Internal Medicine; Visit Provider Radiology Diagnostic Radiology | DX: M25.571 Pain in right ankle and joints of right foot (principal) | CPT/HCPCS: 73630 ==

== ENCOUNTER 2025-06-25 08:24 | Outpatient (AMB) | payer MEDICAID, SELFPAY ==
--- NOTE | 2025-06-25 08:24 | A.OFFVIS_ITS ---
Intake Visit Reasons: EMB results Allergies acetaminophen (From Percocet) Adverse Reaction (Mild, Verified 06/25/25 08:24) Itching oxycodone (From Percocet) Adverse Reaction (Mild, Verified 06/25/25 08:24) Itching HPI Comments Details: The patient scheduled a telehealth visit for follow-up to discuss the results of her abnormal uterine bleeding workup and options of treatment. The following workup was done.: H&H= 14/44.4 TSH, hCG, GC and chlamydia were negative. FSH/LH= 55.3/28.9 Endometrial biopsy pathology showed the following: Endometrium, biopsy: - Weakly proliferative endometrium with focal breakdown; no atypia or hyperplasia identified. - Rare strips of endocervical epithelium within normal limits Co testing was done in 05/27 was negative. Mammogram was done in 08/27 and was BI-RADS 2. Pelvic ultrasound showed the following: Uterus measures 10.3 cm x 8 cm x 7.8 cm. Diffuse myometrial heterogeneity. Scattered four small myometrial fibroid measuring 0.9 cm, 1.6 cm, 2.2 cm and 0.8 cm. Endometrium 6 mm thickness. Right ovary 2.7 x 1.7 x 1.5 cm. Left ovary 3.2 x 1.6 x 2.7 cm. Simple cyst adjacent to left ovary measuring 2.7 cm x 1.1 cm x 1.7 cm. Normal color Doppler of both ovaries. Small nabothian cysts. No free fluid. [facility] Medical History HTN (hypertension) H/O nephrolithotomy with removal of calculi Back problem Kidney stones Surgical History History of appendectomy Hx of abdominoplasty History of breast reconstruction History of bilateral tubal ligation Family History Mother HTN (hypertension) Father Emphysema lung Paternal Aunt Breast cancer in female Social History Household Members Other:: daughter Housing: House Alcohol intake: never Patient Tobacco Use Status: Current everyday Tobacco user Cigarettes Per Day: 1 Current occupational status: unemployed Sexual orientation: Straight/Heterosexual Gender identity: Female Female Reproductive History Menstrual Age of Menarche: 13 Review of Systems Const All systems reviewed & are unremarkable except as noted in HPI and below Reports as per HPI and Reports no additional complaints GI Reports no additional complaints Reports no additional complaints Telehealth Telehealth Telehealth Platform: Appointuit Location of provider rendering services: practice address Location of patient: address on file Patient Identification confirmed using: Name, : Yes Telehealth method: video Patient verbally consented to treatment: Yes Patient verbally consented to billing insurance company: Yes Patient informed of any privacy concerns related to visit: Yes Minutes spent on Phone/Video with Pt.: 5 Assessment & Plan Assessment & Plan (1) Abnormal uterine bleeding (AUB): Comment: Elevated FSH/LH Code(s): N93.9 - Abnormal uterine and vaginal bleeding, unspecified Category: Medical Plan: Discussed with the patient the results of the work up done and options of treatment including but not limited to BCP's, cyclic Progesterone, Mirena IUD, endometrial ablation and hysterectomy. All pros, cons, risks and benefits of each option were discussed with the patient and the patient decided to go ahead with cyclic Provera, so a more detailed discussion re: Progesterone treatment including mechanism of action, benefits (regular menses, endometrial protection form unopposed estrogen and reduction in the risk of endometrial hyperplasia and/or cancer ...), risks (Thrombosis, mood changes, weight gain, breast soreness, ? increased breast ca, others). Instructions were given to use a back- up method for contraception since this is not a method control, take the medication 1 tablet daily starting day 15-24 and to schedule a 3 months follow- up appointment; patient verbalized understanding and agreed with the plan. (2) Uterine myoma: Code(s): D25.9 - Leiomyoma of uterus, unspecified Category: Medical Plan: Discussed with the patient the findings on pelvic ultrasound & the risk of myosarcoma; in addition reviewed with the patient that malignancy and pre malignancy cannot be ruled out without hysterectomy for pathological evaluation ; furthermore, explained to the patient the limitation of pelvic ultrasound and endometrial biopsy in the setting. Discussed with the patient the options of treatment including expectant management versus hysterectomy; the pros and cons, risks benefits of each approach were discussed with the patient including the fact that in cases of myosarcoma, surgical treatment can lead to early diagnosis and positively affects the prognosis; after further discussion, the patient decided to proceed with expectant management. Will repeat pelvic ultrasound periodically. Instructions given to patient to call in case any of the following occurs: pressure symptoms, abnormal uterine bleeding, pelvic pain; and to schedule a six-months pelvic ultrasound (order placed) and a follow-up appointment . All questions answered, the patient verbalized understanding and agreed with the plan . I spent a total of 20 minutes reviewing the chart, talking to the patient via video and documenting in the medical record. Orders: Orders US pelvic and transvaginal 6 Months D25.9 - Leiomyoma of uterus, unspecified Medications: New medroxyprogesterone (Provera) start Provera 1 tablet daily from day 15-24 cyclically every months, day 1 being 1st day of menses 10 mg PO DAILY 30 tabs 0RF 90 days Coding Level of Care Code Tele Est Pt Level 3 (29154) Diagnoses Abnormal uterine bleeding (AUB) N93.9 Uterine myoma D25.9
--- OUTSIDE RECORDS SUMMARY | 2025-06-25 08:27 | XMS_ITS | Clinical Summary ---
Author Organization [employer] Address [address] [place] [address] 7[address] [place] [address] Care Team Providers Care Skid Man Name Role Phone Marvin Harden MD Primary [...] for a f/u Under the care of Hospice Patient Care Secretary Dr. Sven Colin , last seen 02/05/2024, [...] reason she was referred to Sven Colin JAZZ SINGER . He repeated her Pelvis US that [...] for a f/u Under the care of Hospice Patient Care Secretary Dr. Sven Colin , last seen 03/10/2021, [...] reason she was referred to Sven Colin JAZZ SINGER . He repeated her Pelvis US that [...] referral to a tertiary care center in [place] to be evaluated by a Neurosurgeon for a second opinion. On 09/04/2019 She was finally seen by Dr. Akbar Osuna at the [facility] Neuro[facility] office at [facility]. He mentions in his notes he asked [...] referral to a tertiary care center in [place] to be evaluated by a Neurosurgeon for a second opinion. On 09/04/2019 She was finally seen by Dr. Akbar Osuna at the [facility] Neurosurgery office at [facility]. He mentions in his notes he asked [...] (08/11/2022 12:45 PM EST): Being evaluated by JAZZ SINGER, according to pt she might be referred to Uro gynecology per her JAZZ SINGER. will f/u She was seen by Urology [...] a neurologist in the area. TSH was Critical access hospital 08/11/2022 Assessment & Plan (05/27/2025 1:31 PM [...] Plan (05/27/2025 1:36 PM EST): Future appointment [facility] Gastro 08/13/2025 @ 8am. Kidney stone 12/02/2014 [...] 12:46 PM EST): Pt seen by the site safety representative who diagnosed her with Lichen simplex chronicus [...] has a new psychotherapist, Dianelys Lizama at [facility] she declines to be referred to [...] seen for a second opinion at the [facility]. 09/04/2019 Encounters Date Type Department Care Team Description 06/24/2025 Telephone [facility] Joseph Metcalf [place] [address] Marvin Harden MD Appointment Request 06/17/2025 Telephone [facility] [place] [address] Marvin Harden MD Appointment Request 05/27/2025 1:15 PM EST Office Visit [facility] Joseph Metcalf [place] [address] Marvin Harden MD Essential hypertension (Primary Dx); Chronic midline low back pain without sciatica; Screening for colorectal cancer; Preventative health care; Right foot pain; Encounter for immunization 05/27/2025 Results Follow-Up [facility] [address] [place] [phone] Marvin Harden MD XR Foot 3+ Views Right 05/27/2025 Travel 05/23/[address] [address] Marvin Harden MD 05/19/2025 Orders Only [facility] External Provider, [facility] 05/19/2025 Patient Outreach [facility] [address] [place] [address] Marvin Harden MD Pre-visit Planning (Pre-visit planning - LVM ) 04/03/2025 Orders Only [address] [address] Marvin Harden MD Chronic midline low back pain without sciatica (Primary Dx) 04/01/[address] [address] Marvin Harden MD Referral from Last 3 Months Immunizations Immunization Administration [...] Date Smoking Tobacco: Some Days Cigarettes 0.5 40 Started: 1985 Passive Smoke Exposure: Current Smokeless [...] Care Team (Late st Contact Info) Description 07/01/2025 2:30 PM EST Clinical Support [facility] [address] [place] [phone] Health Maintenance Due Date Last Done Comments [...] PM EST Right foot pain POCT GLUCOSE ([id number]) Routine 05/27/2025 1:35 PM EST Preventative health [...] PM EST Narrative 05/27/2025 2:47 PM EST [address] [address] XRay Report Signed Patient: Neha Lizama MR#: [id number] 1 : 1970 Acct:[id number] Age/Sex: 54 / F ADM Date: 05/27/25 Loc: ROBBIE Attending Dr: Marvin Hough MD Ordering Physician: Marvin Hough MD Date of Service: 05/27/25 Procedure(s): XR foot RT min 3V Accession Number(s): [id number] cc: Marvin Hough MD Reason for Exam: [...] 05/27/25 1444 DD/ 1440 TD/TT: 05/27/25 1441 Upsetter: Procedure Note Donotaudrainterpreter, Image - 05/27/2025 [place] [address] XRay Report Signed Patient: Desiree Lizama#: [id number] 1 : 1970Acct:[id number] Age/Sex: 54 / FADM Date: 05/27/25 Loc: ROBBIE Attending Dr: Marvin Hough MD Ordering Physician: Marvin Hough MD Date of Service: 05/27/25 Procedure(s): XR foot RT min 3V Accession Number(s): [id number] cc: Marvin Hough MD Reason for Exam: [...] 05/27/25 1444 DD/ 1440 TD/TT: 05/27/25 1441 Upsetter: us Marvin Zapata MD IMG XR PROCEDURES [...] PM EST Narrative 05/19/2025 6:54 PM EST [address] [address] Ultrasound Report Signed Patient: Neha Lizama MR#: [id number] 1 : 1970 Acct:[id number] Age/Sex: 54 / F ADM Date: 05/19/25 Loc: HO.US Attending Dr: Sven Colin MD Ordering Physician: Sven Colin MD Date of Service: 05/19/25 Procedure(s): US pelvic and transvaginal Accession Number(s): [id number] cc: Marvin Hough MD; Sven Colin MD [...] in OV> 05/19/251853 DD/ 52 TD/TT: 05/19/251852 Upsetter: Procedure Note Donotuseinterpreter, Image - 05/19/2025 [place] [address] Ultrasound Report Signed Patient: Desiree Lizama#: [id number] 1 : 1970Acct:[id number] Age/Sex: 54 / FADM Date: 05/19/25 Loc: HO.US Attending Dr: Sven Colin MD Ordering Physician: Sven Colin MD Date of Service: 05/19/25 Procedure(s): US pelvic and transvaginal Accession Number(s): [id number] cc: Marvin Hough MD; Sven Colin MD [...] in OV> 05/19/251853 DD/ 52 TD/TT: 05/19/251852 Upsetter: us [facility] External Provider IMG US PROCEDURES Final Result * TSH with Reflex to Free T4 (05/08/2025 9:54 AM EST) TSH reflex Free T4 0.65 0.32 - 4.0 uIU/mL [facility] 05/08/2025 9:54 AM EST 05/08/2025 10:00 AM EST Generic External Data Provider LAB BLOOD ORDERAB LES Final Result [facility] [address] [place] [phone] * (ABNORMAL) CBC (05/08/2025 9:54 AM EST) White Blood Count 6.4 4.8 - 10.8 X10*3/uL [facility] Red Blood Count 5.04 4.20 - 5.50 X10*6/uL [facility] Hemoglobin 14.0 12.0 - 16.0 g/dl [facility] Hematocrit 44.4 37.0 - 47.0 % [facility] Mean Corpuscular Volume 88.1 80.0 - 98.0 fL [facility] Mean Corpuscular Hemoglobin 27.8 27.0 - 33.0 pg [facility] Mean Corpuscular HGB Conc 31.5 31.0 - 35.0 g/dl [facility] Red Cell Distribution Width 14.7 11.0 - 16.0 % [facility] Platelet Count 352 160 - 400 X10*3/uL [facility] Mean Platelet Volume 10.6 9.4 - 12.3 fL [facility] NRBC Pct Auto 0.8(H) 0.0 - 0.2 /100WBC [facility] NRBC Abs Auto 0.050(H) 0.0 - 0.012 X10*3/uL [facility] 05/08/2025 9:54 AM EST 05/08/2025 10:00 AM EST us Generic External Data Provider LAB BLOOD ORDERAB LES Final Result [facility] [address] [place] [phone] * hCG, Total, Quantitative (05/08/2025 9:54 AM EST) HCG Quantitative <2 mIU/mL [facility] Comment:Weeks post LMP Appro ximate hCG(Last Menstrual Period) Range (mIU/ml)3 - 4 weeks 9 - 1304 - 5 weeks 75 - 2,6005 - 6 weeks 850 - 20,8006 - 7 weeks 4000 - 100,2007 - 12 weeks 11,500 - 289,94975 - 16 weeks 18,300 - 137,44227 - 29 weeks (2nd trimester) 1,400 - 53,05854 - 41 weeks (3rd trimester) 940 - [...] ORDERAB LES Final Result Performing Organization Address [facility] Co de Phone Number [facility] [address] [place] [phone] * LH (05/08/2025 9:54 AM EST) Lutenizing Hormone 28.9 mIU/mL [facility] Comment:Reference Range Foll icular Phase 1.9-12.5 Mid-Cycle Peak 8.7-76.3 Luteal Phase 0.5-16.9 Postmenopausal 10.0-54.7THIS TEST WAS PERFORMED AT:[employer] [place] [phone] GILBERT MD 05/08/2025 9:54 AM EST 05/08/2025 10:00 AM EST Generic External Data Provider LAB BLOOD ORDERAB LES Final Result Performing Organization Address [facility]/ZIP Co de Phone Number [facility] [address] [place] [phone] * FSH (05/08/2025 9:54 AM EST) Follicle Stimulating Hormone 55.3 mIU/mL [facility] Comment:Reference Range Foll icular Phase 2.5-10.2 Mid-cycle Peak 3.1-17.7 Luteal Phase 1.5- 9.1 Postmenopausal 23.0-116.3THIS TEST WAS PERFORMED AT:[employer] [place] [phone] GILBERT MD 05/08/2025 9:54 AM EST 05/08/2025 10:00 AM EST Generic External Data Provider LAB BLOOD ORDERAB LES Final Result Performing Organization Address [facility]/ZIP Co de Phone Number [facility] [address] [place] [phone] * Hepatitis C Antibody with Reflex to HCV, RNA, Quantitative, Real-Time PCR (08/15/2024 10:32 AM EST) Pathologist [facility] Hepatitis C Antibody Nonreactive Nonreactive [facility] Comment:Antibodies to HCV no t detected; does not exclude early acuteHCV infection. Blood Venous blood specimen / Unknown 08/15/2024 10:32 AM EST 08/15/2024 11:15 AM EST Marvin Zapata MD LAB BLOOD ORDERABLES Final Result Performing Organization Address [facility] Co de Phone Number [facility] [address] [place] [phone] * HIV-1/2 Antigen and Antibodies, Fourth Generation, with Reflexes (08/15/2024 10:32 AM EST) HIV AB/AG Nonreactive Nonreactive [facility] Comment:HIV-1 p24 Ag and/or HIV-1/HIV-2 Ab not detected.A test result that is nonreactive does not exclude thepossibility of exposure to or infection with HIV-1 and/orHIV-2. Nonreactive results in this assay for individualswith prior exposure to HIV-1 and/or HIV-2 may be due toantigen and antibody levels that are below the limit ofdetection of this assay.The [employer] HIV Ag/Ab Combo assay result andsupplemental assay results should be interpreted inconjunction with the patient's clinical presentation,history and other laboratory results. If the results areinconsistent with clinical evidence, additional testing issuggested to confirm the result. Blood Venous blood specimen / Unknown 08/15/2024 10:32 AM EST 08/15/2024 11:15 AM EST Marvin Zapata MD LAB BLOOD ORDERABLES Final Result Performing Organization Address City/[facility]/ZIP Co de Phone Number [facility] [address] [place] [phone] * Hemoglobin A1c (08/15/2024 10:32 AM EST) Hemoglobin A1c 5.7 <6.0 % [facility] Comment:Hemoglobin A1C Refer ence Range Adults: 4.8 - 6.0 % Non diabetic: < 6.0 % Goal: < 7.0 %Additional Action Suggested: > 8.0 %Note: Hemoglobin A1c results are invalid for patients with abnormal amounts of HbF. Blood transfusions may impact the HbA1c concentration in the patient sample. Estimated Average Glucose 117 mg/dL [facility] Comment:eAG = Estimated ave rage glucose which is %A1C expressed asaverage glucose, using the formula of the M0M-IbsjyofLuihdfo Glucose study (ADAG), Diabetes Care, Vol.31,#8,Aug. 2007 08/15/2024 10:3 2 AM EST 08/15/2024 11:15 AM EST Marvin Zapata MD LAB BLOOD ORDERABLES Final Result Performing Organization Address [facility]/ZIP Co de Phone Number [facility] [address] [place] [phone] * (ABNORMAL) Lipid Panel, Standard (08/15/2024 10:32 AM EST) Triglycerides 162(H) <150 mg/dL [facility] Comment:Desirable Triglyceri de: less than 150 mg/dLBorderline High Triglyceride 150-199 mg/dLHigh Triglyceride: 200-499 mg/dLVery High Triglyceride: greater than or equal to 5OO mg/dL Cholesterol 204(H) <200 mg/dL [facility] Comment:Desirable Cholestero l: less than 200 mg/dLBorderline High Cholesterol: 200-239 mg/dLHigh Cholesterol: greater than 239 mg/dL LDL Cholesterol Calculated 125(H) <100 mg/dL [facility] Comment:Desirable LDL: less than 100 mg/dLNear [...] Zapata MD LAB BLOOD ORDERABLES Final Result [facility] [address] [place] [phone] * BI Mammogram Screening Tomosynthesis Bilateral (04/28/2023 3:30 PM EDT) Anatomical Region Laterality Modality Breast Bilateral Mammography 04/28/2023 3:30 PM EDT Narrative 05/21/2023 11:05 PM EST [facility] [address] [place] [address] [place] [address] Mammography Report Signed Patient: Neha Lizama MR#: [id number] 1 : 1970 Acct:[id number] Age/Sex: 52 / F ADM Date: 04/28/23 Loc: ISSA Attending Dr: Marvin Hough MD Ordering Physician: Marvin Hough MD Resu lts: 1Negative Date of Service: 04/28/23 Follow Up: 1 Year From Orig inal Mammogram Procedure(s): MM tomosynthesis screening BI Accession Number(s): [id number] cc: Marvin Hough MD EXAMINATION: MM SCREENING [...] in OV> 05/21/23 2301 DD/ 1530 TD/TT: Upsetter: Procedure Note Donotuseinterpreter, Image - 05/21/2023 [facility] [address] [place], [place] [address] Mammography Report Signed Patient: Desiree Lizama#: [id number] 1 : 1970Acct:[id number] Age/Sex: 52 / FADM Date: 04/28/23 Loc: MAMMO Attending Dr: Marvin Hough MD Ordering Physician: Marvin Hough MDResu lts: 1Negative Date of Service: 04/28/23Follow Up: 1 Year From Orig inal Mammogram Procedure(s): MM tomosynthesis screening BI Accession Number(s): [id number] cc: Marvin Huogh MD EXAMINATION: MM SCREENING DIGITAL BREAST TOMOSYNTHESIS, [...] in OV> 05/21/23 2301 DD/ 1530 TD/TT: Upsetter: us Marvin Zapata MD IMG BI PROCEDURES Christopher rambo Result - Final * HPV E6/E7 RFLX [place] 16 18/45 (10/07/2020 1:50 PM EDT) HPV 16 RNA [facility] HPV 18/45 RNA [facility] HPV E6 E7 ADD [facility] HPV mRNA E6/E7 rflx Not Detected Not Detected [facility] Comment: Methodology: Cooking Show Host-Mediated Amplification This assay detects E6/E7 viral messenger RNA (mRNA) from 14 high-risk HPV types (16,18,31,33,35,39,45,51,52,56,58,59,66,68). The analytical performance characteristics of this assay have been determined by [employer]. The modifications have not been cleared or approved by the FDA. This assay has been validated pursuant to the CLIA regulations and is used for clinical purposes. For additional information, please refer to http://education.[facility].Sarbari/faq/FYD310x2 (This link if provided for information/ educational purposes only.) THIS TEST WAS PERFORMED AT: [employer] [address] [place] [address] [address]LO[address],[place] [phone] MARIVEL GILBERT MD 10/07/2020 1:50 PM EDT Sven Colin MD HISTORICAL/NON ORDERABLE LABS Fi nal Result [facility] * Colonoscopy (02/05/2016) Colonoscopy Normal Normal Historical Provider HEALTH MAINTENANCE Final Result from Last 3 Months or Most Recently Relevant to Health Maintenance Insurance C3 Care Teams Skid Man Relationship Specialty Start Date End Date Marvin Harden MD [address] [place] [address] PCP - General Internal Medicine 07/31/14
--- OUTSIDE RECORDS SUMMARY | 2025-06-25 08:27 | XMS_ITS | Encounter Summary ---
Author Organization [employer] Address [address] [facility] 7 [place] [address] Care Team Providers Care General Inspector Name Role Phone Marvin Harden MD Primary Care Provide r Reason for Visit * Reason Onset Date Comments Appointment Request 06/24/2025 Encounter Details Date Type Department Care Team ([facility] Contact Info) Description 06/24/2025 Telephone [facility] [address] [place], [place] [phone] Marvin Harden MD [address] [place], [place] [phone] Appointment Request Social History Tobacco Use Types Packs/Day Years [...] encounter Miscellaneous Notes * Telephone Encounter - Sandy Olivia RN - 06/24/2025 9:13 AM EST Telephone call to pt to reschedule RN visit 06/24/25 due to clinic closure. No answer, left voicemail to call back [facility]. Will send [employer] message. Rescheduled appointment as below, pt to call back PRN and change appointment time as needed. documented in this encounter Plan of Treatment Upcoming Encounters Date Type Department Care Team (Late st Contact Info) Description 07/01/2025 2:30 PM EST Clinical Support [facility] [address] [place] [phone] documented as of this encounter Goals Goal Patient Goal Type Associated Problems Recent Progress Patient-Stated? Author Blood Pressure < 140/90 Blood Pressure 159/82( 025 1:41 PM EST) No Sid Walters, PharmD Quit using tobacco (cigarettes, smokeless, etc) Tobacco Use Tobacco dependence syndrome No Yen Waltersl, PharmD documented as of this encounter Visit Diagnoses Not on filedocumented in this encounter Additional Health Concerns Assessment Noted Time PHQ-9 Depression Total Score: 15 024 10:06 AM EDT documented as of this encounter Care Teams General Inspector Relationship Specialty Start Date End Date Marvin Harden MD [address] [place] [phone] PCP - General Internal Medicine 07/31/14 documented as of this encounter
--- OUTSIDE RECORDS SUMMARY | 2025-06-25 08:27 | XMS_ITS | Clinical Summary ---
Author Organization [facility] Address [address] [employer] [address] [address] Phone Care Team Providers Care Manager Sterile Processing Name Role Phone Marvin Hough MD Primary [...] ACO C3 ACO C3 ACO C3 ACO [facility] C3 ACO Care Teams Manager Sterile Processing Relationship Specialty Start Date End Date Marvin Hough MD [address] [place] [address] [address] [place] [phone] josé PCP - General Internal Medicine 06/06/19 Additional Source Comments The information contained in this document represents components of the legal health record. It is not the complete legal health record.[facility]
== END 2025-06-25 08:46 | disposition home or self-care (01) ==
LOC: HO.HWS 08:24
PROVIDERS: PCP Internal Medicine; Visit Provider Obstetrics & Gynecology
DX: N93.9 Abnormal uterine and vaginal bleeding, unspecified (principal); D25.9 Leiomyoma of uterus, unspecified
CPT/HCPCS: 99213